=== PATIENT | female | born 1985 | race Caucasian/White ===

== ENCOUNTER 2016-04-08 02:43 | Emergency (ER) | payer OTHER ==
[2016-04-08] MEDS ORDERED: ONDANSETRON 4MG/2ML VIAL (J2405) As Ordered ONE (04:26)
[2016-04-08] MEDS ORDERED: MORPHINE 4 MG/ML 1ML SYRINGE As Ordered ONE ×2 (04:27→05:25)
[2016-04-08 04:34] LABS: BASO # 0.1 K/mm3 (0.0-0.2); BASO % 1.1 % (0.0-1.0); EOS # 0.2 K/mm3 (0.0-0.50); LARGE UNSTAINED CELL # 0.2 K/mm3 (0.0-0.4); LARGE UNSTAINED CELL % 1.7 % (0.0-4.0); LYMPH # 2.6 K/mm3 (1.5-4.5); LYMPH % 25.1 % (24.0-44.0); MEAN CORPUSCULAR HEMOGLOBIN 26.3 pg (27.0-33.0); MEAN CORPUSCULAR HGB CONC 32.2 g/dl (32.0-36.5); MEAN CORPUSCULAR VOLUME 81.9 fl (80.0-96.0); MONO # 0.4 K/mm3 (0.0-0.8); NEUTROPHILS # 6.5 K/mm3 (1.8-7.7); PLATELET COUNT, AUTOMATED 273 k/mm3 (150-450); RED CELL DISTRIBUTION WIDTH 14.7 % (11.5-14.5); WHITE BLOOD COUNT 9.8 K/mm3 (4.0-10.0)
[2016-04-08 04:41] LABS: CONTROL LINE HCG INT CTR LINE PRESENT
[2016-04-08 04:47] LABS: ALBUMIN 3.5 GM/DL (3.2-5.2); ALBUMIN/GLOBULIN RATIO 0.85 (1.00-1.93); ALKALINE PHOSPHATASE 140 U/L (45-117); ALT/SGPT 39 U/L (12-78); AMYLASE 26 U/L (25-115); ANION GAP 7 MEQ/L (8-16); AST/SGOT 32 U/L (15-37); BILIRUBIN,DIRECT 0.1 MG/DL (0.0-0.2); BILIRUBIN,TOTAL 0.3 MG/DL (0.2-1.0); BLOOD UREA NITROGEN 14 MG/DL (7-18); CARBON DIOXIDE LEVEL 28 MEQ/L (21-32); CHLORIDE LEVEL 109 MEQ/L (98-107); CREATININE FOR GFR 0.76 MG/DL (0.55-1.02); GLOMERULAR FILTRATION RATE > 60.0 (>60); GLUCOSE, FASTING 110 MG/DL (70-105); POTASSIUM SERUM 4.4 MEQ/L (3.5-5.1); SODIUM LEVEL 144 MEQ/L (136-145); TOTAL PROTEIN 7.6 GM/DL (6.4-8.2)
--- NOTE | 2016-04-08 06:20 | REPUSA ---
CLINICAL HISTORY: Pelvic pain. TECHNIQUE: Realtime sonographic images were obtained in multiple projections via TV approach. COMMENTS: The uterus is anteverted measuring 9.2x4.7x5.9 cm . Nabothian cysts of the uterine cervix. The endome trial echo pattern is within normal limits measuring 7.8 mm. There is no evidence of free fluid within the pelvic cul-de-sac. The right ovary measures 3.1x2.5x3.3 cm and the left ovary measures 3.7x2.3 times a 3 cm . Both ovari es are free of solid or cystic mass. There is no evidence for abnormal vascularity. IMPRESSION: Nabothian cysts of the uterine cervix. Thank you for your kind referral of this patient.
[2016-04-08] MEDS ORDERED: NORCO 5/325MG TABLET (BULK) As Ordered ONE (06:46)
--- NOTE | 2016-04-08 06:53 | EDDOCDS ---
Nurse's Notes [facility] Name: Som Escobar Age: 30 yrs Sex: Female : 1985 Arrival Date: 04/08/2016 Time: 02:43 Bed 14 Private MD: Diagnosis: Abdominal and pelvic pain Presentation: 04/08 02:56 Presenting complaint: Patient states: she is having pelvic pain that started around cz 2200 last night no vaginal discharge no UTI symptoms. pt states when she cough's it feels like her left groin area is burning/tearing. Adult Sepsis Screening: The patient does not have new or worsening altered mentation. Patient's respiratory rate is less than 22. Systolic blood pressure is greater than 100. Patient has a qSOFA score of 0- Negative Sepsis Screen. Suicide/Homicide risk assessment- the patient denies having any suicidal and/or homicidal ideations and does not present with any other emotional, behavioral or mental health complaints. Status: Patient is not a emergency medical service coordinator or dependent. Transition of care: patient was not received from another setting of care. 02:56 Acuity: JOSE Level 3 cz 02:56 Method Of Arrival: Walkin/Carried/Asstd cz Triage Assessment: 02:58 General: Appears uncomfortable. Pain: Location: left femoral area, left inguinal area cz and left iliac crest Pain currently is 10 out of 10 on a pain scale. HIV screening NA for this visit Offered previously. 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 lisinopril 20 mg Oral tab 1 tab once daily 2. metoprolol tartrate 100 mg Oral tab 1 tab once daily 3. amoxicillin 500 mg Oral cap 1 cap every 12 hours - PMHx: Hypertension; Polycystic Ovary Disease; - PSHx: Appendectomy; ; - Social history: Smoking status: Patient states former smoker of tobacco. No barriers to communication noted, The patient speaks fluent Lao, Speaks appropriately for age. - Family history: Not pertinent. - : The pt / caregiver states he / she is not on anticoagulants. Home medication list is obtained from the patient. - Exposure Risk Screening:: None identified. Screenin:39 Screening information is obtained from the patient. Fall risk: No risks identified. tm5 Assistance ADL's: requires no assistance with activities of daily living. Abuse/DV Screen: The patient / caregiver reports he/she is: not in a situation that causes fear, pain or injury. Nutritional screening: No deficits noted. Advance Directives: There is no active DNR order. home support is adequate. Assessment: 04:39 General: Appears uncomfortable, Behavior is appropriate for age, cooperative. Pain: tm5 Location: left femoral area and left inguinal area Pain currently is 8 out of 10 on a pain scale. Quality of pain is described as sharp. Neurological: Level of Consciousness is awake, alert, Oriented to person, place, time. Respiratory: Airway is patent Respiratory effort is even, unlabored, Respiratory pattern is regular, symmetrical. GI: Abdomen is obese, Bowel sounds present X 4 quads. Abd is soft and non tender X 4 quads. : No deficits noted. Derm: Skin is pink, warm & dry. normal. Musculoskeletal: No deficits noted. 06:14 Reassessment: Patient appears in no apparent distress at this time. Patient states tm5 feeling better. Patient states symptoms have improved. Vital Signs: 02:58 BP 141 / 101; Pulse 77; Resp 16; Temp 97.4(T); Pulse Ox 99% on R/A; Weight 104.33 kg; cz Height 5 ft. 3 in. (160.02 cm); 05:25 BP 148 / 85 (auto/); tm5 05:26 Pulse 68 MON; Resp 16 S; Pulse Ox 98% on R/A; Pain 8/10; tm5 06:31 BP 143 / 93; Pulse 69; Resp 18; Temp 96.3(O); Pulse Ox 97% on R/A; Pain 7/10; kb5 06:34 BP 139 / 92; Pulse 72; Resp 18; Temp 97.7(TE); Pulse Ox 96% on R/A; Pain 8/10; desmond 02:58 Body Mass Index 40.74 (104.33 kg, 160.02 cm) Vitals: 02:58 Log In Time: April 08, 2016 at 02:43. ED Course: 02:45 Patient visited by Guillaume Briggs, Reg. pm4 02:45 Patient moved to Waiting pm4 02:54 Patient moved to Triage 1 02:57 Triage Initiated cz 03:02 Patient moved to Pre RCE cz 03:06 Patient moved to 14 cz 03:22 Patient visited by Ang Godinez PCA. kb5 03:43 Mark Vargas DO is Attending Physician. mm11 03:43 Patient visited by Mark Vargas DO. mm11 03:47 Patient visited by Twila Stevenson RN. tm5 03:59 Patient visited by Mark Vargas DO. mm11 04:24 Patient visited by Twila Stevenson RN. tm5 04:24 Inserted saline lock: 20 gauge in right hand and blood collected. The patient tolerated tm5 the procedure well. Labs drawn. (by ED staff). Sent per order to lab. Urine collected. Clean catch specimen. 04:25 Amylase Sent. tm5 04:25 Basic Metabolic Profile Sent. tm5 04:25 CBC with Diff Sent. tm5 04:25 HCG,Serum Qualitative Sent. tm5 04:25 Lipase Sent. tm5 04:25 Liver Profile Sent. tm5 04:25 Urinalysis Sent. tm5 04:25 Urine Culture Sent. tm5 04:39 Patient visited by Twila Stevenson RN. tm5 04:39 The patient / caregiver is instructed regarding the plan of care and ED course. Pulse tm5 ox on. NIBP on. 04:59 Patient visited by Alona Singh PCA. desmond 04:59 Assist provider with pelvic exam: Set up pelvic tray. Specimens sent to lab. desmond 05:05 GC & Chlamydia Amplification Sent. desmond 05:05 Wet Prep Sent. desmond 05:06 [facility] Payment Agreement was scanned into [employer] and attached to record. hs2 05:16 Patient visited by Twila Stevenson RN. tm5 05:30 Patient moved to Ultrasound dmg 05:55 Patient moved to 14 dmg 06:02 Patient visited by Ang Godinez PCA. kb5 06:13 Patient visited by Twila Stevenson RN. tm5 06:26 Mily Flores MD is Referral Physician. mm11 06:31 Patient visited by Ang Godinez PCA. kb5 06:35 Patient visited by Alona Singh PCA. desmond 06:51 Discontinued lock intact, bleeding controlled, pressure dressing applied, No tm5 redness/swelling at site. Administered Medications: 04:41 Drug: NS 0.9% 1000 ml [sodium chloride 0.9 % intravenous solution] Route: IV; Rate: tm5 bolus; Site: right hand; 05:55 Follow up: IV Status: Completed infusion; IV Intake: 1000ml tm5 04:42 Drug: Ondansetron 4 mg [ondansetron HCl 2 mg/mL intravenous solution (2 mL)] Route: tm5 IVP; Site: right hand; 05:24 Follow up: Response: Nausea is resolved; No Adverse Reaction tm5 04:42 Drug: morphine 4 mg [morphine 4 mg/mL intravenous cartridge (1 mL)] Route: IVP; Site: tm5 right hand; 05:23 Follow up: Response: No Adverse Reaction; Pain is decreased tm5 05:28 Drug: morphine 4 mg [morphine 4 mg/mL intravenous cartridge (1 mL)] Route: IVP; Site: tm5 right hand; 06:00 Follow up: Response: No Adverse Reaction; Pain is decreased tm5 06:48 Drug: oxyCODONE-acetaminophen 4 pack 1 packets [oxycodone-acetaminophen 5 mg-325 mg tm5 tablet (1 tabs)] {Co-Signature: mlc (Kim Matthews RN).} Route: PO; 06:50 Follow up: Response: Confirmed pt not driving.; Med's dispensed home tm5 Intake: 05:55 IV: 1000.00ml; Total: 1000.00ml. tm5 Order Results: Lab Order: Amylase; SPEC'M 04/08/16 04:23 Test: AMYLASE; Value: 26; Range: 25-115; Units: U/L; Status: F Lab Order: Basic Metabolic Profile; SPEC'M 04/08/16 04:23 Test: GLUCOSE, FASTING; Value: 110; Range: 70-105; Abnormal: Above high normal; Units: MG/DL; Status: F Test: BLOOD UREA NITROGEN; Value: 14; Range: 7-18; Units: MG/DL; Status: F Test: CREATININE FOR GFR; Value: 0.76; Range: 0.55-1.02; Units: MG/DL; Status: F Test: SODIUM LEVEL; Range: 136-145; Units: MEQ/L; Status: I Test: POTASSIUM SERUM; Range: 3.5-5.1; Units: MEQ/L; Status: I Test: CHLORIDE LEVEL; Range: 98-107; Units: MEQ/L; Status: I Test: CARBON DIOXIDE LEVEL; Range: 21-32; Units: MEQ/L; Status: I Test: ANION GAP; Range: 8-16; Units: MEQ/L; Status: I Test: CALCIUM LEVEL; Range: 8.5-10.1; Units: MG/DL; Status: I Test: GLOMERULAR FILTRATION RATE; Value: > 60.0; Range: >60; Status: F Test: SODIUM LEVEL; Value: 144; Range: 136-145; Units: MEQ/L; Status: F Test: POTASSIUM SERUM; Value: 4.4; Range: 3.5-5.1; Units: MEQ/L; Status: F Test: CHLORIDE LEVEL; Value: 109; Range: 98-107; Abnormal: Above high normal; Units: MEQ/L; Status: F Test: CARBON DIOXIDE LEVEL; Value: 28; Range: 21-32; Units: MEQ/L; Status: F Test: ANION GAP; Value: 7; Range: 8-16; Abnormal: Below low normal; Units: MEQ/L; Status: F Test: CALCIUM LEVEL; Value: 9.0; Range: 8.5-10.1; Units: MG/DL; Status: F Test Note: ; Units are mL/min/1.73 m2 Chronic Kidney Disease Staging per NKF: Stage I & II GFR >=60 Normal to Mildly Decreased Stage III GFR 30-59 Moderately Decreased Stage IV GFR 15-29 Severely Decreased Stage V GFR <15 Very Little GFR Left ESRD GFR <15 on SECOND FACING BASTER Lab Order: CBC with Diff; SPEC'M 04/08/16 04:23 Test: WHITE BLOOD COUNT; Value: 9.8; Range: 4.0-10.0; Units: K/mm3; Status: F Test: RED BLOOD COUNT; Value: 5.11; Range: 4.00-5.40; Units: M/mm3; Status: F Test: HEMOGLOBIN; Value: 13.5; Range: 12.0-16.0; Units: g/dl; Status: F Test: HEMATOCRIT; Value: 41.8; Range: 36.0-47.0; Units: %; Status: F Test: MEAN CORPUSCULAR VOLUME; Value: 81.9; Range: 80.0-96.0; Units: fl; Status: F Test: MEAN CORPUSCULAR HEMOGLOBIN; Value: 26.3; Range: 27.0-33.0; Abnormal: Below low normal; Units: pg; Status: F Test: MEAN CORPUSCULAR HGB CONC; Value: 32.2; Range: 32.0-36.5; Units: g/dl; Status: F Test: RED CELL DISTRIBUTION WIDTH; Value: 14.7; Range: 11.5-14.5; Abnormal: Above high normal; Units: %; Status: F Test: PLATELET COUNT, AUTOMATED; Value: 273; Range: 150-450; Units: k/mm3; Status: F Test: NEUTROPHILS %; Value: 66.0; Range: 36.0-66.0; Units: %; Status: F Test: LYMPH %; Value: 25.1; Range: 24.0-44.0; Units: %; Status: F Test: MONO %; Value: 4.0; Range: 0.0-5.0; Units: %; Status: F Test: EOS %; Value: 2.0; Range: 0.0-3.0; Units: %; Status: F Test: BASO %; Value: 1.1; Range: 0.0-1.0; Abnormal: Above high normal; Units: %; Status: F Test: LARGE UNSTAINED CELL %; Value: 1.7; Range: 0.0-4.0; Units: %; Status: F Test: NEUTROPHILS #; Value: 6.5; Range: 1.8-7.7; Units: K/mm3; Status: F Test: LYMPH #; Value: 2.6; Range: 1.5-4.5; Units: K/mm3; Status: F Test: MONO #; Value: 0.4; Range: 0.0-0.8; Units: K/mm3; Status: F Test: EOS #; Value: 0.2; Range: 0.0-0.50; Units: K/mm3; Status: F Test: BASO #; Value: 0.1; Range: 0.0-0.2; Units: K/mm3; Status: F Test: LARGE UNSTAINED CELL #; Value: 0.2; Range: 0.0-0.4; Units: K/mm3; Status: F Lab Order: HCG,Serum Qualitative; SPEC 04/08/16 04:23 Test: HCG, SERUM QUALITATIVE; Value: NEGATIVE; Range: NEGATIVE; Status: F Lab Order: Lipase; [facility] 04/08/16 04:23 Test: LIPASE; Value: 76; Range: 73-393; Units: U/L; Status: F Lab Order: Liver Profile; [facility] 04/08/16 04:23 Test: AST/SGOT; Value: 32; Range: 15-37; Units: U/L; Status: F Test: ALT/SGPT; Value: 39; Range: 12-78; Units: U/L; Status: F Test: ALKALINE PHOSPHATASE; Value: 140; Range: 45-117; Abnormal: Above high normal; Units: U/L; Status: F Test: BILIRUBIN,TOTAL; Value: 0.3; Range: 0.2-1.0; Units: MG/DL; Status: F Test: BILIRUBIN,DIRECT; Value: 0.1; Range: 0.0-0.2; Units: MG/DL; Status: F Test: TOTAL PROTEIN; Value: 7.6; Range: 6.4-8.2; Units: GM/DL; Status: F Test: ALBUMIN; Value: 3.5; Range: 3.2-5.2; Units: GM/DL; Status: F Test: ALBUMIN/GLOBULIN RATIO; Value: 0.85; Range: 1.00-1.93; Abnormal: Below low normal; Status: F Lab Order: Urinalysis; [facility] 04/08/16 04:23 Test: APPEARANCE, URINE; Value: HAZY; Range: CLEAR; Status: F Test: COLOR, URINE; Value: YELLOW; Range: YELLOW; Status: F Test: PH,URINE; Value: 5.0; Range: 5.0-9.0; Units: UNITS; Status: F Test: SPECIFIC GRAVITY URINE AUTO; Value: 1.027; Range: 1.002-1.035; Status: F Test: PROTEIN, URINE AUTO; Value: NEGATIVE; Range: NEGATIVE; Units: mg/dL; Status: F Test: GLUCOSE, URINE (UA) AUTO; Value: NEGATIVE; Range: NEGATIVE; Units: mg/dL; Status: F Test: KETONE, URINE AUTO; Value: NEGATIVE; Range: NEGATIVE; Units: mg/dL; Status: F Test: UROBILINOGEN, URINE AUTO; Value: 0.2; Range: 0.0-2.0; Units: mg/dL; Status: F Test: BILIRUBIN, URINE AUTO; Value: NEGATIVE; Range: NEGATIVE; Status: F Test: NITRITE, URINE AUTO; Value: NEGATIVE; Range: NEGATIVE; Status: F Test: LEUKOCYTE ESTERASE, URINE AUTO; Value: 1+; Range: NEGATIVE; Abnormal: Above high normal; Status: F Test: BLOOD, URINE BLOOD; Value: 1+; Range: NEGATIVE; Abnormal: Above high normal; Status: F Test: WBC, URINE AUTO; Value: 4; Range: 0-3; Abnormal: Above high normal; Units: /HPF; Status: F Test: RBC, URINE AUTO; Value: 6; Range: 0-3; Abnormal: Above high normal; Units: /HPF; Status: F Test: BACTERIA, URINE AUTO; Value: NEGATIVE; Range: NEGATIVE; Status: F Test: SQUAMOUS EPITHELIAL CELL UR AU; Value: 4; Range: 0-6; Units: /HPF; Status: F Test: MUCUS, URINE; Value: SMALL; Range: NEGATIVE; Status: F Test: HYALINE CAST, URINE AUTO; Value: 0; Range: 0-1; Units: /LPF; Status: F Lab Order: Wet Prep; SPEC'M 04/08/16 05:06 Test: WET PREP; Value: WET PREP RESULT; Status: F Test: WET PREP; Value: MANY EPITHELIAL CELLS PRESENT; Status: F Test: WET PREP; Value: MODERATE WBC; Status: F Test: WET PREP; Value: FEW LONG RODS PRESENT; Status: F Test: WET PREP; Value: MODERATE SHORT RODS PRESENT; Status: F Outcome: 06:27 Discharge ordered by Provider. mm11 06:51 Discharge Assessment: Patient awake, alert and oriented x 3. No cognitive and/or tm5 functional deficits noted. Patient verbalized understanding of disposition instructions. patient administered narcotics - yes. Pt provided with safe discharge. The following High Risk Discharge criteria are identified: None. Discharged to home ambulatory, with parent. Condition: good Condition: stable Condition: improved. Discharge instructions given to patient, Instructed on discharge instructions, follow up and referral plans. medication usage, no driving heavy equipment, Demonstrated understanding of instructions, medications, Pt was receptive of discharge instructions/ teaching. Prescriptions given X 1. Ultrasound Study completed. Property :Personal belongings accompany Pt. 06:52 Patient left the ED. tm5 Signatures: Kenn Mcclelland, RN RN Juany Crocker Kristopher, PERSON INVESTIGATOR PERSON INVESTIGATOR kb5 Mark Vargas, DO mm11 Alona Singh, PERSON INVESTIGATOR PERSON INVESTIGATOR desmond Claudia Carter, Reg Reg hs2 Twila StevensonRN RN tm5 Guillaume Briggs, Reg Reg pm4 Kim Matthews RN mlc MTDD
--- NOTE | 2016-04-08 06:53 | EDDOCDS ---
Physician Documentation [facility] Name: Som Escobar Age: 30 yrs Sex: Female : 1985 Arrival Date: 04/08/2016 Time: 02:43 Bed 14 Private MD: Disposition: 04/08/16 06:27 Discharged to Home/Self Care. Impression: Abdominal and pelvic pain. - Condition is Stable. - Discharge Instructions: Abdominal Pain, Adult, Pelvic Pain, Female, Pelvic Pain, Female, [id number]. - Prescriptions for Percocet 5- 325 mg Oral Tablet - take 1 tablet by ORAL route every 6 hours As needed MDD: 4 tabs; 20 tablet. - Medication Reconciliation, Local Pharmacy Hours form. - Follow up: Mily Flores MD; When: As previously arranged; Reason: Continuance of care. - Problem is an acute exacerbation. - Symptoms have improved. Historical: - Allergies: No known drug Allergies; - Home Meds: 1. lisinopril 20 mg Oral tab 1 tab once daily 2. metoprolol tartrate 100 mg Oral tab 1 tab once daily 3. amoxicillin 500 mg Oral cap 1 cap every 12 hours - PMHx: Hypertension; Polycystic Ovary Disease; - PSHx: Appendectomy; ; - Social history: Smoking status: Patient states former smoker of tobacco. No barriers to communication noted, The patient speaks fluent Swiss, Speaks appropriately for age. - Family history: Not pertinent. - : The pt / caregiver states he / she is not on anticoagulants. Home medication list is obtained from the patient. - Exposure Risk Screening:: None identified. 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 3 in. (160.02 cm); 05:25 BP 148 / 85 (auto/); tm5 05:26 Pulse 68 MON; Resp 16 S; Pulse Ox 98% on R/A; Pain 8/10; tm5 06:31 BP 143 / 93; Pulse 69; Resp 18; Temp 96.3(O); Pulse Ox 97% on R/A; Pain 7/10; kb5 06:34 BP 139 / 92; Pulse 72; Resp 18; Temp 97.7(TE); Pulse Ox 96% on R/A; Pain 8/10; desmond 02:58 Body Mass Index 40.74 (104.33 kg, 160.02 cm) cz MDM: 04:00 NS 0.9% 1000 ml IV at bolus once ordered. mm11 04:00 Ondansetron 4 mg IVP once ordered. mm11 04:01 morphine 4 mg IVP every 30 minutes; Document pain score/vitals after each dose (Hold if mm11 SBP < 90mmHg) x2 ordered. 04:01 IV Saline Lock ordered. mm11 04:01 Undress patient appropriately for examination ordered. mm11 04:01 Set up pelvic ordered. mm11 04:01 Amylase Ordered. EDMS 04:01 Basic Metabolic Profile Ordered. EDMS 04:01 CBC with Diff Ordered. EDMS 04:01 HCG,Serum Qualitative Ordered. EDMS 04:01 Lipase Ordered. EDMS 04:01 Liver Profile Ordered. EDMS 04:01 Urinalysis Ordered. EDMS 04:01 Urine Culture Ordered. EDMS 04:02 NOTHING BY MOUTH+DIET ordered. EDMS 04:40 CBC with Diff Reviewed. mm11 04:47 Urinalysis Reviewed. mm11 04:47 HCG,Serum Qualitative Reviewed. mm11 04:53 Basic Metabolic Profile Reviewed. mm11 04:53 Liver Profile Reviewed. mm11 04:53 Amylase Reviewed. mm11 04:53 HCG,Serum Qualitative Reviewed. mm11 04:53 Lipase Reviewed. mm11 04:59 GC & Chlamydia Amplification Ordered. EDMS 04:59 Wet Prep Ordered. EDMS 05:05 Financial registration complete. hs2 05:06 [facility] Payment Agreement was scanned into [employer] and attached to record. hs2 05:20 Wet Prep Reviewed. mm11 05:20 -US Pelvic Non-Ob Complete Ordered. EDMS 05:20 DUPLEX SCAN LIMITED (DOPPLER)+US Ordered. EDMS 05:56 Transvaginal NON- US Ordered. EDMS 06:26 oxyCODONE-acetaminophen 4 pack 5 mg-325 mg 1 packets PO once; Dispense with pt, take as mm11 per instruction on package ordered. Administered Medications: 04:41 Drug: NS 0.9% 1000 ml [sodium chloride 0.9 % intravenous solution] Route: IV; Rate: tm5 bolus; Site: right hand; 05:55 Follow up: IV Status: Completed infusion; IV Intake: 1000ml tm5 04:42 Drug: Ondansetron 4 mg [ondansetron HCl 2 mg/mL intravenous solution (2 mL)] Route: tm5 IVP; Site: right hand; 05:24 Follow up: Response: Nausea is resolved; No Adverse Reaction tm5 04:42 Drug: morphine 4 mg [morphine 4 mg/mL intravenous cartridge (1 mL)] Route: IVP; Site: tm5 right hand; 05:23 Follow up: Response: No Adverse Reaction; Pain is decreased tm5 05:28 Drug: morphine 4 mg [morphine 4 mg/mL intravenous cartridge (1 mL)] Route: IVP; Site: tm5 right hand; 06:00 Follow up: Response: No Adverse Reaction; Pain is decreased tm5 06:48 Drug: oxyCODONE-acetaminophen 4 pack 1 packets [oxycodone-acetaminophen 5 mg-325 mg tm5 tablet (1 tabs)] {Co-Signature: mlc (Kim Matthews RN).} Route: PO; 06:50 Follow up: Response: Confirmed pt not driving.; Med's dispensed home tm5 Signatures: Dispatcher [employer] Kenn Hager, Mark Phillips RN, DO DO mm11 Claudia Carter, Reg Reg hs2 Twila Stevenson RN RN tm5 Kim phillips The chart was reviewed and I authenticate all verbal orders and agree with the evaluation and treatment provided.Attachments: 05:06 [facility] Payment Agreement hs2 MTDD
--- NOTE | 2016-04-10 07:53 | EDDOCDS ---
Physician Documentation [facility] Name: Som Escobar Age: 30 yrs Sex: Female : 1985 Arrival Date: 04/08/2016 Time: 02:43 Bed 14 Private MD: Disposition: 04/08/16 06:27 Discharged to Home/Self Care. Impression: Abdominal and pelvic pain. - Condition is Stable. - Discharge Instructions: Abdominal Pain, Adult, Pelvic Pain, Female, Pelvic Pain, Female, [id number]. - Prescriptions for Percocet 5- 325 mg Oral Tablet - take 1 tablet by ORAL route every 6 hours As needed MDD: 4 tabs; 20 tablet. - Medication Reconciliation, Local Pharmacy Hours form. - Follow up: Mily Flores MD; When: As previously arranged; Reason: Continuance of care. - Problem is an acute exacerbation. - Symptoms have improved. Historical: - Allergies: No known drug Allergies; - Home Meds: 1. lisinopril 20 mg Oral tab 1 tab once daily 2. metoprolol tartrate 100 mg Oral tab 1 tab once daily 3. amoxicillin 500 mg Oral cap 1 cap every 12 hours - PMHx: Hypertension; Polycystic Ovary Disease; - PSHx: Appendectomy; ; - Social history: Smoking status: Patient states former smoker of tobacco. No barriers to communication noted, The patient speaks fluent Cymraes, Speaks appropriately for age. - Family history: Not pertinent. - : The pt / caregiver states he / she is not on anticoagulants. Home medication list is obtained from the patient. - Exposure Risk Screening:: None identified. 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 3 in. (160.02 cm); 05:25 BP 148 / 85 (auto/); tm5 05:26 Pulse 68 MON; Resp 16 S; Pulse Ox 98% on R/A; Pain 8/10; tm5 06:31 BP 143 / 93; Pulse 69; Resp 18; Temp 96.3(O); Pulse Ox 97% on R/A; Pain 7/10; kb5 06:34 BP 139 / 92; Pulse 72; Resp 18; Temp 97.7(TE); Pulse Ox 96% on R/A; Pain 8/10; desmond 02:58 Body Mass Index 40.74 (104.33 kg, 160.02 cm) cz MDM: 04:00 NS 0.9% 1000 ml IV at bolus once ordered. mm11 04:00 Ondansetron 4 mg IVP once ordered. mm11 04:01 morphine 4 mg IVP every 30 minutes; Document pain score/vitals after each dose (Hold if mm11 SBP < 90mmHg) x2 ordered. 04:01 IV Saline Lock ordered. mm11 04:01 Undress patient appropriately for examination ordered. mm11 04:01 Set up pelvic ordered. mm11 04:01 Amylase Ordered. EDMS 04:01 Basic Metabolic Profile Ordered. EDMS 04:01 CBC with Diff Ordered. EDMS 04:01 HCG,Serum Qualitative Ordered. EDMS 04:01 Lipase Ordered. EDMS 04:01 Liver Profile Ordered. EDMS 04:01 Urinalysis Ordered. EDMS 04:01 Urine Culture Ordered. EDMS 04:02 NOTHING BY MOUTH+DIET ordered. EDMS 04:40 CBC with Diff Reviewed. mm11 04:47 Urinalysis Reviewed. mm11 04:47 HCG,Serum Qualitative Reviewed. mm11 04:53 Basic Metabolic Profile Reviewed. mm11 04:53 Liver Profile Reviewed. mm11 04:53 Amylase Reviewed. mm11 04:53 HCG,Serum Qualitative Reviewed. mm11 04:53 Lipase Reviewed. mm11 04:59 GC & Chlamydia Amplification Ordered. EDMS 04:59 Wet Prep Ordered. EDMS 05:05 Financial registration complete. hs2 05:06 [facility] [place] Payment Agreement was scanned into [employer] and attached to record. hs2 05:20 Wet Prep Reviewed. mm11 05:20 -US Pelvic Non-Ob Complete Ordered. EDMS 05:20 DUPLEX SCAN LIMITED (DOPPLER)+US Ordered. EDMS 05:56 Transvaginal NON- US Ordered. EDMS 06:26 oxyCODONE-acetaminophen 4 pack 5 mg-325 mg 1 packets PO once; Dispense with pt, take as mm11 per instruction on package ordered. 12:11 T-Sheet-- Draft Copy was scanned into [employer] and attached to record. gb 12:11 Radiology Report was scanned into [employer] and attached to record. gb Administered Medications: 04:41 Drug: NS 0.9% 1000 ml [sodium chloride 0.9 % intravenous solution] Route: IV; Rate: tm5 bolus; Site: right hand; 05:55 Follow up: IV Status: Completed infusion; IV Intake: 1000ml tm5 04:42 Drug: Ondansetron 4 mg [ondansetron HCl 2 mg/mL intravenous solution (2 mL)] Route: tm5 IVP; Site: right hand; 05:24 Follow up: Response: Nausea is resolved; No Adverse Reaction tm5 04:42 Drug: morphine 4 mg [morphine 4 mg/mL intravenous cartridge (1 mL)] Route: IVP; Site: tm5 right hand; 05:23 Follow up: Response: No Adverse Reaction; Pain is decreased tm5 05:28 Drug: morphine 4 mg [morphine 4 mg/mL intravenous cartridge (1 mL)] Route: IVP; Site: tm5 right hand; 06:00 Follow up: Response: No Adverse Reaction; Pain is decreased tm5 06:48 Drug: oxyCODONE-acetaminophen 4 pack 1 packets [oxycodone-acetaminophen 5 mg-325 mg tm5 tablet (1 tabs)] {Co-Signature: mlc (Kim Matthews RN).} Route: PO; 06:50 Follow up: Response: Confirmed pt not driving.; Med's dispensed home tm5 Signatures: Dispatcher [employer] EDKenn Bonilla RN RN cz Barnhardt, Gloria, Reg Reg gb Mark Vargas, DO mm11 Claudia Carter, Reg Reg hs2 Twila Stevenson RN RN tm5 Kim phillips The chart was reviewed and I authenticate all verbal orders and agree with the evaluation and treatment provided.Attachments: 05:06 [facility] [place] Payment Agreement hs2 12:11 T-Sheet-- Draft Copy Chart Complete MTDD
--- NOTE | 2016-04-10 07:53 | EDDOCDS ---
Nurse's Notes [facility] Name: Som Escobar Age: 30 yrs Sex: Female : 1985 Arrival Date: 04/08/2016 Time: 02:43 Bed 14 Private MD: Diagnosis: Abdominal and pelvic pain Presentation: 04/08 02:56 Presenting complaint: Patient states: she is having pelvic pain that started around cz 2200 last night no vaginal discharge no UTI symptoms. pt states when she cough's it feels like her left groin area is burning/tearing. Adult Sepsis Screening: The patient does not have new or worsening altered mentation. Patient's respiratory rate is less than 22. Systolic blood pressure is greater than 100. Patient has a qSOFA score of 0- Negative Sepsis Screen. Suicide/Homicide risk assessment- the patient denies having any suicidal and/or homicidal ideations and does not present with any other emotional, behavioral or mental health complaints. Status: Patient is not a access services librarian or dependent. Transition of care: patient was not received from another setting of care. 02:56 Acuity: JOSE Level 3 cz 02:56 Method Of Arrival: Walkin/Carried/Asstd cz Triage Assessment: 02:58 General: Appears uncomfortable. Pain: Location: left femoral area, left inguinal area cz and left iliac crest Pain currently is 10 out of 10 on a pain scale. HIV screening NA for this visit Offered previously. 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 lisinopril 20 mg Oral tab 1 tab once daily 2. metoprolol tartrate 100 mg Oral tab 1 tab once daily 3. amoxicillin 500 mg Oral cap 1 cap every 12 hours - PMHx: Hypertension; Polycystic Ovary Disease; - PSHx: Appendectomy; ; - Social history: Smoking status: Patient states former smoker of tobacco. No barriers to communication noted, The patient speaks fluent Lithuanian, Speaks appropriately for age. - Family history: Not pertinent. - : The pt / caregiver states he / she is not on anticoagulants. Home medication list is obtained from the patient. - Exposure Risk Screening:: None identified. Screenin:39 Screening information is obtained from the patient. Fall risk: No risks identified. tm5 Assistance ADL's: requires no assistance with activities of daily living. Abuse/DV Screen: The patient / caregiver reports he/she is: not in a situation that causes fear, pain or injury. Nutritional screening: No deficits noted. Advance Directives: There is no active DNR order. home support is adequate. Assessment: 04:39 General: Appears uncomfortable, Behavior is appropriate for age, cooperative. Pain: tm5 Location: left femoral area and left inguinal area Pain currently is 8 out of 10 on a pain scale. Quality of pain is described as sharp. Neurological: Level of Consciousness is awake, alert, Oriented to person, place, time. Respiratory: Airway is patent Respiratory effort is even, unlabored, Respiratory pattern is regular, symmetrical. GI: Abdomen is obese, Bowel sounds present X 4 quads. Abd is soft and non tender X 4 quads. : No deficits noted. Derm: Skin is pink, warm & dry. normal. Musculoskeletal: No deficits noted. 06:14 Reassessment: Patient appears in no apparent distress at this time. Patient states tm5 feeling better. Patient states symptoms have improved. Vital Signs: 02:58 BP 141 / 101; Pulse 77; Resp 16; Temp 97.4(T); Pulse Ox 99% on R/A; Weight 104.33 kg; cz Height 5 ft. 3 in. (160.02 cm); 05:25 BP 148 / 85 (auto/); tm5 05:26 Pulse 68 MON; Resp 16 S; Pulse Ox 98% on R/A; Pain 8/10; tm5 06:31 BP 143 / 93; Pulse 69; Resp 18; Temp 96.3(O); Pulse Ox 97% on R/A; Pain 7/10; kb5 06:34 BP 139 / 92; Pulse 72; Resp 18; Temp 97.7(TE); Pulse Ox 96% on R/A; Pain 8/10; desmond 02:58 Body Mass Index 40.74 (104.33 kg, 160.02 cm) Vitals: 02:58 Log In Time: April 08, 2016 at 02:43. ED Course: 02:45 Patient visited by Guillaume Briggs, Reg. pm4 02:45 Patient moved to Waiting pm4 02:54 Patient moved to Triage 1 02:57 Triage Initiated cz 03:02 Patient moved to Pre RCE cz 03:06 Patient moved to 14 cz 03:22 Patient visited by Ang Godinez PCA. kb5 03:43 Mark Vargas DO is Attending Physician. mm11 03:43 Patient visited by Mark Vargas DO. mm11 03:47 Patient visited by Twila Stevenson RN. tm5 03:59 Patient visited by Mark Vargas DO. mm11 04:24 Patient visited by Twila Stevenson RN. tm5 04:24 Inserted saline lock: 20 gauge in right hand and blood collected. The patient tolerated tm5 the procedure well. Labs drawn. (by ED staff). Sent per order to lab. Urine collected. Clean catch specimen. 04:25 Amylase Sent. tm5 04:25 Basic Metabolic Profile Sent. tm5 04:25 CBC with Diff Sent. tm5 04:25 HCG,Serum Qualitative Sent. tm5 04:25 Lipase Sent. tm5 04:25 Liver Profile Sent. tm5 04:25 Urinalysis Sent. tm5 04:25 Urine Culture Sent. tm5 04:39 Patient visited by Twila Stevenson RN. tm5 04:39 The patient / caregiver is instructed regarding the plan of care and ED course. Pulse tm5 ox on. NIBP on. 04:59 Patient visited by Alona Singh PCA. desmond 04:59 Assist provider with pelvic exam: Set up pelvic tray. Specimens sent to lab. desmond 05:05 GC & Chlamydia Amplification Sent. desmond 05:05 Wet Prep Sent. desmond 05:06 [facility] Agreement was scanned into [employer] and attached to record. hs2 05:16 Patient visited by Twila Stevenson RN. tm5 05:30 Patient moved to Ultrasound dmg 05:55 Patient moved to 14 dmg 06:02 Patient visited by Ang Godinez PCA. kb5 06:13 Patient visited by Twila Stevenson RN. tm5 06:26 Mily Flores MD is Referral Physician. mm11 06:31 Patient visited by Ang Godinez PCA. kb5 06:35 Patient visited by Alona Singh PCA. desmond 06:51 Discontinued lock intact, bleeding controlled, pressure dressing applied, No tm5 redness/swelling at site. 06:53 -US Pelvic Non-Ob Complete Returned. EDMS 12:11 T-Sheet-- Draft Copy was scanned into [employer] and attached to record. gb 12:11 Radiology Report was scanned into [employer] and attached to record. gb Administered Medications: 04:41 Drug: NS 0.9% 1000 ml [sodium chloride 0.9 % intravenous solution] Route: IV; Rate: tm5 bolus; Site: right hand; 05:55 Follow up: IV Status: Completed infusion; IV Intake: 1000ml tm5 04:42 Drug: Ondansetron 4 mg [ondansetron HCl 2 mg/mL intravenous solution (2 mL)] Route: tm5 IVP; Site: right hand; 05:24 Follow up: Response: Nausea is resolved; No Adverse Reaction tm5 04:42 Drug: morphine 4 mg [morphine 4 mg/mL intravenous cartridge (1 mL)] Route: IVP; Site: tm5 right hand; 05:23 Follow up: Response: No Adverse Reaction; Pain is decreased tm5 05:28 Drug: morphine 4 mg [morphine 4 mg/mL intravenous cartridge (1 mL)] Route: IVP; Site: tm5 right hand; 06:00 Follow up: Response: No Adverse Reaction; Pain is decreased tm5 06:48 Drug: oxyCODONE-acetaminophen 4 pack 1 packets [oxycodone-acetaminophen 5 mg-325 mg tm5 tablet (1 tabs)] {Co-Signature: mlc (Kim Matthews RN).} Route: PO; 06:50 Follow up: Response: Confirmed pt not driving.; Med's dispensed home tm5 Intake: 05:55 IV: 1000.00ml; Total: 1000.00ml. tm5 Order Results: Lab Order: Amylase; SPEC'M 04/08/16 04:23 Test: AMYLASE; Value: 26; Range: 25-115; Units: U/L; Status: F Lab Order: Basic Metabolic Profile; SPEC'M 04/08/16 04:23 Test: GLUCOSE, FASTING; Value: 110; Range: 70-105; Abnormal: Above high normal; Units: MG/DL; Status: F Test: BLOOD UREA NITROGEN; Value: 14; Range: 7-18; Units: MG/DL; Status: F Test: CREATININE FOR GFR; Value: 0.76; Range: 0.55-1.02; Units: MG/DL; Status: F Test: SODIUM LEVEL; Range: 136-145; Units: MEQ/L; Status: I Test: POTASSIUM SERUM; Range: 3.5-5.1; Units: MEQ/L; Status: I Test: CHLORIDE LEVEL; Range: 98-107; Units: MEQ/L; Status: I Test: CARBON DIOXIDE LEVEL; Range: 21-32; Units: MEQ/L; Status: I Test: ANION GAP; Range: 8-16; Units: MEQ/L; Status: I Test: CALCIUM LEVEL; Range: 8.5-10.1; Units: MG/DL; Status: I Test: GLOMERULAR FILTRATION RATE; Value: > 60.0; Range: >60; Status: F Test: SODIUM LEVEL; Value: 144; Range: 136-145; Units: MEQ/L; Status: F Test: POTASSIUM SERUM; Value: 4.4; Range: 3.5-5.1; Units: MEQ/L; Status: F Test: CHLORIDE LEVEL; Value: 109; Range: 98-107; Abnormal: Above high normal; Units: MEQ/L; Status: F Test: CARBON DIOXIDE LEVEL; Value: 28; Range: 21-32; Units: MEQ/L; Status: F Test: ANION GAP; Value: 7; Range: 8-16; Abnormal: Below low normal; Units: MEQ/L; Status: F Test: CALCIUM LEVEL; Value: 9.0; Range: 8.5-10.1; Units: MG/DL; Status: F Test Note: ; Units are mL/min/1.73 m2 Chronic Kidney Disease Staging per NKF: Stage I & II GFR >=60 Normal to Mildly Decreased Stage III GFR 30-59 Moderately Decreased Stage IV GFR 15-29 Severely Decreased Stage V GFR <15 Very Little GFR Left ESRD GFR <15 on SKATE MAKER Lab Order: CBC with Diff; SPEC'M 04/08/16 04:23 Test: WHITE BLOOD COUNT; Value: 9.8; Range: 4.0-10.0; Units: K/mm3; Status: F Test: RED BLOOD COUNT; Value: 5.11; Range: 4.00-5.40; Units: M/mm3; Status: F Test: HEMOGLOBIN; Value: 13.5; Range: 12.0-16.0; Units: g/dl; Status: F Test: HEMATOCRIT; Value: 41.8; Range: 36.0-47.0; Units: %; Status: F Test: MEAN CORPUSCULAR VOLUME; Value: 81.9; Range: 80.0-96.0; Units: fl; Status: F Test: MEAN CORPUSCULAR HEMOGLOBIN; Value: 26.3; Range: 27.0-33.0; Abnormal: Below low normal; Units: pg; Status: F Test: MEAN CORPUSCULAR HGB CONC; Value: 32.2; Range: 32.0-36.5; Units: g/dl; Status: F Test: RED CELL DISTRIBUTION WIDTH; Value: 14.7; Range: 11.5-14.5; Abnormal: Above high normal; Units: %; Status: F Test: PLATELET COUNT, AUTOMATED; Value: 273; Range: 150-450; Units: k/mm3; Status: F Test: NEUTROPHILS %; Value: 66.0; Range: 36.0-66.0; Units: %; Status: F Test: LYMPH %; Value: 25.1; Range: 24.0-44.0; Units: %; Status: F Test: MONO %; Value: 4.0; Range: 0.0-5.0; Units: %; Status: F Test: EOS %; Value: 2.0; Range: 0.0-3.0; Units: %; Status: F Test: BASO %; Value: 1.1; Range: 0.0-1.0; Abnormal: Above high normal; Units: %; Status: F Test: LARGE UNSTAINED CELL %; Value: 1.7; Range: 0.0-4.0; Units: %; Status: F Test: NEUTROPHILS #; Value: 6.5; Range: 1.8-7.7; Units: K/mm3; Status: F Test: LYMPH #; Value: 2.6; Range: 1.5-4.5; Units: K/mm3; Status: F Test: MONO #; Value: 0.4; Range: 0.0-0.8; Units: K/mm3; Status: F Test: EOS #; Value: 0.2; Range: 0.0-0.50; Units: K/mm3; Status: F Test: BASO #; Value: 0.1; Range: 0.0-0.2; Units: K/mm3; Status: F Test: LARGE UNSTAINED CELL #; Value: 0.2; Range: 0.0-0.4; Units: K/mm3; Status: F Lab Order: HCG,Serum Qualitative; 04/08/16: Test: HCG, SERUM QUALITATIVE; Value: NEGATIVE; Range: NEGATIVE; Status: F Lab Order: Lipase; 04/08/16 Test: LIPASE; Value: 76; Range: 73-393; Units: U/L; Status: F Lab Order: Liver Profile; 04/08/16 Test: AST/SGOT; Value: 32; Range: 15-37; Units: U/L; Status: F Test: ALT/SGPT; Value: 39; Range: 12-78; Units: U/L; Status: F Test: ALKALINE PHOSPHATASE; Value: 140; Range: 45-117; Abnormal: Above high normal; Units: U/L; Status: F Test: BILIRUBIN,TOTAL; Value: 0.3; Range: 0.2-1.0; Units: MG/DL; Status: F Test: BILIRUBIN,DIRECT; Value: 0.1; Range: 0.0-0.2; Units: MG/DL; Status: F Test: TOTAL PROTEIN; Value: 7.6; Range: 6.4-8.2; Units: GM/DL; Status: F Test: ALBUMIN; Value: 3.5; Range: 3.2-5.2; Units: GM/DL; Status: F Test: ALBUMIN/GLOBULIN RATIO; Value: 0.85; Range: 1.00-1.93; Abnormal: Below low normal; Status: F Lab Order: Urinalysis; 04/08/16 Test: APPEARANCE, URINE; Value: HAZY; Range: CLEAR; Status: F Test: COLOR, URINE; Value: YELLOW; Range: YELLOW; Status: F Test: PH,URINE; Value: 5.0; Range: 5.0-9.0; Units: UNITS; Status: F Test: SPECIFIC GRAVITY URINE AUTO; Value: 1.027; Range: 1.002-1.035; Status: F Test: PROTEIN, URINE AUTO; Value: NEGATIVE; Range: NEGATIVE; Units: mg/dL; Status: F Test: GLUCOSE, URINE (UA) AUTO; Value: NEGATIVE; Range: NEGATIVE; Units: mg/dL; Status: F Test: KETONE, URINE AUTO; Value: NEGATIVE; Range: NEGATIVE; Units: mg/dL; Status: F Test: UROBILINOGEN, URINE AUTO; Value: 0.2; Range: 0.0-2.0; Units: mg/dL; Status: F Test: BILIRUBIN, URINE AUTO; Value: NEGATIVE; Range: NEGATIVE; Status: F Test: NITRITE, URINE AUTO; Value: NEGATIVE; Range: NEGATIVE; Status: F Test: LEUKOCYTE ESTERASE, URINE AUTO; Value: 1+; Range: NEGATIVE; Abnormal: Above high normal; Status: F Test: BLOOD, URINE BLOOD; Value: 1+; Range: NEGATIVE; Abnormal: Above high normal; Status: F Test: WBC, URINE AUTO; Value: 4; Range: 0-3; Abnormal: Above high normal; Units: /HPF; Status: F Test: RBC, URINE AUTO; Value: 6; Range: 0-3; Abnormal: Above high normal; Units: /HPF; Status: F Test: BACTERIA, URINE AUTO; Value: NEGATIVE; Range: NEGATIVE; Status: F Test: SQUAMOUS EPITHELIAL CELL UR AU; Value: 4; Range: 0-6; Units: /HPF; Status: F Test: MUCUS, URINE; Value: SMALL; Range: NEGATIVE; Status: F Test: HYALINE CAST, URINE AUTO; Value: 0; Range: 0-1; Units: /LPF; Status: F Lab Order: Urine Culture; SPEC'M 04/08/16 04:23 Test: URINE CULTURE; Value: URINE CULTURE RESULT NO GROWTH; Status: F Lab Order: Wet Prep; SPEC'M 04/08/16 05:06 Test: WET PREP; Value: WET PREP RESULT; Status: F Test: WET PREP; Value: MANY EPITHELIAL CELLS PRESENT; Status: F Test: WET PREP; Value: MODERATE WBC; Status: F Test: WET PREP; Value: FEW LONG RODS PRESENT; Status: F Test: WET PREP; Value: MODERATE SHORT RODS PRESENT; Status: F Lab Order: GC & Chlamydia Amplification; SPEC'M 04/08/16 05:06 Test: CHLAMYDIA DNA AMPLIFICATION; Value: NEGATIVE; Range: NEGATIVE; Status: F Test: GC DNA AMPLIFICATION; Value: NEGATIVE; Range: NEGATIVE; Status: F Radiology Order: -US Pelvic Non-Ob Complete Test: -US Pelvic Non-Ob Complete REASON FOR EXAMINATION: Adnexal Pain r/o Torsion; ; CLINICAL HISTORY: Pelvic pain.; TECHNIQUE: Realtime sonographic images were obtained in multiple projections via TV approach.; COMMENTS:; The uterus is anteverted measuring 9.2x4.7x5.9 cm . Nabothian cysts of the uterine cervix. The endome; trial echo pattern is within normal limits measuring 7.8 mm.; There is no evidence of free fluid within the pelvic cul-de-sac.; The right ovary measures 3.1x2.5x3.3 cm and the left ovary measures 3.7x2.3 times a 3 cm . Both ovari; es are free of solid or cystic mass.; There is no evidence for abnormal vascularity.; IMPRESSION:; Nabothian cysts of the uterine cervix.; Thank you for your kind referral of this patient.; ; ; Outcome: 06:27 Discharge ordered by Provider. mm11 06:51 Discharge Assessment: Patient awake, alert and oriented x 3. No cognitive and/or tm5 functional deficits noted. Patient verbalized understanding of disposition instructions. patient administered narcotics - yes. Pt provided with safe discharge. The following High Risk Discharge criteria are identified: None. Discharged to home ambulatory, with parent. Condition: good Condition: stable Condition: improved. Discharge instructions given to patient, Instructed on discharge instructions, follow up and referral plans. medication usage, no driving heavy equipment, Demonstrated understanding of instructions, medications, Pt was receptive of discharge instructions/ teaching. Prescriptions given X 1. Ultrasound Study completed. Property :Personal belongings accompany Pt. 06:52 Patient left the ED. tm5 Signatures: Dispatcher [employer] EDMS Kenn Mcclelland RN RN cz Gunn, Deanne dmg Barnhardt, Gloria, Reg Reg gb Ang Godinez, DOUGH CUTTER DOUGH CUTTER kb5 Mark Vargas, DO DO mm11 Alona Singh, DOUGH CUTTER DOUGH CUTTER desmond Claudia Carter, Reg Reg hs2 Twila Stevenson RN RN tm5 Guillaume Briggs, Reg Reg pm4 Kim Matthews RN mlc Chart Complete MTDD
--- NOTE | 2016-04-10 07:53 | EDDOCDS ---
Physician Documentation [facility] Name: Som Escobar Age: 30 yrs Sex: Female : 1985 Arrival Date: 04/08/2016 Time: 02:43 Bed 14 Private MD: Disposition: 04/08/16 06:27 Discharged to Home/Self Care. Impression: Abdominal and pelvic pain. - Condition is Stable. - Discharge Instructions: Abdominal Pain, Adult, Pelvic Pain, Female, Pelvic Pain, Female, [id number]. - Prescriptions for Percocet 5- 325 mg Oral Tablet - take 1 tablet by ORAL route every 6 hours As needed MDD: 4 tabs; 20 tablet. - Medication Reconciliation, Local Pharmacy Hours form. - Follow up: Mily Flores MD; When: As previously arranged; Reason: Continuance of care. - Problem is an acute exacerbation. - Symptoms have improved. Historical: - Allergies: No known drug Allergies; - Home Meds: 1. lisinopril 20 mg Oral tab 1 tab once daily 2. metoprolol tartrate 100 mg Oral tab 1 tab once daily 3. amoxicillin 500 mg Oral cap 1 cap every 12 hours - PMHx: Hypertension; Polycystic Ovary Disease; - PSHx: Appendectomy; ; - Social history: Smoking status: Patient states former smoker of tobacco. No barriers to communication noted, The patient speaks fluent Micronesian, Speaks appropriately for age. - Family history: Not pertinent. - : The pt / caregiver states he / she is not on anticoagulants. Home medication list is obtained from the patient. - Exposure Risk Screening:: None identified. 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 3 in. (160.02 cm); 05:25 BP 148 / 85 (auto/); tm5 05:26 Pulse 68 MON; Resp 16 S; Pulse Ox 98% on R/A; Pain 8/10; tm5 06:31 BP 143 / 93; Pulse 69; Resp 18; Temp 96.3(O); Pulse Ox 97% on R/A; Pain 7/10; kb5 06:34 BP 139 / 92; Pulse 72; Resp 18; Temp 97.7(TE); Pulse Ox 96% on R/A; Pain 8/10; desmond 02:58 Body Mass Index 40.74 (104.33 kg, 160.02 cm) cz MDM: 04:00 NS 0.9% 1000 ml IV at bolus once ordered. mm11 04:00 Ondansetron 4 mg IVP once ordered. mm11 04:01 morphine 4 mg IVP every 30 minutes; Document pain score/vitals after each dose (Hold if mm11 SBP < 90mmHg) x2 ordered. 04:01 IV Saline Lock ordered. mm11 04:01 Undress patient appropriately for examination ordered. mm11 04:01 Set up pelvic ordered. mm11 04:01 Amylase Ordered. EDMS 04:01 Basic Metabolic Profile Ordered. EDMS 04:01 CBC with Diff Ordered. EDMS 04:01 HCG,Serum Qualitative Ordered. EDMS 04:01 Lipase Ordered. EDMS 04:01 Liver Profile Ordered. EDMS 04:01 Urinalysis Ordered. EDMS 04:01 Urine Culture Ordered. EDMS 04:02 NOTHING BY MOUTH+DIET ordered. EDMS 04:40 CBC with Diff Reviewed. mm11 04:47 Urinalysis Reviewed. mm11 04:47 HCG,Serum Qualitative Reviewed. mm11 04:53 Basic Metabolic Profile Reviewed. mm11 04:53 Liver Profile Reviewed. mm11 04:53 Amylase Reviewed. mm11 04:53 HCG,Serum Qualitative Reviewed. mm11 04:53 Lipase Reviewed. mm11 04:59 GC & Chlamydia Amplification Ordered. EDMS 04:59 Wet Prep Ordered. EDMS 05:05 Financial registration complete. hs2 05:06 [facility] [place] Agreement was scanned into [employer] and attached to record. hs2 05:20 Wet Prep Reviewed. mm11 05:20 -US Pelvic Non-Ob Complete Ordered. EDMS 05:20 DUPLEX SCAN LIMITED (DOPPLER)+US Ordered. EDMS 05:56 Transvaginal NON- US Ordered. EDMS 06:26 oxyCODONE-acetaminophen 4 pack 5 mg-325 mg 1 packets PO once; Dispense with pt, take as mm11 per instruction on package ordered. 12:11 T-Sheet-- Draft Copy was scanned into [employer] and attached to record. gb 12:11 Radiology Report was scanned into [employer] and attached to record. gb Administered Medications: 04:41 Drug: NS 0.9% 1000 ml [sodium chloride 0.9 % intravenous solution] Route: IV; Rate: tm5 bolus; Site: right hand; 05:55 Follow up: IV Status: Completed infusion; IV Intake: 1000ml tm5 04:42 Drug: Ondansetron 4 mg [ondansetron HCl 2 mg/mL intravenous solution (2 mL)] Route: tm5 IVP; Site: right hand; 05:24 Follow up: Response: Nausea is resolved; No Adverse Reaction tm5 04:42 Drug: morphine 4 mg [morphine 4 mg/mL intravenous cartridge (1 mL)] Route: IVP; Site: tm5 right hand; 05:23 Follow up: Response: No Adverse Reaction; Pain is decreased tm5 05:28 Drug: morphine 4 mg [morphine 4 mg/mL intravenous cartridge (1 mL)] Route: IVP; Site: tm5 right hand; 06:00 Follow up: Response: No Adverse Reaction; Pain is decreased tm5 06:48 Drug: oxyCODONE-acetaminophen 4 pack 1 packets [oxycodone-acetaminophen 5 mg-325 mg tm5 tablet (1 tabs)] {Co-Signature: mlc (Kim Matthews RN).} Route: PO; 06:50 Follow up: Response: Confirmed pt not driving.; Med's dispensed home tm5 Signatures: Dispatcher [employer] EDKenn Bonilla RN RN cz Barnhardt, Gloria, Reg Reg gb Mark Vargas, DO mm11 Claudia Carter, Reg Reg hs2 Twila Stevenson RN RN tm5 Kim phillips The chart was reviewed and I authenticate all verbal orders and agree with the evaluation and treatment provided.Attachments: 05:06 [facility] Payment Agreement hs2 12:11 T-Sheet-- Draft Copy Chart Complete MTDD
== END 2016-04-08 06:52 | disposition home or self-care (01) ==
LOC: M ED 02:43
DX: R10.2 Pelvic and perineal pain (principal); N88.8 Other specified noninflammatory disorders of cervix uteri; I10 Essential (primary) hypertension; E28.2 Polycystic ovarian syndrome; Z79.899 Other long term (current) drug therapy; Z87.891 Personal history of nicotine dependence
CPT/HCPCS: 36415; 76830; 76856; 80048; 80076; 81001; 82150; 83690; 84703; 85025; 87086; 87210; 87491; 87591; 93976; 96361; 96374; 96375; 96376; 99285; J2405

== ENCOUNTER 2016-04-10 04:56 | Emergency (ER) | payer OTHER ==
[2016-04-10] MEDS ORDERED: METOCLOPRAMIDE INJ 10MG/2ML VIAL (J2765) As Ordered ONE (08:09)
[2016-04-10] MEDS ORDERED: diphenhydrAMINE INJ 50MG/ML VIAL (J1200) As Ordered ONE (08:10)
[2016-04-10 08:12] LABS: BASO # 0.1 K/mm3 (0.0-0.2); BASO % 1.2 % (0.0-1.0); EOS # 0.2 K/mm3 (0.0-0.50); EOS % 1.8 % (0.0-3.0); LARGE UNSTAINED CELL # 0.2 K/mm3 (0.0-0.4); LARGE UNSTAINED CELL % 1.9 % (0.0-4.0); LYMPH # 2.4 K/mm3 (1.5-4.5); LYMPH % 24.8 % (24.0-44.0); MEAN CORPUSCULAR HEMOGLOBIN 26.9 pg (27.0-33.0); MEAN CORPUSCULAR VOLUME 81.6 fl (80.0-96.0); MONO # 0.3 K/mm3 (0.0-0.8); MONO % 3.3 % (0.0-5.0); NEUTROPHILS # 5.9 K/mm3 (1.8-7.7); PLATELET COUNT, AUTOMATED 228 k/mm3 (150-450); RED CELL DISTRIBUTION WIDTH 14.9 % (11.5-14.5); WHITE BLOOD COUNT 8.8 K/mm3 (4.0-10.0)
[2016-04-10] MEDS ORDERED: ISOVUE-370 76% 100ML VIAL (Q9967) As Ordered ONE (08:42)
[2016-04-10 09:17] LABS: ALBUMIN 3.4 GM/DL (3.2-5.2); ALBUMIN/GLOBULIN RATIO 0.83 (1.00-1.93); ALKALINE PHOSPHATASE 133 U/L (45-117); ALT/SGPT 39 U/L (12-78); AMYLASE 25 U/L (25-115); ANION GAP 9 MEQ/L (8-16); AST/SGOT 39 U/L (15-37); BILIRUBIN,DIRECT 0.1 MG/DL (0.0-0.2); BILIRUBIN,TOTAL 0.6 MG/DL (0.2-1.0); BLOOD UREA NITROGEN 15 MG/DL (7-18); CALCIUM LEVEL 8.6 MG/DL (8.5-10.1); CARBON DIOXIDE LEVEL 28 MEQ/L (21-32); CHLORIDE LEVEL 106 MEQ/L (98-107); CREATININE FOR GFR 0.65 MG/DL (0.55-1.02); GLOMERULAR FILTRATION RATE > 60.0 (>60); GLUCOSE, FASTING 109 MG/DL (70-105); POTASSIUM SERUM 3.8 MEQ/L (3.5-5.1); SODIUM LEVEL 143 MEQ/L (136-145); TOTAL PROTEIN 7.5 GM/DL (6.4-8.2)
--- NOTE | 2016-04-10 10:19 | REP ---
CT study of the abdomen and pelvis without oral but with IV contrast: History: Left lower quadrant pain. Question hernia versus diverticulitis. Comparison CT study is from January 03, 2012. CT contrast dose: 100 mL of Isovue [address] findings: Digital hypertrichologist radiograph shows a normal bowel gas pattern. The lung bases are clear. There is no evidence of pleural effusion or upper abdominal ascites. There is fatty infiltration of the liver diffusely with areas of fat sparing inferiorly in the right lobe and near the gallbladder. No focal liver mass lesion is seen. No adrenal lesion is seen. Spleen is unremarkable. Gallbladder appears slightly dilated measuring up to 8.8 cm in diameter but no stone or wall thickening is seen. The biliary tree does not appear to be dilated. The pancreas is unremarkable. No adrenal lesion is seen on either side. The kidneys enhance symmetrically are morphologically intact. There is a intrarenal calculus in the lower pole of the right kidney measuring 2 mm in diameter. This appears to be a new finding. No focal splenic lesion is seen. No retroperitoneal mass or adenopathy is seen. Normal caliber aorta is seen. The appendix is surgically absent by history. Small and large intestinal bowel loops are unremarkable. There is mild diastasis of the rectus abdominis muscles which is unchanged. No abdominal wall defect is seen. There is however a new finding of localized thickening of the rectus abdominis muscle on the left side in a fusiform tapered shape with some adjacent edema. This is compatible with a rectus sheath hematoma. It measures approximately 6.1 cm medial to lateral by 6.0 cm cranial to caudal by 2.8 cm anterior to posterior. There is a small low density area in the region of the uterine cervix consistent with Nabothian cyst. No significant uterine or ovarian abnormality is seen. Urinary bladder is intact. Bone window settings show no bony destructive lesion. Impression: 1. 6 cm left rectus sheath enlargement or mass consistent with rectus sheath hematoma. Recommend follow-up. 2. Fatty infiltration of the liver. 3. 2 mm intrarenal calculus lower pole right kidney without hydronephrosis. Signed by Jose Mcgowan MD 04/10/2016 10:26 A
--- NOTE | 2016-04-10 11:07 | EDDOCDS ---
Physician Documentation [facility] Name: Som Escobar Age: 30 yrs Sex: Female : 1985 Arrival Date: 04/10/2016 Time: 04:56 Bed TR7 Private MD: Disposition: 04/10/16 10:43 Discharged to Home/Self Care. Impression: Nontraumatic hematoma of soft tissue - LEFT rectus sheath. - Condition is Stable. - Discharge Instructions: Hematoma, [id number]. - Prescriptions for Diclofenac Sodium 75 mg Oral Tablet, Delayed Release (E.C.) - take 1 tablet by ORAL route 2 times per day; 30 tablet. Robaxin- 750 750 mg Oral Tablet - take 1 tablet by ORAL route every 6 hours As needed; 40 tablet. - Medication Reconciliation, Local Pharmacy Hours form. - Follow up: Tobias Busby MD; When: Call to arrange an appointment; Reason: Further diagnostic work-up, Recheck today's complaints, Continuance of care. - Problem is an ongoing problem. - Symptoms are unchanged. Historical: - Allergies: No known drug Allergies; - Home Meds: 1. amoxicillin 500 mg Oral cap 1 cap every 12 hours for Upper Respiratory Infection (Last dose: 04/09/2016 21:00) 2. lisinopril 20 mg Oral tab 1 tab Twice a day (Last dose: 04/09/2016 20:00) 3. metoprolol tartrate 100 mg Oral tab 1 tab once daily (Last dose: 04/09/2016 07:00) 4. Percocet 5-325 mg Oral tab (Last dose: 04/10/2016 00:01) - PMHx: Hypertension; Polycystic Ovary Disease; - PSHx: Appendectomy; ; - Social history: Smoking status: Patient states was never smoker of tobacco. No barriers to communication noted, The patient speaks fluent Macedonian, Speaks appropriately for age, Preferred Language: Macedonian. - Family history: Not pertinent. - : The pt / caregiver states he / she is not on anticoagulants. Home medication list is obtained from the patient. - Exposure Risk Screening:: None identified. 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 3 in. (160.02 cm); Pain 10/10; 07:01 BP 141 / 84; Pulse 87; Resp 16; Pulse Ox 98% on R/A; Pain 10/10; lf1 11:05 BP 150 / 100; Pulse 95; Resp 18; Temp 98; Pulse Ox 99% ; mk4 05:05 Body Mass Index 42.16 (107.95 kg, 160.02 cm) lf1 MDM: 07:08 IV Saline Lock ordered. btw 07:08 NS 0.9% 1000 ml IV at bolus once ordered. btw 07:08 Metoclopramide 20 mg IV at 80 mg/hr once over 15 mins ordered. btw 07:08 diphenhydrAMINE 50 mg IVP once ordered. btw 07:08 Amylase Ordered. EDMS 07:09 Basic Metabolic Profile Ordered. EDMS 07:09 CBC with Diff Ordered. EDMS 07:09 Lipase Ordered. EDMS 07:09 Liver Profile Ordered. EDMS 07:09 Lactic Acid (Bravo tube on ice) Ordered. EDMS 07:09 CT ABD & PELVIS: IV Contrast Only Ordered. EDMS 07:09 NOTHING BY MOUTH+DIET ordered. EDMS 08:50 CBC with Diff Reviewed. btw 09:18 Financial registration complete. lg 09:20 Basic Metabolic Profile Reviewed. btw 09:20 Lipase Reviewed. btw 09:20 Liver Profile Reviewed. btw 09:20 Amylase Reviewed. btw 09:20 Lactic Acid (Bravo tube on ice) Reviewed. btw 09:28 [facility] [place] [facility] Payment Agreement was scanned into [employer] and attached to record. lg Administered Medications: 08:19 Drug: NS 0.9% 1000 ml [sodium chloride 0.9 % intravenous solution] Route: IV; Rate: mk4 bolus; Site: left hand; 08:19 Drug: Metoclopramide 20 mg [metoclopramide 5 mg/mL injection solution] Route: IV; Rate: mk4 80 mg/hr; Infused Over: 15 mins; Site: left hand; 08:19 Drug: diphenhydrAMINE 50 mg [diphenhydramine 50 mg/mL injection solution (1 mL)] Route: mk4 IVP; Site: left hand; Signatures: Dispatcher [employer]Visiblest Rafi Medina, Reg Reg lg Cari WickRN RN lf1 Reagan Billy PA PA btw Evie Kaiser RN RN mk4 The chart was reviewed and I authenticate all verbal orders and agree with the evaluation and treatment provided.Attachments: [facility] Payment Agreement lg MTDD
--- NOTE | 2016-04-10 11:07 | EDDOCDS ---
Nurse's Notes [facility] Name: Som Escobar Age: 30 yrs Sex: Female : 1985 Arrival Date: 04/10/2016 Time: 04:56 Bed TR7 Private MD: Diagnosis: Nontraumatic hematoma of soft tissue-LEFT rectus sheath Presentation: 04/10 04:59 Presenting complaint: Patient states: Pain in lower left abdomen that began 3 days ago. lf1 Pt. reports she was seen several days ago and given pain meds and told to follow up with her PCP. Pt. reports that she saw her OBGYN (Dr. Ramirez) yesterday with no further workup. Pain is currently 10/10 without nausea or vomiting. Pt is crying in Triage area. Risk factors: the patient reports no vaginal bleeding. Adult Sepsis Screening: The patient does not have new or worsening altered mentation. Patient's respiratory rate is less than 22. Systolic blood pressure is greater than 100. Patient has a qSOFA score of 0- Negative Sepsis Screen. Suicide/Homicide risk assessment- the patient denies having any suicidal and/or homicidal ideations and does not present with any other emotional, behavioral or mental health complaints. 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 Transition of care: patient was not received from another setting of care. 04:59 Acuity: JOSE Level 3 lf1 04:59 Method Of Arrival: Walkin/Carried/Asstd lf1 Triage Assessment: 05:05 General: Appears obese, uncomfortable, Behavior is crying. Pain: Location: left lower lf1 quadrant Pain currently is 10 out of 10 on a pain scale. Quality of pain is described as sharp. HIV screening NA for this visit Offered previously. Neurological: Level of Consciousness is awake, alert, Oriented to person, place, time. EENT: No deficits noted. Cardiovascular: Chest pain is denied. Respiratory: Respiratory effort is even, unlabored, Respiratory pattern is regular, Reports cough that is. GI: Denies nausea, vomiting. : Denies burning with urination, vaginal bleeding. Derm: Skin is normal. Injury Description: No known injury. 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 amoxicillin 500 mg Oral cap 1 cap every 12 hours for Upper Respiratory Infection (Last dose: 04/09/2016 21:00) 2. lisinopril 20 mg Oral tab 1 tab Twice a day (Last dose: 04/09/2016 20:00) 3. metoprolol tartrate 100 mg Oral tab 1 tab once daily (Last dose: 04/09/2016 07:00) 4. Percocet 5-325 mg Oral tab (Last dose: 04/10/2016 00:01) - PMHx: Hypertension; Polycystic Ovary Disease; - PSHx: Appendectomy; ; - Social history: Smoking status: Patient states was never smoker of tobacco. No barriers to communication noted, The patient speaks fluent Upper Sorbian, Speaks appropriately for age, Preferred Language: Upper Sorbian. - Family history: Not pertinent. - : The pt / caregiver states he / she is not on anticoagulants. Home medication list is obtained from the patient. - Exposure Risk Screening:: None identified. Screenin:11 Screening information is obtained from the patient. Fall risk: No risks identified. lf1 Assistance ADL's: requires no assistance with activities of daily living. Abuse/DV Screen: The patient / caregiver reports he/she is: not in a situation that causes fear, pain or injury. Nutritional screening: No deficits noted. Advance Directives: Currently, there is no health care proxy. There is no active DNR order. There is no living will. There is no Power of Lab Head. home support is adequate. Assessment: 07:01 Adult Sepsis Screening: The patient does not have new or worsening altered mentation. lf1 Patient's respiratory rate is less than 22. Systolic blood pressure is greater than 100. Patient has a qSOFA score of 0- Negative Sepsis Screen. General: Appears obese, Behavior is cooperative. Pain: Location: left lower quadrant Pain currently is 10 out of 10 on a pain scale. Neurological: Level of Consciousness is awake, alert. EENT: No deficits noted. Respiratory: Respiratory effort is even, unlabored. GI: Abdomen is obese, Bowel sounds present X 4 quads. Abd is soft Abd is tender to palpation in left lower quadrant. Derm: Skin is normal. 07:29 General: Appears obese, uncomfortable, Behavior is appropriate for age, cooperative. nn1 Pain: Location: left lower quadrant Pain currently is 10 out of 10 on a pain scale. Quality of pain is described as burning, sharp, Pain began 2-3 days ago. Neurological: Level of Consciousness is awake, alert. GI: Abdomen is obese, Bowel sounds present X 4 quads. Abd is soft X 4 quads Abd is tender to palpation in left lower quadrant Reports nausea, reports diarrhea on Thursday, has not had BM since. Derm: Skin is normal. 08:33 General: Appears uncomfortable. mk4 09:21 General: Appears in no apparent distress, obese, Behavior is appropriate for age. Pain: jjr Location: left lower quadrant Pain currently is 5 out of 10 on a pain scale. Quality of pain is described as sharp, Is continuous Aggravated by "coughing". Respiratory: Airway is patent Respiratory effort is even, unlabored, Respiratory pattern is regular. Derm: Skin is pink, warm & dry. 09:41 General: Appears uncomfortable, states no relief from pain. mk4 10:18 General: Appears to be sleeping. jjr 10:56 Reassessment: Patient states feeling better. mk4 11:06 Reassessment: Patient states symptoms have not improved. 4 Vital Signs: 05:05 BP 135 / 89 RA; Pulse 79; Resp 18; Temp 98.0(TE); Pulse Ox 97% ; Weight 107.95 kg; lf1 Height 5 ft. 3 in. (160.02 cm); Pain 10/10; 07:01 BP 141 / 84; Pulse 87; Resp 16; Pulse Ox 98% on R/A; Pain 10/10; lf1 11:05 BP 150 / 100; Pulse 95; Resp 18; Temp 98; Pulse Ox 99% ; mk4 05:05 Body Mass Index 42.16 (107.95 kg, 160.02 cm) 1 Vitals: 05:05 Log In Time: April 10, 2016 at 04:57. 1 ED Course: 04:57 Patient visited by Claudia Carter Reg. hs2 04:57 Patient moved to Waiting hs2 05:03 Triage Initiated lf1 05:11 Patient visited by Cari Wick RN. lf1 06:54 Patient moved to I3 / M3 lf1 07:01 Reagan Billy PA is PHCP. btw 07:01 Gianna Schmidt MD is Attending Physician. btw 07:01 Patient visited by Reagan Billy PA. btw 07:01 The patient / caregiver is instructed regarding the plan of care and ED course. Door lf1 closed. 07:05 Patient visited by Cari Wick RN. lf1 07:52 Missed attempts: 20 gauge X 2 in right antecubital area, in left antecubital area. nn1 08:01 Inserted saline lock: 22 gauge in left hand and blood collected. The patient tolerated mlb1 the procedure well. Labs drawn. (by ED staff). Sent per order to lab. 08:02 Amylase Sent. mlb1 08:02 Basic Metabolic Profile Sent. mlb1 08:02 CBC with Diff Sent. mlb1 08:02 Lipase Sent. mlb1 08:03 Liver Profile Sent. mlb1 08:03 Lactic Acid (Bravo tube on ice) Sent. mlb1 08:08 Patient visited by Evie Kaiser RN. mk4 08:33 No procedures done that require assistance. mk4 08:38 Patient visited by Evie Kaiser RN. mk4 09:11 Patient visited by Jam Flores PCA. jlf 09:22 Patient visited by Monique Wood RN. jjr 09:26 Patient name changed from Som\\S\\Mily\\S\\Escobar\\S\\ to Som\\S\\ \\S\\Escobar. EDMS 09:28 [facility] Payment Agreement was scanned into [employer] and attached to record. lg 09:[address] mk4 09:39 Patient moved to I3 / M3 mk4 09:51 Patient visited by Jam Flores PCA. jlf 10:18 Patient visited by Monique Wood RN. jjr 10:33 CT ABD & PELVIS: IV Contrast Only Returned. EDMS 10:42 Tobias Busby MD is Referral Physician. btw 11:05 Patient moved to TR7 mk4 11:05 Discontinued IV lock bleeding controlled, pressure dressing applied. mk4 Administered Medications: 08:19 Drug: NS 0.9% 1000 ml [sodium chloride 0.9 % intravenous solution] Route: IV; Rate: mk4 bolus; Site: left hand; 08:19 Drug: Metoclopramide 20 mg [metoclopramide 5 mg/mL injection solution] Route: IV; Rate: mk4 80 mg/hr; Infused Over: 15 mins; Site: left hand; 08:19 Drug: diphenhydrAMINE 50 mg [diphenhydramine 50 mg/mL injection solution (1 mL)] Route: mk4 IVP; Site: left hand; Order Results: Lab Order: Amylase; SPEC'M 04/10/16 07:59 Test: AMYLASE; Value: 25; Range: 25-115; Units: U/L; Status: F Lab Order: Basic Metabolic Profile; SPEC'M 04/10/16 07:59 Test: GLUCOSE, FASTING; Value: 109; Range: 70-105; Abnormal: Above high normal; Units: MG/DL; Status: F Test: BLOOD UREA NITROGEN; Value: 15; Range: 7-18; Units: MG/DL; Status: F Test: CREATININE FOR GFR; Value: 0.65; Range: 0.55-1.02; Units: MG/DL; Status: F Test: GLOMERULAR FILTRATION RATE; Value: > 60.0; Range: >60; Status: F Test: SODIUM LEVEL; Value: 143; Range: 136-145; Units: MEQ/L; Status: F Test: POTASSIUM SERUM; Value: 3.8; Range: 3.5-5.1; Units: MEQ/L; Status: F Test: CHLORIDE LEVEL; Value: 106; Range: 98-107; Units: MEQ/L; Status: F Test: CARBON DIOXIDE LEVEL; Value: 28; Range: 21-32; Units: MEQ/L; Status: F Test: ANION GAP; Value: 9; Range: 8-16; Units: MEQ/L; Status: F Test: CALCIUM LEVEL; Value: 8.6; Range: 8.5-10.1; Units: MG/DL; Status: F Test Note: ; Units are mL/min/1.73 m2 Chronic Kidney Disease Staging per NKF: Stage I & II GFR >=60 Normal to Mildly Decreased Stage III GFR 30-59 Moderately Decreased Stage IV GFR 15-29 Severely Decreased Stage V GFR <15 Very Little GFR Left ESRD GFR <15 on THERAPY TEACHER Lab Order: CBC with Diff; SPEC'M 04/10/16 07:59 Test: WHITE BLOOD COUNT; Value: 8.8; Range: 4.0-10.0; Units: K/mm3; Status: F Test: RED BLOOD COUNT; Value: 4.65; Range: 4.00-5.40; Units: M/mm3; Status: F Test: HEMOGLOBIN; Value: 12.5; Range: 12.0-16.0; Units: g/dl; Status: F Test: HEMATOCRIT; Value: 37.9; Range: 36.0-47.0; Units: %; Status: F Test: MEAN CORPUSCULAR VOLUME; Value: 81.6; Range: 80.0-96.0; Units: fl; Status: F Test: MEAN CORPUSCULAR HEMOGLOBIN; Value: 26.9; Range: 27.0-33.0; Abnormal: Below low normal; Units: pg; Status: F Test: MEAN CORPUSCULAR HGB CONC; Value: 33.0; Range: 32.0-36.5; Units: g/dl; Status: F Test: RED CELL DISTRIBUTION WIDTH; Value: 14.9; Range: 11.5-14.5; Abnormal: Above high normal; Units: %; Status: F Test: PLATELET COUNT, AUTOMATED; Value: 228; Range: 150-450; Units: k/mm3; Status: F Test: NEUTROPHILS %; Value: 67.0; Range: 36.0-66.0; Abnormal: Above high normal; Units: %; Status: F Test: LYMPH %; Value: 24.8; Range: 24.0-44.0; Units: %; Status: F Test: MONO %; Value: 3.3; Range: 0.0-5.0; Units: %; Status: F Test: EOS %; Value: 1.8; Range: 0.0-3.0; Units: %; Status: F Test: BASO %; Value: 1.2; Range: 0.0-1.0; Abnormal: Above high normal; Units: %; Status: F Test: LARGE UNSTAINED CELL %; Value: 1.9; Range: 0.0-4.0; Units: %; Status: F Test: NEUTROPHILS #; Value: 5.9; Range: 1.8-7.7; Units: K/mm3; Status: F Test: LYMPH #; Value: 2.4; Range: 1.5-4.5; Units: K/mm3; Status: F Test: MONO #; Value: 0.3; Range: 0.0-0.8; Units: K/mm3; Status: F Test: EOS #; Value: 0.2; Range: 0.0-0.50; Units: K/mm3; Status: F Test: BASO #; Value: 0.1; Range: 0.0-0.2; Units: K/mm3; Status: F Test: LARGE UNSTAINED CELL #; Value: 0.2; Range: 0.0-0.4; Units: K/mm3; Status: F Lab Order: Lipase; SPEC'M 04/10/16 07:59 Test: LIPASE; Value: 70; Range: 73-393; Abnormal: Below low normal; Units: U/L; Status: F Lab Order: Liver Profile; SPEC'M 04/10/16 07:59 Test: AST/SGOT; Value: 39; Range: 15-37; Abnormal: Above high normal; Units: U/L; Status: F Test: ALT/SGPT; Value: 39; Range: 12-78; Units: U/L; Status: F Test: ALKALINE PHOSPHATASE; Value: 133; Range: 45-117; Abnormal: Above high normal; Units: U/L; Status: F Test: BILIRUBIN,TOTAL; Value: 0.6; Range: 0.2-1.0; Abnormal: Delta; Units: MG/DL; Status: F Test: BILIRUBIN,DIRECT; Value: 0.1; Range: 0.0-0.2; Units: MG/DL; Status: F Test: TOTAL PROTEIN; Value: 7.5; Range: 6.4-8.2; Units: GM/DL; Status: F Test: ALBUMIN; Value: 3.4; Range: 3.2-5.2; Units: GM/DL; Status: F Test: ALBUMIN/GLOBULIN RATIO; Value: 0.83; Range: 1.00-1.93; Abnormal: Below low normal; Status: F Lab Order: Lactic Acid (Bravo tube on ice); SPEC'M 04/10/16 07:59 Test: LACTIC ACID LEVEL, LACTATE; Value: 1.1; Range: 0.4-2.0; Units: MMOL/L; Status: F Radiology Order: CT ABD & PELVIS: IV Contrast Only Test: CT ABD & PELVIS: IV Contrast Only REASON FOR EXAMINATION: ? hernia;Diverticulitis/LLQ Pain; CT study of the abdomen and pelvis without oral but with IV contrast:; ; History: Left lower quadrant pain. Question hernia versus diverticulitis.; Comparison CT study is from January 03, 2012.; ; CT contrast dose: 100 mL of Isovue 370 is administered intravenously.; ; CT findings: Digital party plan sales unit advisor radiograph shows a normal bowel gas pattern. The; lung bases are clear. There is no evidence of pleural effusion or upper; abdominal ascites. There is fatty infiltration of the liver diffusely with areas; of fat sparing inferiorly in the right lobe and near the gallbladder. No focal; liver mass lesion is seen. No adrenal lesion is seen. Spleen is unremarkable.; Gallbladder appears slightly dilated measuring up to 8.8 cm in diameter but no; stone or wall thickening is seen. The biliary tree does not appear to be; dilated. The pancreas is unremarkable. No adrenal lesion is seen on either; side. The kidneys enhance symmetrically are morphologically intact. There is a; intrarenal calculus in the lower pole of the right kidney measuring 2 mm in; diameter. This appears to be a new finding. No focal splenic lesion is seen.; No retroperitoneal mass or adenopathy is seen. Normal caliber aorta is seen.; The appendix is surgically absent by history. Small and large intestinal bowel; loops are unremarkable. There is mild diastasis of the rectus abdominis muscles; which is unchanged. No abdominal wall defect is seen. There is however a new; finding of localized thickening of the rectus abdominis muscle on the left side; in a fusiform tapered shape with some adjacent edema. This is compatible with a; rectus sheath hematoma. It measures approximately 6.1 cm medial to lateral by; 6.0 cm cranial to caudal by 2.8 cm anterior to posterior.; ; There is a small low density area in the region of the uterine cervix consistent; with Nabothian cyst. No significant uterine or ovarian abnormality is seen.; Urinary bladder is intact. Bone window settings show no bony destructive; lesion.; ; Impression:; ; 1. 6 cm left rectus sheath enlargement or mass consistent with rectus sheath; hematoma. Recommend follow-up.; ; 2. Fatty infiltration of the liver.; ; 3. 2 mm intrarenal calculus lower pole right kidney without hydronephrosis.; ; ; ; Unreviewed; Outcome: 10:43 Discharge ordered by Provider. btw 11:06 Patient left the ED. mk4 Signatures: Dispatcher [employer] EDMS Rafi Huerta, Reg Reg lg Taco Simmosn RN RN mlb1 Cari Wick,RN RN lf1 Monique Wood, RN RN Reagan Waters PA PA btw Evie Kaiser RN RN mk4 Jam Flores, CAMP MANAGER CAMP MANAGER Elba Boykin,RN RN nn1 Claudia Carter, Reg Reg hs2 MTDD
--- NOTE | 2016-04-12 12:07 | EDDOCDS ---
Physician Documentation [facility] Name: Som Escobar Age: 30 yrs Sex: Female : 1985 Arrival Date: 04/10/2016 Time: 04:56 Bed TR7 Private MD: Disposition: 04/10/16 10:43 Discharged to Home/Self Care. Impression: Nontraumatic hematoma of soft tissue - LEFT rectus sheath. - Condition is Stable. - Discharge Instructions: Hematoma, [id number]. - Prescriptions for Diclofenac Sodium 75 mg Oral Tablet, Delayed Release (E.C.) - take 1 tablet by ORAL route 2 times per day; 30 tablet. Robaxin- 750 750 mg Oral Tablet - take 1 tablet by ORAL route every 6 hours As needed; 40 tablet. - Medication Reconciliation, Local Pharmacy Hours form. - Follow up: Tobias Busby MD; When: Call to arrange an appointment; Reason: Further diagnostic work-up, Recheck today's complaints, Continuance of care. - Problem is an ongoing problem. - Symptoms are unchanged. Historical: - Allergies: No known drug Allergies; - Home Meds: 1. amoxicillin 500 mg Oral cap 1 cap every 12 hours for Upper Respiratory Infection (Last dose: 04/09/2016 21:00) 2. lisinopril 20 mg Oral tab 1 tab Twice a day (Last dose: 04/09/2016 20:00) 3. metoprolol tartrate 100 mg Oral tab 1 tab once daily (Last dose: 04/09/2016 07:00) 4. Percocet 5-325 mg Oral tab (Last dose: 04/10/2016 00:01) - PMHx: Hypertension; Polycystic Ovary Disease; - PSHx: Appendectomy; ; - Social history: Smoking status: Patient states was never smoker of tobacco. No barriers to communication noted, The patient speaks fluent Belgian, Speaks appropriately for age, Preferred Language: Belgian. - Family history: Not pertinent. - : The pt / caregiver states he / she is not on anticoagulants. Home medication list is obtained from the patient. - Exposure Risk Screening:: None identified. WELLNESS NURSE: 04/10 05:05 3, 2, Living 1, LMP 01/04/2016 lf1 Vital Signs: 05:05 BP 135 / 89 RA; Pulse 79; Resp 18; Temp 98.0(TE); Pulse Ox 97% ; Weight 107.95 kg / lf1 237.99 lbs; Height 5 ft. 3 in. (160.02 cm); Pain 10/10; 07:01 BP 141 / 84; Pulse 87; Resp 16; Pulse Ox 98% on R/A; Pain 10/10; lf1 11:05 BP 150 / 100; Pulse 95; Resp 18; Temp 98; Pulse Ox 99% ; mk4 05:05 Body Mass Index 42.16 (107.95 kg, 160.02 cm) lf1 MDM: 07:08 IV Saline Lock ordered. btw 07:08 NS 0.9% 1000 ml IV at bolus once ordered. btw 07:08 Metoclopramide 20 mg IV at 80 mg/hr once over 15 mins ordered. btw 07:08 diphenhydrAMINE 50 mg IVP once ordered. btw 07:08 Amylase Ordered. EDMS 07:09 Basic Metabolic Profile Ordered. EDMS 07:09 CBC with Diff Ordered. EDMS 07:09 Lipase Ordered. EDMS 07:09 Liver Profile Ordered. EDMS 07:09 Lactic Acid (Bravo tube on ice) Ordered. EDMS 07:09 CT ABD & PELVIS: IV Contrast Only Ordered. EDMS 07:09 NOTHING BY MOUTH+DIET ordered. EDMS 08:50 CBC with Diff Reviewed. btw 09:18 Financial registration complete. lg 09:20 Basic Metabolic Profile Reviewed. btw 09:20 Lipase Reviewed. btw 09:20 Liver Profile Reviewed. btw 09:20 Amylase Reviewed. btw 09:20 Lactic Acid (Bravo tube on ice) Reviewed. btw 09:28 [facility] Payment Agreement was scanned into [employer] and attached to record. lg 13:23 T-Sheet-- Draft Copy was scanned into [employer] and attached to record. gb 04/11 14:17 ED course: dr busby faxed forml reaport of ct abd/p for fu mlg. ml Administered Medications: 04/10 08:19 Drug: NS 0.9% 1000 ml [sodium chloride 0.9 % intravenous solution] Route: IV; Rate: mk4 bolus; Site: left hand; 08:19 Drug: Metoclopramide 20 mg [metoclopramide 5 mg/mL injection solution] Route: IV; Rate: mk4 80 mg/hr; Infused Over: 15 mins; Site: left hand; 08:19 Drug: diphenhydrAMINE 50 mg [diphenhydramine 50 mg/mL injection solution (1 mL)] Route: mk4 IVP; Site: left hand; Signatures: Dispatcher [employer] Jhoan Garcia MD MD ml Madeline Brandon, Reg Reg gb Rafi Huerta, Reg Reg lg Cari Wick RN RN lf1 Reagan Billy PA PA btw King, Margaret RN RN mk4 The chart was reviewed and I authenticate all verbal orders and agree with the evaluation and treatment provided.Attachments: 09:28 [facility] Payment Agreement lg 13:23 T-Sheet-- Draft Copy gb Chart Complete MTDD
--- NOTE | 2016-04-12 12:07 | EDDOCDS ---
Nurse's Notes [facility] Name: Som Escobar Age: 30 yrs Sex: Female : 1985 Arrival Date: 04/10/2016 Time: 04:56 Bed TR7 Private MD: Diagnosis: Nontraumatic hematoma of soft tissue-LEFT rectus sheath Presentation: 04/10 04:59 Presenting complaint: Patient states: Pain in lower left abdomen that began 3 days ago. lf1 Pt. reports she was seen several days ago and given pain meds and told to follow up with her PCP. Pt. reports that she saw her OBGYN (Dr. Ramirez) yesterday with no further workup. Pain is currently 10/10 without nausea or vomiting. Pt is crying in Triage area. Risk factors: the patient reports no vaginal bleeding. Adult Sepsis Screening: The patient does not have new or worsening altered mentation. Patient's respiratory rate is less than 22. Systolic blood pressure is greater than 100. Patient has a qSOFA score of 0- Negative Sepsis Screen. Suicide/Homicide risk assessment- the patient denies having any suicidal and/or homicidal ideations and does not present with any other emotional, behavioral or mental health complaints. Status: Patient is not a surgical services asst or dependent. Transition of care: patient was not received from another setting of care. 04:59 Acuity: JOSE Level 3 lf1 04:59 Method Of Arrival: Walkin/Carried/Asstd lf1 Triage Assessment: 05:05 General: Appears obese, uncomfortable, Behavior is crying. Pain: Location: left lower lf1 quadrant Pain currently is 10 out of 10 on a pain scale. Quality of pain is described as sharp. HIV screening NA for this visit Offered previously. Neurological: Level of Consciousness is awake, alert, Oriented to person, place, time. EENT: No deficits noted. Cardiovascular: Chest pain is denied. Respiratory: Respiratory effort is even, unlabored, Respiratory pattern is regular, Reports cough that is. GI: Denies nausea, vomiting. : Denies burning with urination, vaginal bleeding. Derm: Skin is normal. Injury Description: No known injury. 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 amoxicillin 500 mg Oral cap 1 cap every 12 hours for Upper Respiratory Infection (Last dose: 04/09/2016 21:00) 2. lisinopril 20 mg Oral tab 1 tab Twice a day (Last dose: 04/09/2016 20:00) 3. metoprolol tartrate 100 mg Oral tab 1 tab once daily (Last dose: 04/09/2016 07:00) 4. Percocet 5-325 mg Oral tab (Last dose: 04/10/2016 00:01) - PMHx: Hypertension; Polycystic Ovary Disease; - PSHx: Appendectomy; ; - Social history: Smoking status: Patient states was never smoker of tobacco. No barriers to communication noted, The patient speaks fluent Uzbek, Speaks appropriately for age, Preferred Language: Uzbek. - Family history: Not pertinent. - : The pt / caregiver states he / she is not on anticoagulants. Home medication list is obtained from the patient. - Exposure Risk Screening:: None identified. Screenin:11 Screening information is obtained from the patient. Fall risk: No risks identified. lf1 Assistance ADL's: requires no assistance with activities of daily living. Abuse/DV Screen: The patient / caregiver reports he/she is: not in a situation that causes fear, pain or injury. Nutritional screening: No deficits noted. Advance Directives: Currently, there is no health care proxy. There is no active DNR order. There is no living will. There is no Power of Plant Changer. home support is adequate. Assessment: 07:01 Adult Sepsis Screening: The patient does not have new or worsening altered mentation. lf1 Patient's respiratory rate is less than 22. Systolic blood pressure is greater than 100. Patient has a qSOFA score of 0- Negative Sepsis Screen. General: Appears obese, Behavior is cooperative. Pain: Location: left lower quadrant Pain currently is 10 out of 10 on a pain scale. Neurological: Level of Consciousness is awake, alert. EENT: No deficits noted. Respiratory: Respiratory effort is even, unlabored. GI: Abdomen is obese, Bowel sounds present X 4 quads. Abd is soft Abd is tender to palpation in left lower quadrant. Derm: Skin is normal. 07:29 General: Appears obese, uncomfortable, Behavior is appropriate for age, cooperative. nn1 Pain: Location: left lower quadrant Pain currently is 10 out of 10 on a pain scale. Quality of pain is described as burning, sharp, Pain began 2-3 days ago. Neurological: Level of Consciousness is awake, alert. GI: Abdomen is obese, Bowel sounds present X 4 quads. Abd is soft X 4 quads Abd is tender to palpation in left lower quadrant Reports nausea, reports diarrhea on Thursday, has not had BM since. Derm: Skin is normal. 08:33 General: Appears uncomfortable. mk4 09:21 General: Appears in no apparent distress, obese, Behavior is appropriate for age. Pain: jjr Location: left lower quadrant Pain currently is 5 out of 10 on a pain scale. Quality of pain is described as sharp, Is continuous Aggravated by "coughing". Respiratory: Airway is patent Respiratory effort is even, unlabored, Respiratory pattern is regular. Derm: Skin is pink, warm & dry. 09:41 General: Appears uncomfortable, states no relief from pain. mk4 10:18 General: Appears to be sleeping. jjr 10:56 Reassessment: Patient states feeling better. mk4 11:06 Reassessment: Patient states symptoms have not improved. 4 Vital Signs: 05:05 BP 135 / 89 RA; Pulse 79; Resp 18; Temp 98.0(TE); Pulse Ox 97% ; Weight 107.95 kg; lf1 Height 5 ft. 3 in. (160.02 cm); Pain 10/10; 07:01 BP 141 / 84; Pulse 87; Resp 16; Pulse Ox 98% on R/A; Pain 10/10; lf1 11:05 BP 150 / 100; Pulse 95; Resp 18; Temp 98; Pulse Ox 99% ; mk4 05:05 Body Mass Index 42.16 (107.95 kg, 160.02 cm) 1 Vitals: 05:05 Log In Time: April 10, 2016 at 04:57. 1 ED Course: 04:57 Patient visited by Claudia Carter Reg. hs2 04:57 Patient moved to Waiting hs2 05:03 Triage Initiated lf1 05:11 Patient visited by Cari Wick RN. lf1 06:54 Patient moved to I3 / M3 lf1 07:01 Reagan Billy PA is PHCP. btw 07:01 Gianna Schmidt MD is Attending Physician. btw 07:01 Patient visited by Reagan Billy PA. btw 07:01 The patient / caregiver is instructed regarding the plan of care and ED course. Door lf1 closed. 07:05 Patient visited by Cari Wick RN. lf1 07:52 Missed attempts: 20 gauge X 2 in right antecubital area, in left antecubital area. nn1 08:01 Inserted saline lock: 22 gauge in left hand and blood collected. The patient tolerated mlb1 the procedure well. Labs drawn. (by ED staff). Sent per order to lab. 08:02 Amylase Sent. mlb1 08:02 Basic Metabolic Profile Sent. mlb1 08:02 CBC with Diff Sent. mlb1 08:02 Lipase Sent. mlb1 08:03 Liver Profile Sent. mlb1 08:03 Lactic Acid (Bravo tube on ice) Sent. mlb1 08:08 Patient visited by Evie Kaiser RN. mk4 08:33 No procedures done that require assistance. mk4 08:38 Patient visited by Evie Kaiser RN. mk4 09:11 Patient visited by Jam Flores PCA. jlf 09:22 Patient visited by Monique Wood RN. jjr 09:26 Patient name changed from Som\\S\\Mily\\S\\Escobar\\S\\ to Som\\S\\ \\S\\Escobar. EDMS 09:28 [facility] Payment Agreement was scanned into [employer] and attached to record. lg 09:[address] mk4 09:39 Patient moved to I3 / M3 mk4 09:51 Patient visited by Jam Flores PCA. jlf 10:18 Patient visited by Monique Wood RN. jjr 10:33 CT ABD & PELVIS: IV Contrast Only Returned. EDMS 10:42 Tobias Busby MD is Referral Physician. btw 11:05 Patient moved to TR7 mk4 11:05 Discontinued IV lock bleeding controlled, pressure dressing applied. mk4 13:23 T-Sheet-- Draft Copy was scanned into [employer] and attached to record. gb Administered Medications: 08:19 Drug: NS 0.9% 1000 ml [sodium chloride 0.9 % intravenous solution] Route: IV; Rate: mk4 bolus; Site: left hand; 08:19 Drug: Metoclopramide 20 mg [metoclopramide 5 mg/mL injection solution] Route: IV; Rate: mk4 80 mg/hr; Infused Over: 15 mins; Site: left hand; : Drug: diphenhydrAMINE 50 mg [diphenhydramine 50 mg/mL injection solution (1 mL)] Route: mk4 IVP; Site: left hand; Order Results: Lab Order: Amylase; SPEC'M 04/10/16 07:59 Test: AMYLASE; Value: 25; Range: 25-115; Units: U/L; Status: F Lab Order: Basic Metabolic Profile; SPEC'M 04/10/16 07:59 Test: GLUCOSE, FASTING; Value: 109; Range: 70-105; Abnormal: Above high normal; Units: MG/DL; Status: F Test: BLOOD UREA NITROGEN; Value: 15; Range: 7-18; Units: MG/DL; Status: F Test: CREATININE FOR GFR; Value: 0.65; Range: 0.55-1.02; Units: MG/DL; Status: F Test: GLOMERULAR FILTRATION RATE; Value: > 60.0; Range: >60; Status: F Test: SODIUM LEVEL; Value: 143; Range: 136-145; Units: MEQ/L; Status: F Test: POTASSIUM SERUM; Value: 3.8; Range: 3.5-5.1; Units: MEQ/L; Status: F Test: CHLORIDE LEVEL; Value: 106; Range: 98-107; Units: MEQ/L; Status: F Test: CARBON DIOXIDE LEVEL; Value: 28; Range: 21-32; Units: MEQ/L; Status: F Test: ANION GAP; Value: 9; Range: 8-16; Units: MEQ/L; Status: F Test: CALCIUM LEVEL; Value: 8.6; Range: 8.5-10.1; Units: MG/DL; Status: F Test Note: ; Units are mL/min/1.73 m2 Chronic Kidney Disease Staging per NKF: Stage I & II GFR >=60 Normal to Mildly Decreased Stage III GFR 30-59 Moderately Decreased Stage IV GFR 15-29 Severely Decreased Stage V GFR <15 Very Little GFR Left ESRD GFR <15 on AMMUNITION ASSEMBLY II LABORER Lab Order: CBC with Diff; SPEC'M 04/10/16 07:59 Test: WHITE BLOOD COUNT; Value: 8.8; Range: 4.0-10.0; Units: K/mm3; Status: F Test: RED BLOOD COUNT; Value: 4.65; Range: 4.00-5.40; Units: M/mm3; Status: F Test: HEMOGLOBIN; Value: 12.5; Range: 12.0-16.0; Units: g/dl; Status: F Test: HEMATOCRIT; Value: 37.9; Range: 36.0-47.0; Units: %; Status: F Test: MEAN CORPUSCULAR VOLUME; Value: 81.6; Range: 80.0-96.0; Units: fl; Status: F Test: MEAN CORPUSCULAR HEMOGLOBIN; Value: 26.9; Range: 27.0-33.0; Abnormal: Below low normal; Units: pg; Status: F Test: MEAN CORPUSCULAR HGB CONC; Value: 33.0; Range: 32.0-36.5; Units: g/dl; Status: F Test: RED CELL DISTRIBUTION WIDTH; Value: 14.9; Range: 11.5-14.5; Abnormal: Above high normal; Units: %; Status: F Test: PLATELET COUNT, AUTOMATED; Value: 228; Range: 150-450; Units: k/mm3; Status: F Test: NEUTROPHILS %; Value: 67.0; Range: 36.0-66.0; Abnormal: Above high normal; Units: %; Status: F Test: LYMPH %; Value: 24.8; Range: 24.0-44.0; Units: %; Status: F Test: MONO %; Value: 3.3; Range: 0.0-5.0; Units: %; Status: F Test: EOS %; Value: 1.8; Range: 0.0-3.0; Units: %; Status: F Test: BASO %; Value: 1.2; Range: 0.0-1.0; Abnormal: Above high normal; Units: %; Status: F Test: LARGE UNSTAINED CELL %; Value: 1.9; Range: 0.0-4.0; Units: %; Status: F Test: NEUTROPHILS #; Value: 5.9; Range: 1.8-7.7; Units: K/mm3; Status: F Test: LYMPH #; Value: 2.4; Range: 1.5-4.5; Units: K/mm3; Status: F Test: MONO #; Value: 0.3; Range: 0.0-0.8; Units: K/mm3; Status: F Test: EOS #; Value: 0.2; Range: 0.0-0.50; Units: K/mm3; Status: F Test: BASO #; Value: 0.1; Range: 0.0-0.2; Units: K/mm3; Status: F Test: LARGE UNSTAINED CELL #; Value: 0.2; Range: 0.0-0.4; Units: K/mm3; Status: F Lab Order: Lipase; SPEC'M 04/10/16 07:59 Test: LIPASE; Value: 70; Range: 73-393; Abnormal: Below low normal; Units: U/L; Status: F Lab Order: Liver Profile; SPEC'M 04/10/16 07:59 Test: AST/SGOT; Value: 39; Range: 15-37; Abnormal: Above high normal; Units: U/L; Status: F Test: ALT/SGPT; Value: 39; Range: 12-78; Units: U/L; Status: F Test: ALKALINE PHOSPHATASE; Value: 133; Range: 45-117; Abnormal: Above high normal; Units: U/L; Status: F Test: BILIRUBIN,TOTAL; Value: 0.6; Range: 0.2-1.0; Abnormal: Delta; Units: MG/DL; Status: F Test: BILIRUBIN,DIRECT; Value: 0.1; Range: 0.0-0.2; Units: MG/DL; Status: F Test: TOTAL PROTEIN; Value: 7.5; Range: 6.4-8.2; Units: GM/DL; Status: F Test: ALBUMIN; Value: 3.4; Range: 3.2-5.2; Units: GM/DL; Status: F Test: ALBUMIN/GLOBULIN RATIO; Value: 0.83; Range: 1.00-1.93; Abnormal: Below low normal; Status: F Lab Order: Lactic Acid (Bravo tube on ice); SPEC'M 04/10/16 07:59 Test: LACTIC ACID LEVEL, LACTATE; Value: 1.1; Range: 0.4-2.0; Units: MMOL/L; Status: F Radiology Order: CT ABD & PELVIS: IV Contrast Only Test: CT ABD & PELVIS: IV Contrast Only REASON FOR EXAMINATION: ? hernia;Diverticulitis/LLQ Pain; CT study of the abdomen and pelvis without oral but with IV contrast:; ; History: Left lower quadrant pain. Question hernia versus diverticulitis.; Comparison CT study is from January 03, 2012.; ; CT contrast dose: 100 mL of Isovue 370 is administered intravenously.; ; CT findings: Digital supervisor plating and point assembly radiograph shows a normal bowel gas pattern. The; lung bases are clear. There is no evidence of pleural effusion or upper; abdominal ascites. There is fatty infiltration of the liver diffusely with areas; of fat sparing inferiorly in the right lobe and near the gallbladder. No focal; liver mass lesion is seen. No adrenal lesion is seen. Spleen is unremarkable.; Gallbladder appears slightly dilated measuring up to 8.8 cm in diameter but no; stone or wall thickening is seen. The biliary tree does not appear to be; dilated. The pancreas is unremarkable. No adrenal lesion is seen on either; side. The kidneys enhance symmetrically are morphologically intact. There is a; intrarenal calculus in the lower pole of the right kidney measuring 2 mm in; diameter. This appears to be a new finding. No focal splenic lesion is seen.; No retroperitoneal mass or adenopathy is seen. Normal caliber aorta is seen.; The appendix is surgically absent by history. Small and large intestinal bowel; loops are unremarkable. There is mild diastasis of the rectus abdominis muscles; which is unchanged. No abdominal wall defect is seen. There is however a new; finding of localized thickening of the rectus abdominis muscle on the left side; in a fusiform tapered shape with some adjacent edema. This is compatible with a; rectus sheath hematoma. It measures approximately 6.1 cm medial to lateral by; 6.0 cm cranial to caudal by 2.8 cm anterior to posterior.; ; There is a small low density area in the region of the uterine cervix consistent; with Nabothian cyst. No significant uterine or ovarian abnormality is seen.; Urinary bladder is intact. Bone window settings show no bony destructive; lesion.; ; Impression:; ; 1. 6 cm left rectus sheath enlargement or mass consistent with rectus sheath; hematoma. Recommend follow-up.; ; 2. Fatty infiltration of the liver.; ; 3. 2 mm intrarenal calculus lower pole right kidney without hydronephrosis.; ; ; Signed by; Jose Mcgowan MD 04/10/2016 10:26 A; Outcome: 10:43 Discharge ordered by Provider. btw 11:06 Patient left the ED. mk4 Signatures: Dispatcher [employer] EDMS Madeline Brandon, Reg Reg gb Rfai Huerta, Reg Reg lg Taco Simmons RN RN mlb1 Cari WickRN RN lf1 Monique Wood, RN RN Reagan Waters PA PA btw Evie Kaiser, RN RN mk4 Jam Flores, PAINTINGS CONSERVATOR PAINTINGS CONSERVATOR Elba Boykin,RN RN nn1 Claudia Carter, Reg Reg hs2 Chart Complete MTDD
--- NOTE | 2016-04-12 12:07 | EDDOCDS ---
Physician Documentation [facility] Name: Som Escobar Age: 30 yrs Sex: Female : 1985 Arrival Date: 04/10/2016 Time: 04:56 Bed TR7 Private MD: Disposition: 04/10/16 10:43 Discharged to Home/Self Care. Impression: Nontraumatic hematoma of soft tissue - LEFT rectus sheath. - Condition is Stable. - Discharge Instructions: Hematoma, [id number]. - Prescriptions for Diclofenac Sodium 75 mg Oral Tablet, Delayed Release (E.C.) - take 1 tablet by ORAL route 2 times per day; 30 tablet. Robaxin- 750 750 mg Oral Tablet - take 1 tablet by ORAL route every 6 hours As needed; 40 tablet. - Medication Reconciliation, Local Pharmacy Hours form. - Follow up: Tobias Busby MD; When: Call to arrange an appointment; Reason: Further diagnostic work-up, Recheck today's complaints, Continuance of care. - Problem is an ongoing problem. - Symptoms are unchanged. Historical: - Allergies: No known drug Allergies; - Home Meds: 1. amoxicillin 500 mg Oral cap 1 cap every 12 hours for Upper Respiratory Infection (Last dose: 04/09/2016 21:00) 2. lisinopril 20 mg Oral tab 1 tab Twice a day (Last dose: 04/09/2016 20:00) 3. metoprolol tartrate 100 mg Oral tab 1 tab once daily (Last dose: 04/09/2016 07:00) 4. Percocet 5-325 mg Oral tab (Last dose: 04/10/2016 00:01) - PMHx: Hypertension; Polycystic Ovary Disease; - PSHx: Appendectomy; ; - Social history: Smoking status: Patient states was never smoker of tobacco. No barriers to communication noted, The patient speaks fluent Mexican, Speaks appropriately for age, Preferred Language: Mexican. - Family history: Not pertinent. - : The pt / caregiver states he / she is not on anticoagulants. Home medication list is obtained from the patient. - Exposure Risk Screening:: None identified. 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 3 in. (160.02 cm); Pain 10/10; 07:01 BP 141 / 84; Pulse 87; Resp 16; Pulse Ox 98% on R/A; Pain 10/10; lf1 11:05 BP 150 / 100; Pulse 95; Resp 18; Temp 98; Pulse Ox 99% ; mk4 05:05 Body Mass Index 42.16 (107.95 kg, 160.02 cm) lf1 MDM: 07:08 IV Saline Lock ordered. btw 07:08 NS 0.9% 1000 ml IV at bolus once ordered. btw 07:08 Metoclopramide 20 mg IV at 80 mg/hr once over 15 mins ordered. btw 07:08 diphenhydrAMINE 50 mg IVP once ordered. btw 07:08 Amylase Ordered. EDMS 07:09 Basic Metabolic Profile Ordered. EDMS 07:09 CBC with Diff Ordered. EDMS 07:09 Lipase Ordered. EDMS 07:09 Liver Profile Ordered. EDMS 07:09 Lactic Acid (Bravo tube on ice) Ordered. EDMS 07:09 CT ABD & PELVIS: IV Contrast Only Ordered. EDMS 07:09 NOTHING BY MOUTH+DIET ordered. EDMS 08:50 CBC with Diff Reviewed. btw 09:18 Financial registration complete. lg 09:20 Basic Metabolic Profile Reviewed. btw 09:20 Lipase Reviewed. btw 09:20 Liver Profile Reviewed. btw 09:20 Amylase Reviewed. btw 09:20 Lactic Acid (Bravo tube on ice) Reviewed. btw 09:28 [facility] [place] Agreement was scanned into [employer] and attached to record. lg 13:23 T-Sheet-- Draft Copy was scanned into [employer] and attached to record. gb 04/11 14:17 ED course: dr busby faxed forml reaport of ct abd/p for fu mlg. ml Administered Medications: 04/10 08:19 Drug: NS 0.9% 1000 ml [sodium chloride 0.9 % intravenous solution] Route: IV; Rate: mk4 bolus; Site: left hand; 08:19 Drug: Metoclopramide 20 mg [metoclopramide 5 mg/mL injection solution] Route: IV; Rate: mk4 80 mg/hr; Infused Over: 15 mins; Site: left hand; 08:19 Drug: diphenhydrAMINE 50 mg [diphenhydramine 50 mg/mL injection solution (1 mL)] Route: mk4 IVP; Site: left hand; Signatures: Dispatcher [employer] Jhoan Garcia MD MD ml Madeline Brandon, Reg Reg gb Rafi Huerta, Reg Reg lg Cari Wick RN RN lf1 Reagan Billy PA PA btw King, Margaret RN RN mk4 The chart was reviewed and I authenticate all verbal orders and agree with the evaluation and treatment provided.Attachments: 09:28 [facility] Payment Agreement lg 13:23 T-Sheet-- Draft Copy gb Chart Complete MTDD
== END 2016-04-10 11:06 | disposition home or self-care (01) ==
LOC: M ED 04:56
DX: M79.81 Nontraumatic hematoma of soft tissue (principal); I10 Essential (primary) hypertension; E28.2 Polycystic ovarian syndrome; Z79.899 Other long term (current) drug therapy
CPT/HCPCS: 36415; 74177; 80048; 80076; 82150; 83605; 83690; 85025; 96374; 96375; 99284; J1200; J2765; Q9967

== ENCOUNTER → 2016-04-14 | Outpatient (CLI) | payer OTHER ==
[2016-04-14 10:05] LABS: MEAN CORPUSCULAR HEMOGLOBIN 26.7 pg (27.0-33.0); MEAN CORPUSCULAR HGB CONC 31.7 g/dl (32.0-36.5); MEAN CORPUSCULAR VOLUME 84.1 fl (80.0-96.0); RED CELL DISTRIBUTION WIDTH 15.5 % (11.5-14.5); WHITE BLOOD COUNT 8.2 K/mm3 (4.0-10.0)
== END ==
LOC: M WUC 08:18
PROVIDERS: ATTEND Family Medicine
DX: J01.90 Acute sinusitis, unspecified (principal)

== ENCOUNTER → 2016-04-18 | Outpatient (CLI) | payer OTHER ==
[2016-04-18 12:36] LABS: MEAN CORPUSCULAR HEMOGLOBIN 27.2 pg (27.0-33.0); MEAN CORPUSCULAR HGB CONC 32.2 g/dl (32.0-36.5); MEAN CORPUSCULAR VOLUME 84.3 fl (80.0-96.0); RED CELL DISTRIBUTION WIDTH 14.2 % (11.5-14.5); WHITE BLOOD COUNT 8.3 K/mm3 (4.0-10.0)
== END ==
LOC: M WUC 09:20
PROVIDERS: ATTEND Family Medicine
DX: S30.1XXD Contusion of abdominal wall, subsequent encounter (principal); X58.XXXA Exposure to other specified factors, initial encounter; Y92.89 Other specified places as the place of occurrence of the external cause; Y93.89 Activity, other specified; Y99.8 Other external cause status

== ENCOUNTER → 2016-04-23 | Outpatient (CLI) | payer OTHER | LOC: M WUC 17:14 | PROVIDERS: ATTEND Physician Assistant | DX: R10.30 Lower abdominal pain, unspecified (principal); J02.9 Acute pharyngitis, unspecified ==

== ENCOUNTER 2016-04-25 23:46 | Emergency (ER) | payer OTHER ==
[2016-04-26] MEDS ORDERED: ACETAMINOPHEN 325 MG TAB As Ordered ONE (00:34)
[2016-04-26] MEDS ORDERED: AMOXICILLIN 500 MG CAP As Ordered ONE (00:34)
--- NOTE | 2016-04-26 00:41 | EDDOCDS ---
Nurse's Notes [facility] Name: Som Escobar Age: 30 yrs Sex: Female : 1985 Arrival Date: 04/25/2016 Time: 23:46 Bed Triage 3 Private MD: Daniella Azul Diagnosis: Acute pharyngitis Presentation: 04/25 23:50 Presenting complaint: Patient states: Sore throat for last couple of days. Had strept mcp screen done at urgent care which was negative. Risk factors: Stridor is not present. Drooling is not present. Shortness of breath is not present. Cellulitis is not present. Adult Sepsis Screening: The patient does not have new or worsening altered mentation. Patient's respiratory rate is less than 22. Systolic blood pressure is greater than 100. Patient has a qSOFA score of 0- Negative Sepsis Screen. Suicide/Homicide risk assessment- the patient denies having any suicidal and/or homicidal ideations and does not present with any other emotional, behavioral or mental health complaints. Status: Patient is not a sales & service associate or dependent. Transition of care: patient was not received from another setting of care. 23:50 Acuity: JOSE Level 5 [facility] 23:50 Method Of Arrival: Walkin/Carried/Asstd [facility] Triage Assessment: 23:52 General: Appears uncomfortable, Behavior is cooperative. Pain: Location: throat Pain mcp currently is 10 out of 10 on a pain scale. HIV screening NA for this visit Offered previously. Neurological: No deficits noted. EENT: Reports pain in throat Pain is 10 out of 10 on a pain scale. Respiratory: Airway is patent Respiratory effort is even, unlabored. Derm: Skin is pink, warm & dry. Historical: - Allergies: no known allergies; - Home Meds: 1. lisinopril 20 mg Oral tab 1 tab twice a day - PMHx: Hypertension; Polycystic Ovary Disease; - PSHx: Appendectomy; ; - Social history: Smoking status: Patient states was never smoker of tobacco. No barriers to communication noted, The patient speaks fluent Algerian. - Family history: Not pertinent. - : The pt / caregiver states he / she is not on anticoagulants. Home medication list is obtained from the patient. - Exposure Risk Screening:: None identified. Screenin/04 00:37 Screening information is obtained from the patient. Fall risk: No risks identified. cz Assistance ADL's: requires no assistance with activities of daily living. Abuse/DV Screen: The patient / caregiver reports he/she is: not in a situation that causes fear, pain or injury. Nutritional screening: No deficits noted. Advance Directives: Currently, there is no health care proxy. There is no active DNR order. There is no living will. There is no Power of Lead Producer. Advance directive information has not previously been placed in an [facility] medical record. Further advance directive information is declined. home support is adequate. Assessment: 00:37 General: Appears uncomfortable. Pain: Location: face. cz Vital Signs: 02 23:47 BP 157 / 98 RA Sitting (auto/lg); Pulse 86; Resp 18; Temp 99.4(O); Pulse Ox 97% on R/A; rs6 Weight 104.78 kg (R); Height 5 ft. 3 in. (160.02 cm) (R); Pain 10/10; 23:47 Body Mass Index 40.92 (104.78 kg, 160.02 cm) rs6 Vitals: 23:47 Log In Time: April 25, 2016 at 23:47. rs6 ED Course: 23:47 Patient visited by Stephanie Mohan PCA. rs6 23:47 Daniella Azul MD is Private Physician. rs6 23:47 Patient moved to Waiting rs6 23:48 Patient visited by Stephanie Mohan PCA. rs6 23:48 Patient moved to Pre RCE rs6 23:51 Triage Initiated [facility] 23:52 Patient visited by Shelli Pearce RN. [facility] 04/26 00:07 Ludwig Horton PA-C is PHCP. dk1 00:07 Terrance Johnson DO is Attending Physician. dk1 00:09 Patient moved to Triage 3 cz 00:14 Patient visited by Ludwig Horton PA-C. dk1 00:31 Daniella Azul MD is Referral Physician. dk1 00:37 The patient / caregiver is instructed regarding the plan of care and ED course. cz 00:37 No IV's were initiated during this patient's visit. No procedures done that require cz assistance. Administered Medications: 00:37 Drug: Amoxicillin 500 mg [amoxicillin 500 mg capsule (1 caps)] Route: PO; cz 00:37 Drug: Acetaminophen 650 mg [acetaminophen 325 mg tablet (2 tabs)] Route: PO; cz Order Results: There are currently no results for this order. Outcome: 00:31 Discharge ordered by Provider. dk1 00:37 Discharge Assessment: Patient awake, alert and oriented x 3. No cognitive and/or cz functional deficits noted. Patient verbalized understanding of disposition instructions. patient administered narcotics - yes. Pt provided with safe discharge. The following High Risk Discharge criteria are identified: None. Discharged to home ambulatory. Condition: stable. Discharge instructions given to patient, Instructed on discharge instructions, follow up and referral plans. medication usage, Demonstrated understanding of instructions, medications, Pt was receptive of discharge instructions/ teaching. Prescriptions given X 2. No special radiology studies were completed. Property :Personal belongings accompany Pt. 00:40 Patient left the ED. cz Signatures: Shelli Pearce, RN RN Kenn Sun, Ludwig Dent RN, CINDY WHITE dk1 Stephanie Mohan, YULI DELI ASSOCIATE rs6 JOSIAH
--- NOTE | 2016-04-26 00:41 | EDDOCDS ---
Physician Documentation [facility] Name: Som Escobar Age: 30 yrs Sex: Female : 1985 Arrival Date: 04/25/2016 Time: 23:46 Bed Triage 3 Private MD: Daniella Azul Disposition: 04/26/16 00:31 Discharged to Home/Self Care. Impression: Acute pharyngitis. - Condition is Stable. - Discharge Instructions: Pharyngitis. - Prescriptions for Amoxicillin 500 mg Oral Capsule - take 1 capsule by ORAL route every 8 hours for 10 days; 30 tablet. Tylenol 325 mg Oral Tablet - take 2 tablet by ORAL route every 6 hours as needed; 1 bottle. - Medication Reconciliation, Local Pharmacy Hours form. - Follow up: Daniella Azul MD; When: 2 - 3 days; Reason: Continuance of care. Follow up: Emergency Department; When: As needed; Reason: Worsening of conditions. - Problem is new. - Symptoms are unchanged. Historical: - Allergies: no known allergies; - Home Meds: 1. lisinopril 20 mg Oral tab 1 tab twice a day - PMHx: Hypertension; Polycystic Ovary Disease; - PSHx: Appendectomy; ; - Social history: Smoking status: Patient states was never smoker of tobacco. No barriers to communication noted, The patient speaks fluent Haitian. - Family history: Not pertinent. - : The pt / caregiver states he / she is not on anticoagulants. Home medication list is obtained from the patient. - Exposure Risk Screening:: None identified. Vital Signs: 04/25 23:47 BP 157 / 98 RA Sitting (auto/lg); Pulse 86; Resp 18; Temp 99.4(O); Pulse Ox 97% on R/A; rs6 Weight 104.78 kg / 231 lbs (R); Height 5 ft. 3 in. (160.02 cm) (R); Pain 10/10; 23:47 Body Mass Index 40.92 (104.78 kg, 160.02 cm) rs6 MDM: 04/26 00:31 Amoxicillin 500 mg PO once ordered. dk1 00:31 Acetaminophen Tablet 650 mg PO once ordered. dk1 Administered Medications: 00:37 Drug: Amoxicillin 500 mg [amoxicillin 500 mg capsule (1 caps)] Route: PO; cz 00:37 Drug: Acetaminophen 650 mg [acetaminophen 325 mg tablet (2 tabs)] Route: PO; cz Signatures: Shelli Pearce RN RN Kenn Sun RN RN cz Keyes, David, PA-C PA-C dk1 MTDD
--- NOTE | 2016-04-28 01:41 | EDDOCDS ---
Physician Documentation [facility] Name: Som Escobar Age: 30 yrs Sex: Female : 1985 Arrival Date: 04/25/2016 Time: 23:46 Bed Triage 3 Private MD: Daniella Azul Disposition: 04/26/16 00:31 Discharged to Home/Self Care. Impression: Acute pharyngitis. - Condition is Stable. - Discharge Instructions: Pharyngitis. - Prescriptions for Amoxicillin 500 mg Oral Capsule - take 1 capsule by ORAL route every 8 hours for 10 days; 30 tablet. Tylenol 325 mg Oral Tablet - take 2 tablet by ORAL route every 6 hours as needed; 1 bottle. - Medication Reconciliation, Local Pharmacy Hours form. - Follow up: Daniella Azul MD; When: 2 - 3 days; Reason: Continuance of care. Follow up: Emergency Department; When: As needed; Reason: Worsening of conditions. - Problem is new. - Symptoms are unchanged. Historical: - Allergies: no known allergies; - Home Meds: 1. lisinopril 20 mg Oral tab 1 tab twice a day - PMHx: Hypertension; Polycystic Ovary Disease; - PSHx: Appendectomy; ; - Social history: Smoking status: Patient states was never smoker of tobacco. No barriers to communication noted, The patient speaks fluent [place] Island[place]. - Family history: Not pertinent. - : The pt / caregiver states he / she is not on anticoagulants. Home medication list is obtained from the patient. - Exposure Risk Screening:: None identified. Vital Signs: 04/25 23:47 BP 157 / 98 RA Sitting (auto/lg); Pulse 86; Resp 18; Temp 99.4(O); Pulse Ox 97% on R/A; rs6 Weight 104.78 kg / 231 lbs (R); Height 5 ft. 3 in. (160.02 cm) (R); Pain 10/10; 23:47 Body Mass Index 40.92 (104.78 kg, 160.02 cm) rs6 MDM: 04/26 00:31 Amoxicillin 500 mg PO once ordered. dk1 00:31 Acetaminophen Tablet 650 mg PO once ordered. 1 00:42 [facility] Payment Agreement was scanned into OpenLabel and attached to record. [facility] 00:42 Financial registration complete. [facility] 17:07 T-Sheet-- Draft Copy was scanned into OpenLabel and attached to record. klr Administered Medications: 00:37 Drug: Amoxicillin 500 mg [amoxicillin 500 mg capsule (1 caps)] Route: PO; cz 00:37 Drug: Acetaminophen 650 mg [acetaminophen 325 mg tablet (2 tabs)] Route: PO; cz Signatures: Shelli Pearce RN RN mcp Zecher, Calvin, RN RN cz Keyes, David, PA-C PAKathe Miranda [facility] Mirela Beckwith The chart was reviewed and I authenticate all verbal orders and agree with the evaluation and treatment provided.Attachments: 00:42 [facility] Payment Agreement [facility] 17: T-Sheet-- Draft Copy klr Chart Complete MTDD
--- NOTE | 2016-04-28 01:41 | EDDOCDS ---
Nurse's Notes [facility] Name: Som Escobar Age: 30 yrs Sex: Female : 1985 Arrival Date: 04/25/2016 Time: 23:46 Bed Triage 3 Private MD: Daniella Azul Diagnosis: Acute pharyngitis Presentation: 04/25 23:50 Presenting complaint: Patient states: Sore throat for last couple of days. Had strept mcp screen done at urgent care which was negative. Risk factors: Stridor is not present. Drooling is not present. Shortness of breath is not present. Cellulitis is not present. Adult Sepsis Screening: The patient does not have new or worsening altered mentation. Patient's respiratory rate is less than 22. Systolic blood pressure is greater than 100. Patient has a qSOFA score of 0- Negative Sepsis Screen. Suicide/Homicide risk assessment- the patient denies having any suicidal and/or homicidal ideations and does not present with any other emotional, behavioral or mental health complaints. 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 Transition of care: patient was not received from another setting of care. 23:50 Acuity: JOSE Level 5 [facility] 23:50 Method Of Arrival: Walkin/Carried/Asstd [facility] Triage Assessment: 23:52 General: Appears uncomfortable, Behavior is cooperative. Pain: Location: throat Pain mcp currently is 10 out of 10 on a pain scale. HIV screening NA for this visit Offered previously. Neurological: No deficits noted. EENT: Reports pain in throat Pain is 10 out of 10 on a pain scale. Respiratory: Airway is patent Respiratory effort is even, unlabored. Derm: Skin is pink, warm & dry. Historical: - Allergies: no known allergies; - Home Meds: 1. lisinopril 20 mg Oral tab 1 tab twice a day - PMHx: Hypertension; Polycystic Ovary Disease; - PSHx: Appendectomy; ; - Social history: Smoking status: Patient states was never smoker of tobacco. No barriers to communication noted, The patient speaks fluent [place] African. - Family history: Not pertinent. - : The pt / caregiver states he / she is not on anticoagulants. Home medication list is obtained from the patient. - Exposure Risk Screening:: None identified. Screenin/04 00:37 Screening information is obtained from the patient. Fall risk: No risks identified. cz Assistance ADL's: requires no assistance with activities of daily living. Abuse/DV Screen: The patient / caregiver reports he/she is: not in a situation that causes fear, pain or injury. Nutritional screening: No deficits noted. Advance Directives: Currently, there is no health care proxy. There is no active DNR order. There is no living will. There is no Power of Electrical Designer Drafter. Advance directive information has not previously been placed in an [facility] medical record. Further advance directive information is declined. home support is adequate. Assessment: 00:37 General: Appears uncomfortable. Pain: Location: face. cz Vital Signs: 02 23:47 BP 157 / 98 RA Sitting (auto/lg); Pulse 86; Resp 18; Temp 99.4(O); Pulse Ox 97% on R/A; rs6 Weight 104.78 kg (R); Height 5 ft. 3 in. (160.02 cm) (R); Pain 10/10; 23:47 Body Mass Index 40.92 (104.78 kg, 160.02 cm) rs6 Vitals: 23:47 Log In Time: April 25, 2016 at 23:47. rs6 ED Course: 23:47 Patient visited by Stephanie Mohan PCA. rs6 23:47 Daniella Azul MD is Private Physician. rs6 23:47 Patient moved to Waiting rs6 23:48 Patient visited by Stephanie Mohan PCA. rs6 23:48 Patient moved to Pre RCE rs6 23:51 Triage Initiated [facility] 23:52 Patient visited by Shelli Pearce RN. [facility] 04/26 00:07 Ludwig Horton PA-C is PHCP. dk1 00:07 Terrance Johnson DO is Attending Physician. dk1 00:09 Patient moved to Triage 3 cz 00:14 Patient visited by Ludwig Horton PA-C. dk1 00:31 Daniella Azul MD is Referral Physician. dk1 00:37 The patient / caregiver is instructed regarding the plan of care and ED course. cz 00:37 No IV's were initiated during this patient's visit. No procedures done that require cz assistance. 00:42 [facility] Payment Agreement was scanned into [employer] and attached to record. [facility] 00:54 Patient name changed from Som\S\\S\Shawn\S\ to Som\S\Mily\S\Shawn. [facility] 17:07 T-Sheet-- Draft Copy was scanned into [employer] and attached to record. klr Administered Medications: 00:37 Drug: Amoxicillin 500 mg [amoxicillin 500 mg capsule (1 caps)] Route: PO; cz 00:37 Drug: Acetaminophen 650 mg [acetaminophen 325 mg tablet (2 tabs)] Route: PO; cz Order Results: There are currently no results for this order. Outcome: 00:31 Discharge ordered by Provider. dk1 00:37 Discharge Assessment: Patient awake, alert and oriented x 3. No cognitive and/or cz functional deficits noted. Patient verbalized understanding of disposition instructions. patient administered narcotics - yes. Pt provided with safe discharge. The following High Risk Discharge criteria are identified: None. Discharged to home ambulatory. Condition: stable. Discharge instructions given to patient, Instructed on discharge instructions, follow up and referral plans. medication usage, Demonstrated understanding of instructions, medications, Pt was receptive of discharge instructions/ teaching. Prescriptions given X 2. No special radiology studies were completed. Property :Personal belongings accompany Pt. 00:40 Patient left the ED. jeferson Signatures: [facility] Shelli Pearce RN RN mcp Zecher, Calvin, RN RN cz Keyes, David, Kathe Cortez PA-C, Rebecca, YULI WIRING MECHANIC rs6 Mirela Beckwith Chart Complete MTDD
--- NOTE | 2016-04-28 01:41 | EDDOCDS ---
Physician Documentation [facility] Name: Som Escobar Age: 30 yrs Sex: Female : 1985 Arrival Date: 04/25/2016 Time: 23:46 Bed Triage 3 Private MD: Daniella Azul Disposition: 04/26/16 00:31 Discharged to Home/Self Care. Impression: Acute pharyngitis. - Condition is Stable. - Discharge Instructions: Pharyngitis. - Prescriptions for Amoxicillin 500 mg Oral Capsule - take 1 capsule by ORAL route every 8 hours for 10 days; 30 tablet. Tylenol 325 mg Oral Tablet - take 2 tablet by ORAL route every 6 hours as needed; 1 bottle. - Medication Reconciliation, Local Pharmacy Hours form. - Follow up: Daniella Azul MD; When: 2 - 3 days; Reason: Continuance of care. Follow up: Emergency Department; When: As needed; Reason: Worsening of conditions. - Problem is new. - Symptoms are unchanged. Historical: - Allergies: no known allergies; - Home Meds: 1. lisinopril 20 mg Oral tab 1 tab twice a day - PMHx: Hypertension; Polycystic Ovary Disease; - PSHx: Appendectomy; ; - Social history: Smoking status: Patient states was never smoker of tobacco. No barriers to communication noted, The patient speaks fluent [place] Citizen. - Family history: Not pertinent. - : The pt / caregiver states he / she is not on anticoagulants. Home medication list is obtained from the patient. - Exposure Risk Screening:: None identified. Vital Signs: 04/25 23:47 BP 157 / 98 RA Sitting (auto/lg); Pulse 86; Resp 18; Temp 99.4(O); Pulse Ox 97% on R/A; rs6 Weight 104.78 kg / 231 lbs (R); Height 5 ft. 3 in. (160.02 cm) (R); Pain 10/10; 23:47 Body Mass Index 40.92 (104.78 kg, 160.02 cm) rs6 MDM: 04/26 00:31 Amoxicillin 500 mg PO once ordered. dk1 00:31 Acetaminophen Tablet 650 mg PO once ordered. 1 00:42 ON LICENSE OF [facility] Payment Agreement was scanned into bulletn. and attached to record. [facility] 00:42 Financial registration complete. [facility] 17:07 T-Sheet-- Draft Copy was scanned into bulletn. and attached to record. klr Administered Medications: 00:37 Drug: Amoxicillin 500 mg [amoxicillin 500 mg capsule (1 caps)] Route: PO; cz 00:37 Drug: Acetaminophen 650 mg [acetaminophen 325 mg tablet (2 tabs)] Route: PO; cz Signatures: Shelli Pearce RN RN mcp Zecher, Calvin, RN RN cz Keyes, David, PA-C PAKathe Miranda [facility] Mirela Beckwith The chart was reviewed and I authenticate all verbal orders and agree with the evaluation and treatment provided.Attachments: 00:42 ON LICENSE OF [facility] Payment Agreement [facility] 17: T-Sheet-- Draft Copy klr Chart Complete MTDD
== END 2016-04-26 00:40 | disposition home or self-care (01) ==
LOC: M ED 23:46
DX: J02.9 Acute pharyngitis, unspecified (principal); I10 Essential (primary) hypertension; E28.2 Polycystic ovarian syndrome; Z79.899 Other long term (current) drug therapy

== ENCOUNTER 2016-07-26 11:28 | Emergency (ER) | payer MEDICAID, OTHER ==
[~2016-07-26] VITALS: Ht 160 cm; Wt 106.6 kg
[2016-07-26] MEDS ORDERED: METF500T4 PO (11:41)
[2016-07-26] MEDS ORDERED: METO100T PO (11:41)
[2016-07-26] MEDS ORDERED: MORPHINE 2 MG/ML 1ML SYRINGE IV ONE (12:00)
[2016-07-26] MEDS ORDERED: ONDANSETRON 4MG/2ML VIAL (J2405) IV ONE (12:00)
[2016-07-26 12:38] LABS: BASO % 0.6 % (0.0-1.0); EOS # 0.2 K/mm3 (0.0-0.50); EOS % 1.8 % (0.0-3.0); LARGE UNSTAINED CELL # 0.1 K/mm3 (0.0-0.4); LARGE UNSTAINED CELL % 1.1 % (0.0-4.0); LYMPH # 2.3 K/mm3 (1.5-4.5); LYMPH % 25.8 % (24.0-44.0); MEAN CORPUSCULAR HEMOGLOBIN 27.7 pg (27.0-33.0); MEAN CORPUSCULAR HGB CONC 33.1 g/dl (32.0-36.5); MEAN CORPUSCULAR VOLUME 83.9 fl (80.0-96.0); MONO # 0.3 K/mm3 (0.0-0.8); MONO % 3.6 % (0.0-5.0); NEUTROPHILS # 5.9 K/mm3 (1.8-7.7); PLATELET COUNT, AUTOMATED 267 k/mm3 (150-450); RED CELL DISTRIBUTION WIDTH 14.5 % (11.5-14.5); WHITE BLOOD COUNT 8.7 K/mm3 (4.0-10.0)
[2016-07-26 13:04] LABS: ALBUMIN 3.3 GM/DL (3.2-5.2); ALBUMIN/GLOBULIN RATIO 0.69 (1.00-1.93); ALKALINE PHOSPHATASE 124 U/L (45-117); ALT/SGPT 55 U/L (12-78); AMYLASE 34 U/L (25-115); ANION GAP 7 MEQ/L (8-16); AST/SGOT 51 U/L (15-37); BILIRUBIN,DIRECT 0.1 MG/DL (0.0-0.2); BILIRUBIN,TOTAL 0.4 MG/DL (0.2-1.0); BLOOD UREA NITROGEN 16 MG/DL (7-18); CALCIUM LEVEL 8.8 MG/DL (8.5-10.1); CARBON DIOXIDE LEVEL 26 MEQ/L (21-32); CHLORIDE LEVEL 109 MEQ/L (98-107); CREATININE FOR GFR 0.84 MG/DL (0.55-1.02); GLOMERULAR FILTRATION RATE > 60.0 (>60); GLUCOSE, FASTING 129 MG/DL (70-105); POTASSIUM SERUM 3.7 MEQ/L (3.5-5.1); SODIUM LEVEL 142 MEQ/L (136-145); TOTAL PROTEIN 8.1 GM/DL (6.4-8.2)
[2016-07-26] MEDS ORDERED: KETOROLAC 30 MG/ML VIAL (J1885) IV ONE (14:30)
[2016-07-26] MEDS ORDERED: IBUP600T26 PO (17:22)
[2016-07-26 17:31] VITALS: BP 145/94
--- NOTE | 2016-07-27 08:03 | REP ---
PELVIC ULTRASOUND, NON-OB: HISTORY: Pain. COMPARISON: Multiple. Transvesical and transvaginal imaging was obtained. The uterus measures 9.8 x 5.3 x 6.4 cm. The parenchymal echo pattern is within normal limits. The endometrial echo complex measures 13 cm in thickness and is unremarkable. The right ovary measures 3.6 x 2.1 x 1.8 cm and is within normal limits with an RI of 0.50. The left ovary measures 3.9 x 2.2 x 3.1 cm and is within normal limits with an RI of 0.51. IMPRESSION: Normal pelvic ultrasound. Signed by Vinay Kamara DO 07/27/2016 09:55 A
--- NOTE | 2016-07-27 08:55 | REP ---
CT ABDOMEN: HISTORY: Left flank pain. COMPARISON: 04/10/2016, a contrast enhanced exam. Diffuse low density is seen throughout the hepatic parenchyma. There are no choleliths. There is a 1 mm sized calcification in the inferior pole of the right kidney, not causing obstructive phenomenon. Otherwise, there are no nephroliths. There is no hydronephrosis or hydroureter. There are no urinary bladder calcifications. Limited evaluation of the bowel loops and their mesenteries show no gross abnormalities. No free fluid or free air is seen in the abdomen or pelvis. Limited evaluation of the pancreas and adrenal glands show no abnormalities. The osseous structures are stable and intact. IMPRESSION: 1. Diffuse fatty infiltration of the liver. 2. 1 mm sized nonobstructing right nephrolith, inferior pole, unchanged. 3. No evidence of acute intra-abdominal or intrapelvic disease. Signed by Vinay Kamara DO 07/27/2016 09:58 A
== END 2016-07-26 17:33 | disposition home or self-care (01) ==
LOC: M ED 12:18
DX: N94.6 Dysmenorrhea, unspecified (principal); K76.0 Fatty (change of) liver, not elsewhere classified; E28.2 Polycystic ovarian syndrome; I10 Essential (primary) hypertension; Z79.899 Other long term (current) drug therapy; Z79.84 Long term (current) use of oral hypoglycemic drugs
CPT/HCPCS: 74176; 76830; 76856; 80048; 80076; 81001; 82150; 83690; 84702; 85025; 86850; 86900; 86901; 93976; 96374; 96375; 99282; J1885; J2405

== ENCOUNTER → 2016-09-12 | Outpatient (REF) | payer OTHER ==
[~2016-09-12] MED LIST: IBUP600T26 PO; METF500T4 PO; METO100T PO
[2016-09-12 12:12] LABS: MEAN CORPUSCULAR HEMOGLOBIN 28.2 pg (27.0-33.0); MEAN CORPUSCULAR HGB CONC 33.2 g/dl (32.0-36.5); MEAN CORPUSCULAR VOLUME 84.7 fl (80.0-96.0); RED CELL DISTRIBUTION WIDTH 13.8 % (11.5-14.5); WHITE BLOOD COUNT 6.4 K/mm3 (4.0-10.0)
== END ==
LOC: M SFHCPLAZ 08:05
PROVIDERS: ATTEND Family Medicine
DX: J01.90 Acute sinusitis, unspecified (principal)

== ENCOUNTER → 2016-10-02 | Outpatient (CLI) | payer OTHER ==
[~2016-10-02] MED LIST changes: +CLEO300C2 PO; +IBUP-1022 PO; -IBUP600T26 PO; +MAGICMW SS; -METO100T PO; +METO100T5 PO; +PRED20TA PO
== END ==
LOC: M WUC 08:45
PROVIDERS: ATTEND Family Medicine
DX: I10 Essential (primary) hypertension (principal)

== ENCOUNTER 2016-12-28 22:23 | Emergency (ER) | payer OTHER ==
[~2016-12-28] VITALS: Ht 160 cm; Wt 97.3 kg
[~2016-12-28 22:23] MED LIST changes: -CLEO300C2 PO; -MAGICMW SS; -PRED20TA PO
[2016-12-29] MEDS ORDERED: diphenhydrAMINE INJ 50MG/ML VIAL (J1200) IV STA (00:12)
[2016-12-29] MEDS ORDERED: KETOROLAC 30 MG/ML VIAL (J1885) IV ONE (00:15)
[2016-12-29] MEDS ORDERED: NS 1,000 ML IV ONE (00:15)
[2016-12-29 01:04] LABS: BASO % 0.2 % (0.0-1.0); EOS # 0.1 10^3/uL (0.0-0.50); EOS % 0.9 % (0.0-3.0); IMMATURE GRANULOCYTE % 0.2 % (0-0); LYMPH # 2.6 10^3/uL (1.5-4.5); LYMPH % 28.2 % (24.0-44.0); MEAN CORPUSCULAR HEMOGLOBIN 28.1 pg (27.0-33.0); MEAN CORPUSCULAR HGB CONC 33.1 g/dl (32.0-36.5); MONO # 0.5 10^3/uL (0.0-0.8); NEUTROPHILS # 5.8 10^3/uL (1.8-7.7); NEUTROPHILS % 64.5 % (36.0-66.0); PLATELET COUNT, AUTOMATED 255 10^3/uL (150-450); RED CELL DISTRIBUTION WIDTH 13.6 % (11.5-14.5)
[2016-12-29 01:23] LABS: ANION GAP 7 MEQ/L (8-16); BLOOD UREA NITROGEN 15 MG/DL (7-18); CALCIUM LEVEL 8.8 MG/DL (8.5-10.1); CARBON DIOXIDE LEVEL 29 MEQ/L (21-32); CHLORIDE LEVEL 106 MEQ/L (98-107); CREATININE FOR GFR 0.77 MG/DL (0.55-1.02); GLOMERULAR FILTRATION RATE > 60.0 (>60); GLUCOSE, FASTING 99 MG/DL (70-105); POTASSIUM SERUM 3.5 MEQ/L (3.5-5.1); SODIUM LEVEL 142 MEQ/L (136-145)
[2016-12-29] MEDS ORDERED: ISOVUE-370 76% 100ML VIAL (Q9967) As Ordered ONE (01:29)
[2016-12-29] MEDS ORDERED: diphenhydrAMINE INJ 50MG/ML VIAL (J1200) IV ONE (01:30)
--- NOTE | 2016-12-29 02:10 | REPUSA ---
CLINICAL HISTORY: Hoarse voice. TECHNIQUE: Multiple axial CT images were obtained through the neck with IV contrast material. MPR cor onal and sagittal sequences were obtained. COMMENTS: Mildly enlarged palatine tonsils. Moderate hypertrophy of the adenoids. Mildly enlarged bilateral cervical lymph nodes with the largest measuring 1.3 cm. The piriform sinuses are normal. There is no supra or infraglottic laryngeal mass. The proximal trachea is normal. There is no paravertebral soft tissue mass. The salivary glands are normal. The paravertebral soft tissue space is normal. Limited images through the posterior fossa demonstrate no evidence for tonsilar herniation. Evaluation of the visualized lung apices reveals no evidence for abnormality. There is no evidence for abnormal enhancement. IMPRESSION: Mildly enlarged palatine tonsils. Moderate hypertrophy of the adenoids. Probably infectious/inflammatory pathology. Associated mildly prominent cervical lymph nodes, probably reactive. Clinical evaluation and followup if needed are suggested. No critical airway narrowing. No drainable abscess formation. Thank you for your kind referral of this patient.
[2016-12-29] MEDS ORDERED: MAGICMW SS (02:13)
[2016-12-29] MEDS ORDERED: CLEO300C2 PO (02:13)
[2016-12-29] MEDS ORDERED: PRED20TA PO (02:13)
[2016-12-29 02:15] VITALS: BP 154/100
[2016-12-29] MEDS ORDERED: CLINDAMYCIN 150 MG CAP PO ONE (02:15)
[2016-12-29] MEDS ORDERED: MAGIC MOUTHWASH SUSPENSION BTL SS ONE ×2 (02:15→02:30)
== END 2016-12-29 02:38 | disposition home or self-care (01) ==
LOC: M ED 22:23
DX: R59.0 Localized enlarged lymph nodes (principal); Z79.01 Long term (current) use of anticoagulants; Z79.899 Other long term (current) drug therapy
CPT/HCPCS: 70491; 80048; 85025; 87880; 96361; 96374; 96375; 99284; J1200; J1885; Q9967

== ENCOUNTER 2017-07-21 14:43 | Emergency (ER) | payer OTHER ==
[2017-07-21 16:04] LABS: HEMATOCRIT 41.7 % (36.0-47.0); HEMOGLOBIN 13.8 g/dl (12.0-15.5); MEAN CORPUSCULAR HEMOGLOBIN 28.2 pg (27.0-33.0); MEAN CORPUSCULAR HGB CONC 33.1 g/dl (32.0-36.5); MEAN CORPUSCULAR VOLUME 85.1 fl (80.0-96.0); PLATELET COUNT, AUTOMATED 259 10^3/uL (150-450); RED CELL DISTRIBUTION WIDTH 13.2 % (11.5-14.5); WHITE BLOOD COUNT 8.1 10^3/uL (4.0-10.0)
[2017-07-21] MEDS: NS 1,000 ML IV (16:15)
[2017-07-21 16:20] LABS: CONTROL LINE HCG INT CTR LINE PRESENT; HCG, SERUM QUALITATIVE NEGATIVE (NEGATIVE)
[2017-07-21 16:36] LABS: KETONE, URINE AUTO RFX TRACE mg/dL (NEGATIVE); MUCUS, URINE RFX SMALL (NEGATIVE); NITRITE, URINE AUTO RFX NEGATIVE (NEGATIVE); RBC, URINE AUTO RFX TNTC /HPF (0-3); SPECIFIC GRAVITY UR AUTO RFX 1.029 (1.002-1.035); SQUAM EPITHELIAL CELL UR AURFX 2 /HPF (0-6); WBC, URINE AUTO RFX 4 /HPF (0-3)
[2017-07-21 16:37] LABS: LEUKOCYTE ESTERASE UR AUTO RFX TRACE (NEGATIVE)
== END 2017-07-21 18:12 | disposition home or self-care (01) ==
LOC: M ED 14:43
DX: N93.9 Abnormal uterine and vaginal bleeding, unspecified (principal)
CPT/HCPCS: 76856

== ENCOUNTER → 2017-10-15 | Outpatient (CLI) | payer OTHER ==
[2017-10-15 11:12] LABS: FREE T4 1.15 NG/DL (0.76-1.46)
[2017-10-15 11:16] LABS: PROGESTERONE 13.3 NG/ML
== END ==
LOC: M WUC 08:05
DX: E28.2 Polycystic ovarian syndrome (principal)
CPT/HCPCS: 84443

== ENCOUNTER 2017-10-24 01:35 | Emergency (ER) | payer OTHER ==
[2017-10-24] MEDS: methylPREDNISolone INJ 125 MG/2 ML VIAL (J2930) IM (04:45)
[2017-10-24] MEDS: HYDROMORPHONE HCL 0.5 MG/ 0.5 ML SYRINGE (J1170 PER 1) IM (04:45)
[2017-10-24] MEDS: NORCO 5/325MG TABLET (BULK FOR ED) PO (05:00)
== END 2017-10-24 05:25 | disposition home or self-care (01) ==
LOC: M ED 01:35
DX: M54.32 Sciatica, left side (principal); I10 Essential (primary) hypertension; Z79.899 Other long term (current) drug therapy
CPT/HCPCS: J2930

== ENCOUNTER → 2017-12-29 | Outpatient (CLI) | payer OTHER ==
[~2017-12-29] MED LIST changes: -IBUP-1022 PO; +ISOVUE-370 76% 100ML VIAL (Q9967) As Ordered; -METF500T4 PO; -METO100T5 PO
== END ==
LOC: M RADPRO 11:38
DX: N97.9 Female infertility, unspecified (principal); Z79.891 Long term (current) use of opiate analgesic; Z79.899 Other long term (current) drug therapy
CPT/HCPCS: 58340

== ENCOUNTER 2018-03-15 01:19 | Emergency (ER) | payer OTHER ==
[~2018-03-15] VITALS: Ht 160 cm; Wt 93.2 kg
[~2018-03-15 01:19] MED LIST changes: +CLEO300C2 PO; +IBUP-1022 PO; -ISOVUE-370 76% 100ML VIAL (Q9967) As Ordered; +MAGICMW SS; +METF500T4 PO; +METO100T5 PO; +NAPR-49 PO; +NORC7.5T35 PO; +NORCOTAB PO; +PRED20TA PO
[2018-03-15] MEDS ORDERED: METOPROLOL TARTRATE 100 MG TAB PO ONE (01:45)
[2018-03-15] MEDS ORDERED: LIDOCAINE VISCOUS 2% SOLN 15ML UDC SS STA (02:11)
[2018-03-15] MEDS ORDERED: LIDO1SOL7 PO (02:14)
[2018-03-15] MEDS ORDERED: AMOX500C PO (02:14)
[2018-03-15] MEDS ORDERED: IBUPROFEN 600 MG TAB PO ONE (02:15)
[2018-03-15] MEDS ORDERED: AMOXICILLIN 500 MG CAP PO ONE (02:15)
[2018-03-15 02:32] VITALS: BP 142/90
== END 2018-03-15 02:34 | disposition home or self-care (01) ==
LOC: M ED 01:19
DX: J02.0 Streptococcal pharyngitis (principal); I10 Essential (primary) hypertension

== ENCOUNTER 2018-03-28 07:06 | Emergency (ER) | payer OTHER ==
[~2018-03-28] VITALS: Ht 160 cm; Wt 87.7 kg
[~2018-03-28 07:06] MED LIST changes: +AMOX500C PO; +LIDO1SOL7 PO; -NAPR-49 PO; +NAPR-50 PO
[2018-03-28 07:18] VITALS: BP 180/110
[2018-03-28] MEDS ORDERED: ZITHTAB PO (07:42)
[2018-03-28] MEDS ORDERED: MAGICMW MT (07:43)
[2018-03-28] MEDS ORDERED: DIFL150T PO (07:44)
== END 2018-03-28 07:52 | disposition home or self-care (01) ==
LOC: M ED 07:06
DX: J02.0 Streptococcal pharyngitis (principal); I10 Essential (primary) hypertension

== ENCOUNTER → 2018-06-03 | Outpatient (REF) | payer OTHER ==
[~2018-06-03] MED LIST changes: +DIFL150T PO; +MAGICMW MT; +ZITHTAB PO
== END ==
LOC: M LAB REF 15:08
PROVIDERS: ATTEND Physician Assistant
DX: J11.89 Influenza due to unidentified influenza virus with other manifestations (principal)

== ENCOUNTER 2018-08-13 08:01 | Emergency (ER) | payer OTHER ==
[~2018-08-13] VITALS: Ht 162.6 cm; Wt 96.4 kg
[~2018-08-13 08:01] MED LIST changes: +HYDR-3715 PO; -LIDO1SOL7 PO; +LIDO1SOL8 PO; -NAPR-50 PO; +NAPR-837 PO; +NORC1TAB8 PO; -NORC7.5T35 PO; -NORCOTAB PO
[2018-08-13] MEDS ORDERED: NS 1,000 ML IV ONE (08:30)
[2018-08-13] MEDS ORDERED: ONDANSETRON 4MG/2ML VIAL (J2405) IV ONE (08:30)
[2018-08-13] MEDS ORDERED: MORPHINE 4 MG/ML 1ML VIAL/SYRINGE (J2270) IV ONE (08:30)
[2018-08-13 08:47] LABS: BASO % 0.2 % (0.0-1.0); EOS % 0.3 % (0.0-3.0); HEMATOCRIT 39.4 % (36.0-47.0); HEMOGLOBIN 13.2 g/dl (12.0-15.5); LYMPH # 0.5 10^3/uL (1.5-4.5); LYMPH % 7.9 % (24.0-44.0); MEAN CORPUSCULAR HEMOGLOBIN 28.1 pg (27.0-33.0); MEAN CORPUSCULAR HGB CONC 33.5 g/dl (32.0-36.5); MEAN CORPUSCULAR VOLUME 83.8 fl (80.0-96.0); MONO # 0.4 10^3/uL (0.0-0.8); MONO % 6.4 % (0.0-5.0); NEUTROPHILS # 5.6 10^3/uL (1.8-7.7); NEUTROPHILS % 84.9 % (36.0-66.0); PLATELET COUNT, AUTOMATED 204 10^3/uL (150-450); WHITE BLOOD COUNT 6.6 10^3/uL (4.0-10.0)
[2018-08-13 09:11] LABS: ALBUMIN 3.8 GM/DL (3.2-5.2); ALT/SGPT 14 U/L (12-78); AMYLASE 29 U/L (25-115); BILIRUBIN,DIRECT 0.2 MG/DL (0.0-0.2); BILIRUBIN,TOTAL 0.7 MG/DL (0.2-1.0); BLOOD UREA NITROGEN 9 MG/DL (7-18); CARBON DIOXIDE LEVEL 27 MEQ/L (21-32); CHLORIDE LEVEL 105 MEQ/L (98-107); CREATININE FOR GFR 0.77 MG/DL (0.55-1.30); GLOMERULAR FILTRATION RATE > 60.0 (>60); GLUCOSE, FASTING 102 MG/DL (70-100); LIPASE 66 U/L (73-393); POTASSIUM SERUM 3.7 MEQ/L (3.5-5.1); SODIUM LEVEL 138 MEQ/L (136-145); TOTAL PROTEIN 7.3 GM/DL (6.4-8.2)
--- NOTE | 2018-08-13 10:04 | REP ---
Clinical: Pelvic pain and abnormal uterine bleeding . Technique: Transabdominal pelvic ultrasound followed by transvaginal examination for better evaluation of the endometrium and adnexa with color Doppler evaluation of the ovaries. Findings: Bladder is unremarkable and measures 6.7 x 4.8 x 6.7 cm . Normal anteverted uterus measures 10.2 x 5.6 x 6.6 cm . The endometrial complex measures 11.0 mm thickness. No discrete uterine or endometrial abnormalities are appreciated. Bilateral ovaries are normal in appearance and vascularity without evidence for torsion. Right ovary measures 3.9 x 2.1 x 3.7 cm ; R I = 0.58 . Left ovary measures 3.4 x 2.1 x 2.0 cm ; R I = 0.62 . No pelvic fluid or adnexal mass lesion . Impression: 1. Mildly thickened endometrial complex likely related to menstrual cycle. 2. Normal bilateral ovaries without torsion. Electronically Signed by Bandar Bernard MD 08/13/2018 09:55 A
[2018-08-13] MEDS ORDERED: ISOVUE-370 76% 100ML VIAL (Q9967) As Ordered ONE (11:08)
[2018-08-13] MEDS ORDERED: KETOROLAC 30 MG/ML VIAL (J1885) IV ONE (11:15)
[2018-08-13] MEDS ORDERED: ACETAMINOPHEN 500 MG TAB PO ONE (11:30)
--- NOTE | 2018-08-13 11:43 | REP ---
Clinical: Left lower abdominal pain. Technique: Axial contrast enhanced images from the lung bases to the pubic symphysis using 100 ml Isovue 370 intravenous contrast material with coronal and sagittal re-formations. Comparison: 07/26/2016. Findings: Lung bases are clear. Visualized heart and pericardium normal. Liver, spleen, pancreas, gallbladder, bilateral adrenal glands and kidneys are essentially normal. 1 mm nonobstructing right renal calculus suggested.. The enteric system is without obstruction or acute inflammatory process. Pelvis demonstrates normal bladder and age-appropriate uterus/adnexa. No ascites. No free air. No adenopathy. Abdominal aorta without aneurysm or dissection. Musculoskeletal structures intact. 1 cm fat containing periumbilical hernia noted. Impression: No obvious acute abdominopelvic pathology appreciated. 1 cm fat containing periumbilical hernia. Electronically Signed by Bandar Bernard MD 08/13/2018 11:34 A
[2018-08-13 11:52] LABS: CHLAMYDIA DNA AMPLIFICATION NEGATIVE (NEGATIVE); GC DNA AMPLIFICATION NEGATIVE (NEGATIVE)
[2018-08-13 12:28] VITALS: BP 128/78
== END 2018-08-13 13:03 | disposition home or self-care (01) ==
LOC: M ED 08:01
DX: N93.9 Abnormal uterine and vaginal bleeding, unspecified (principal); N94.6 Dysmenorrhea, unspecified; I10 Essential (primary) hypertension; E28.2 Polycystic ovarian syndrome
CPT/HCPCS: 74177; 76830; 76856; 80048; 80076; 81001; 82150; 83690; 84702; 85025; 87210; 87491; 87591; 87880; 93976; 96361; 96374; 96375; 99284; J1885; J2270; J2405; Q9967

== ENCOUNTER → 2018-08-17 | Outpatient (CLI) | payer OTHER ==
--- NOTE | 2018-08-17 16:09 | REP ---
Clinical: Hemoptysis . Comparison: None . Technique: PA and lateral. Findings: The mediastinum and cardiac silhouette are normal. The lung muir are clear and without acute consolidation, effusion, or pneumothorax. The skeletal structures are intact and normal. Impression: 1. No acute cardiopulmonary process. Electronically Signed by Bandar Bernard MD 08/17/2018 04:01 P
== END ==
LOC: M RAD 15:46
PROVIDERS: ATTEND Family Medicine
DX: R04.2 Hemoptysis (principal)

== ENCOUNTER 2018-11-17 07:17 | Emergency (ER) | payer OTHER ==
[~2018-11-17] VITALS: Ht 160 cm; Wt 84.1 kg
[~2018-11-17 07:17] MED LIST changes: +METF-791 PO; -METF500T4 PO
[2018-11-17 08:18] LABS: BASO % 0.2 % (0.0-1.0); EOS # 0.1 10^3/uL (0.0-0.50); EOS % 1.2 % (0.0-3.0); HEMATOCRIT 37.7 % (36.0-47.0); HEMOGLOBIN 12.7 g/dl (12.0-15.5); LYMPH # 1.9 10^3/uL (1.5-4.5); LYMPH % 24.2 % (24.0-44.0); MEAN CORPUSCULAR HEMOGLOBIN 28.5 pg (27.0-33.0); MEAN CORPUSCULAR HGB CONC 33.7 g/dl (32.0-36.5); MEAN CORPUSCULAR VOLUME 84.7 fl (80.0-96.0); MONO # 0.5 10^3/uL (0.0-0.8); MONO % 6.2 % (0.0-5.0); NEUTROPHILS # 5.4 10^3/uL (1.8-7.7); NEUTROPHILS % 67.8 % (36.0-66.0); PLATELET COUNT, AUTOMATED 220 10^3/uL (150-450); RED BLOOD COUNT 4.45 10^6/uL (4.00-5.40)
[2018-11-17 08:26] LABS: APPEARANCE, URINE HAZY (CLEAR); BACTERIA, URINE AUTO NEGATIVE (NEGATIVE); BILIRUBIN, URINE AUTO NEGATIVE (NEGATIVE); BLOOD, URINE BLOOD NEGATIVE (NEGATIVE); COLOR, URINE YELLOW (YELLOW); GLUCOSE, URINE (UA) AUTO NEGATIVE (NEGATIVE); KETONE, URINE AUTO NEGATIVE (NEGATIVE); LEUKOCYTE ESTERASE, URINE AUTO TRACE (NEGATIVE); MUCUS, URINE SMALL (NEGATIVE); NITRITE, URINE AUTO NEGATIVE (NEGATIVE); PROTEIN, URINE AUTO NEGATIVE (NEGATIVE); RBC, URINE AUTO 1 /HPF (0-3); SPECIFIC GRAVITY URINE AUTO 1.018 (1.002-1.035); SQUAMOUS EPITHELIAL CELL UR AU 2 /HPF (0-6); UROBILINOGEN, URINE AUTO 0.2 mg/dL (0.0-2.0); WBC, URINE AUTO 4 /HPF (0-3)
[2018-11-17 08:41] LABS: ALBUMIN 3.4 GM/DL (3.2-5.2); ALT/SGPT 15 U/L (12-78); AMYLASE 32 U/L (25-115); BILIRUBIN,DIRECT 0.2 MG/DL (0.0-0.2); BILIRUBIN,TOTAL 0.6 MG/DL (0.2-1.0); BLOOD UREA NITROGEN 14 MG/DL (7-18); CALCIUM LEVEL 8.4 MG/DL (8.5-10.1); CARBON DIOXIDE LEVEL 24 MEQ/L (21-32); CHLORIDE LEVEL 108 MEQ/L (98-107); CK-MB VALUE MASS 1.8 NG/ML (<3.6); CPK CREATINE PHOSPHOKINASE 83 U/L (26-192); GLOMERULAR FILTRATION RATE > 60.0 (>60); GLUCOSE, FASTING 108 MG/DL (70-100); LIPASE 92 U/L (73-393); MB/CK RELATIVE INDEX 2.17 (< OR =4); POTASSIUM SERUM 3.8 MEQ/L (3.5-5.1); SODIUM LEVEL 140 MEQ/L (136-145); TOTAL PROTEIN 6.7 GM/DL (6.4-8.2); TROPONIN I < 0.02 NG/ML (< 0.10)
[2018-11-17 08:42] LABS: HCG, SERUM QUALITATIVE NEGATIVE (NEGATIVE)
[2018-11-17] MEDS ORDERED: NS 500 ML IV ONE (09:30)
[2018-11-17] MEDS ORDERED: KETOROLAC 30 MG/ML VIAL (J1885) IV ONE (09:30)
[2018-11-17] MEDS ORDERED: ISOVUE-370 76% 100ML VIAL (Q9967) As Ordered ONE (09:43)
[2018-11-17] MEDS ORDERED: MORPHINE 2 MG/ML 1ML SYRINGE (J2270) IV ONE (11:30)
--- NOTE | 2018-11-17 12:11 | REP ---
CT of the abdomen and pelvis with IV contrast, without bowel contrast for right sided abdominal pain: Comparison is 08/13/2018. The visualized lung muir are unremarkable. The hepatic parenchyma, gallbladder, pancreas and spleen are unremarkable. The adrenals, kidneys and abdominal aorta are unremarkable. There is no periaortic adenopathy or mass. There is no bowel distension or obstruction. Mesentery is unremarkable. There is a 1.7 cm umbilical hernia containing omental fat but no bowel. This is unchanged. Pelvis: The appendix cannot be identified, however, there is no pericecal phlegmon. There is a right adnexal cyst measuring three point centimeters as an interval change. The left adnexa and uterus are unremarkable. The bladder is unremarkable. There is no pelvic adenopathy or ascites. Impression: There is a 3.8 cm right adnexal cyst as an interval change. There is a 1.7 cm fat containing umbilical hernia, unchanged. Otherwise, negative CT study of the abdomen and pelvis. Electronically Signed by Colby Pedersen MD 11/17/2018 10:21 A
[2018-11-17] MEDS ORDERED: KETO10TAB PO (12:58)
[2018-11-17 13:18] VITALS: BP 175/90
--- NOTE | 2018-11-18 20:35 | ECGEPIP ---
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
== END 2018-11-17 13:19 | disposition home or self-care (01) ==
LOC: M ED 07:17
DX: S39.011A Strain of muscle, fascia and tendon of abdomen, initial encounter (principal); X50.0XXA Overexertion from strenuous movement or load, initial encounter; Y92.89 Other specified places as the place of occurrence of the external cause; Y93.89 Activity, other specified; Y99.0 Civilian activity done for income or pay; K42.9 Umbilical hernia without obstruction or gangrene; N83.291 Other ovarian cyst, right side; I10 Essential (primary) hypertension; Z87.442 Personal history of urinary calculi; N83.299 Other ovarian cyst, unspecified side; Z87.891 Personal history of nicotine dependence; Z79.899 Other long term (current) drug therapy
CPT/HCPCS: 36415; 74177; 80048; 80076; 81001; 82150; 82550; 82553; 83690; 84703; 85025; 85379; 93005; 96361; 96374; 96375; 99284; J1885; J2270; Q9967

== ENCOUNTER → 2019-09-08 | Outpatient (REF) | payer OTHER ==
[~2019-09-08] MED LIST changes: +KETO10TAB PO; -LIDO1SOL8 PO; +LIDO2SOL17 PO; -METF-791 PO; +METF-838 PO
[2019-09-08 12:23] LABS: BLOOD UREA NITROGEN 19 MG/DL (7-18); CARBON DIOXIDE LEVEL 25 MEQ/L (21-32); CHLORIDE LEVEL 107 MEQ/L (98-107); CREATININE FOR GFR 0.76 MG/DL (0.55-1.30); GLOMERULAR FILTRATION RATE > 60.0 (>60); GLUCOSE, FASTING 93 MG/DL (70-100); HCG, SERUM QUANTITATIVE < 1.0 MIU/ML; POTASSIUM SERUM 4.3 MEQ/L (3.5-5.1); SODIUM LEVEL 139 MEQ/L (136-145)
== END ==
LOC: M SFHCPLAZ 08:01
PROVIDERS: ATTEND Family Medicine
DX: O20.9 Hemorrhage in early pregnancy, unspecified (principal); Z13.1 Encounter for screening for diabetes mellitus; I10 Essential (primary) hypertension

== ENCOUNTER → 2020-04-19 | Outpatient (REF) | payer OTHER ==
[2020-04-19 16:07] LABS: CHLAMYDIA DNA AMPLIFICATION NEGATIVE (NEGATIVE); GC DNA AMPLIFICATION NEGATIVE (NEGATIVE)
== END ==
LOC: M SFHCWAGY 13:27
PROVIDERS: ATTEND Nurse Practitioner Family
DX: Z11.3 Encounter for screening for infections with a predominantly sexual mode of transmission (principal)

== ENCOUNTER 2020-07-31 07:21 | Emergency (ER) | payer OTHER ==
[~2020-07-31] VITALS: Ht 157.5 cm; Wt 98.1 kg
[2020-07-31] MEDS ORDERED: PREN1CHW6 PO (07:28)
[2020-07-31 08:19] LABS: APPEARANCE, URINE CLOUDY (CLEAR); BACTERIA, URINE AUTO NEGATIVE (NEGATIVE); BILIRUBIN, URINE AUTO NEGATIVE (NEGATIVE); BLOOD, URINE BLOOD 3+ (NEGATIVE); COLOR, URINE YELLOW (YELLOW); GLUCOSE, URINE (UA) AUTO NEGATIVE (NEGATIVE); KETONE, URINE AUTO NEGATIVE (NEGATIVE); LEUKOCYTE ESTERASE, URINE AUTO TRACE (NEGATIVE); MUCUS, URINE SMALL (NEGATIVE); NITRITE, URINE AUTO NEGATIVE (NEGATIVE); PROTEIN, URINE AUTO 1+ mg/dL (NEGATIVE); RBC, URINE AUTO 2 /HPF (0-3); SPECIFIC GRAVITY URINE AUTO 1.024 (1.002-1.035); SQUAMOUS EPITHELIAL CELL UR AU 12 /HPF (0-6); UROBILINOGEN, URINE AUTO 0.2 mg/dL (0.0-2.0); WBC, URINE AUTO 8 /HPF (0-3)
[2020-07-31 08:23] LABS: BASO % 0.3 % (0.0-1.0); EOS # 0.1 10^3/uL (0.0-0.5); EOS % 1.3 % (0.0-3.0); HEMATOCRIT 35.2 % (36.0-47.0); HEMOGLOBIN 10.1 g/dl (12.0-15.5); LYMPH # 1.5 10^3/uL (1.5-5.0); LYMPH % 19.2 % (24.0-44.0); MEAN CORPUSCULAR HEMOGLOBIN 20.1 pg (27.0-33.0); MEAN CORPUSCULAR HGB CONC 28.7 g/dl (32.0-36.5); MONO # 0.5 10^3/uL (0.0-0.8); NEUTROPHILS # 5.8 10^3/uL (1.5-8.5); NEUTROPHILS % 72.8 % (36.0-66.0); PLATELET COUNT, AUTOMATED 301 10^3/uL (150-450); RED BLOOD COUNT 5.03 10^6/uL (4.00-5.40)
[2020-07-31 09:21] LABS: ALBUMIN 3.5 GM/DL (3.2-5.2); ALT/SGPT 12 U/L (12-78); BILIRUBIN,TOTAL 0.5 MG/DL (0.2-1.0); BLOOD UREA NITROGEN 14 MG/DL (7-18); CALCIUM LEVEL 8.7 MG/DL (8.5-10.1); CARBON DIOXIDE LEVEL 25 MEQ/L (21-32); CHLORIDE LEVEL 107 MEQ/L (98-107); GLOMERULAR FILTRATION RATE > 60.0 (>60); GLUCOSE, FASTING 105 MG/DL (70-100); HCG, SERUM QUANTITATIVE 1090 MIU/ML; POTASSIUM SERUM 4.1 MEQ/L (3.5-5.1); SODIUM LEVEL 139 MEQ/L (136-145); TOTAL PROTEIN 7.7 GM/DL (6.4-8.2)
--- NOTE | 2020-07-31 09:39 | REP ---
INDICATION: bleeding, first trimester COMPARISON: None. TECHNIQUE: Transabdominal and transvaginal 1st trimester obstetrical ultrasound with color Doppler evaluation. FINDINGS: Heterogeneous anteverted uterus measures 10.4 x 6.9 x 6.6 cm. An empty gestational sac is identified. Mean sac diameter of 4.3 mm corresponds to 5 weeks 0 days gestational age. Heterogeneous material within the endometrial complex also noted which may represent blood products. Bilateral maternal ovaries are normal in appearance and vascularity. Right ovary measures 4.0 x 2.2 x 1.9 cm (RI 0.65). Left ovary measures 3.6 x 1.6 x 2.5 cm (RI 0.51) and includes 15 mm dominant follicle/corpus luteum. No pelvic free fluid. IMPRESSION: 1. Findings as described above. Differential diagnosis includes early , blighted ovum/spontaneous , and much less likely ectopic cannot be excluded. 2. Correlation with serial HCG levels and repeat ultrasound as necessary. <Electronically signed by Bandar Bernard > 07/31/20 0908
[2020-07-31] MEDS ORDERED: METOPROLOL TARTRATE 100 MG TAB PO ONE (10:45)
[2020-07-31 12:55] VITALS: BP 192/111
[2020-07-31] MEDS ORDERED: **hydrALAZINE HCL** 25 MG TAB PO ONE (12:55)
[2020-07-31 13:15] VITALS: BP 198/112
== END 2020-07-31 13:31 | disposition home or self-care (01) ==
LOC: M ED 07:21
DX: O20.9 Hemorrhage in early pregnancy, unspecified (principal); O10.011 Pre-existing essential hypertension complicating pregnancy, first trimester; Z3A.01 Less than 8 weeks gestation of pregnancy; Z87.891 Personal history of nicotine dependence

== ENCOUNTER → 2020-08-02 | Outpatient (CLI) | payer OTHER ==
[~2020-08-02] MED LIST changes: +PREN1CHW6 PO
== END ==
LOC: M LAB 09:16
PROVIDERS: ATTEND Internal Medicine
DX: N93.9 Abnormal uterine and vaginal bleeding, unspecified (principal)

== ENCOUNTER → 2020-08-09 | Outpatient (CLI) | payer OTHER ==
--- NOTE | 2020-08-10 02:53 | REP ---
INDICATION: WITH INCONCLUSIVE VIABILITY COMPARISON: 07/31/2020 TECHNIQUE: Transabdominal and transvaginal 1st trimester obstetrical ultrasound with color Doppler evaluation. FINDINGS: Bladder is unremarkable and measures 7.8 x 7.7 x 6.8 cm. Anteverted uterus measures 11.7 x 6.4 x 5.0 cm with a heterogeneous endometrial complex measuring 20 mm with a small possible gestational sac but no definable yolk sac or pole. Mean sac diameter corresponds to 4 weeks 4 days gestational age. Findings are suspicious for spontaneous in progress and should be correlated with serial beta HCG levels. Differential diagnosis may include very early . Maternal ovaries are grossly normal. IMPRESSION: Possible early gestational sac versus spontaneous in progress. Correlation with serial HCG levels recommended. Repeat ultrasound as necessary. <Electronically signed by Bandar Bernard > 08/10/20 1770
== END ==
LOC: M WHC 12:48
PROVIDERS: ATTEND Obstetrics & Gynecology
DX: O36.80X0 Pregnancy with inconclusive fetal viability, not applicable or unspecified (principal); Z3A.01 Less than 8 weeks gestation of pregnancy

== ENCOUNTER → 2020-08-15 | Outpatient (REF) | payer OTHER | LOC: M PLALAB 10:30 | PROVIDERS: ATTEND Obstetrics & Gynecology | DX: O36.80X0 Pregnancy with inconclusive fetal viability, not applicable or unspecified (principal) ==

== ENCOUNTER → 2020-08-21 | Outpatient (CLI) | payer OTHER | LOC: M LABSMTC 09:39 | PROVIDERS: ATTEND Anesthesiology | DX: Z01.818 Encounter for other preprocedural examination (principal); Z20.822 Contact with and (suspected) exposure to COVID-19 ==

== ENCOUNTER 2020-08-23 07:14 | Day surgery (SDC) | payer OTHER ==
[~2020-08-23] VITALS: Ht 160 cm; Wt 98.9 kg
[~2020-08-23 07:14] MED LIST changes: +DOXYCYCLINE HYCLATE 100 MG in D5W MINI-BAG PLUS 100 ML IV ONE; +LR 1,000 ML IV ONE
[2020-08-23 07:56] LABS: HEMATOCRIT 33.3 % (36.0-47.0); HEMOGLOBIN 9.7 g/dl (12.0-15.5); MEAN CORPUSCULAR HEMOGLOBIN 20.7 pg (27.0-33.0); MEAN CORPUSCULAR HGB CONC 29.1 g/dl (32.0-36.5); PLATELET COUNT, AUTOMATED 320 10^3/uL (150-450); RED BLOOD COUNT 4.69 10^6/uL (4.00-5.40); WHITE BLOOD COUNT 7.4 10^3/uL (4.0-10.0)
[2020-08-23] MEDS ORDERED: fentaNYL 100 MCG/2 ML INJECTION (J3010) As Ordered ONE (08:30)
[2020-08-23] MEDS ORDERED: MIDAZOLAM INJ 2MG/2ML VIAL (J2250 PER 1MG) As Ordered ONE (08:30)
[2020-08-23] MEDS ORDERED: dexameTHASONE 4 MG/ML 1ML VIAL (J1100 PER 1MG) As Ordered ONE (08:30)
[2020-08-23] MEDS ORDERED: propofoL 200 MG/20 ML VIAL As Ordered ONE (08:30)
[2020-08-23] MEDS ORDERED: ONDANSETRON 4MG/2ML VIAL As Ordered ONE (08:30)
[2020-08-23] MEDS ORDERED: LIDOCAINE 2% 100MG/5ML SDV (FOR ANES.) As Ordered ONE (08:30)
[2020-08-23] MEDS ORDERED: KETOROLAC 60MG 2ML VIAL As Ordered ONE (10:20)
[2020-08-23] MEDS ORDERED: ACETAMINOPHEN 1000MG 100ML IV BTL (OFIRMEV) (J0131 PER 10MG) As Ordered ONE (10:21)
--- NOTE | 2020-08-23 10:34 | ROOPDOC ---
[facility] Report Of Operation Report of Operation DATE OF PROCEDURE: 08/23/2020 PREPROCEDURE DIAGNOSES: First trimester miscarriage, incomplete . POSTPROCEDURE DIAGNOSES: Same. PROCEDURE: Suction D&C. SURGEON: Patti Workman DO FACOG IMPOSER: none ANESTHESIA: General via LMA ESTIMATED BLOOD LOSS: Approximately 100 mL. IV FLUIDS REPLACED: 500 mL LR UOP: in and out cath, 75 mL COMPLICATIONS: none. SPECIMENS: products of conception, intrauterine tissue. PREOPERATIVE / PROPHYLACTIC ANTIBIOTIC: Doxycycline 100mg IV x1. INTRAOPERATIVE FINDINGS/REMARKS: Uterus sounded 9 cm, tissue obtained was grossly consistent with products of conception DESCRIPTION OF PROCEDURE: The patient was counseled, consented on the risks, benefits, indications and alternatives procedure. Informed consent was obtained. She was taken to the operating room with an IV running and placed on the operating table in dorsal supine position. Gen. anesthesia was administered and the airway was secured without any difficulty. She was prepared and draped in the normal sterile fashion. She was placed in the high lithotomy position. A time out was performed per protocol. The bladder was drained with a sterile in and out catheter. Sterile speculum was placed with good visualization of the cervix. The cervix was grasped with a single-tooth tenaculum at the anterior lip and downward traction was applied. The cervix was sequentially dilated with Alberto dilators up to a #20. A size 8 curved Vacurette was placed trans-cervically into the intrauterine cavity. Suction was activated. Tissue and blood return was consistent with products of conception. After removal of the Vacurette, a sharp curettage was performed with minimal tissue and blood return. Minimal bleeding from the cervical os was noted. The patient's vitals were normal and stable. The decision was made to conclude the procedure. Single-tooth tenaculum was removed from the cervix and the tenaculum sites were noted to be hemostatic. Again, minimal bleeding from the cervical os was noted. All instruments were removed from the vagina. Sponge and instrument counts were correct per protocol. The patient was transferred to the PACU in good and stable condition. Patti Workman DO FACOG. PATTI WORKMAN DO Aug 23, 2020 10:34
[2020-08-23] MEDS ORDERED: LR 1,000 ML IV SCH ×2 (11:00→11:05)
[2020-08-23] MEDS ORDERED: oxyCODONE 5MG TAB PO PRN (11:00)
[2020-08-23] MEDS ORDERED: fentaNYL 100 MCG/2 ML INJECTION (J3010) IV PRN (11:00)
[2020-08-23] MEDS ORDERED: HYDROMORPHONE HCL 0.5 MG/ 0.5 ML SYRINGE (J1170 PER 1) IV PRN (11:00)
[2020-08-23] MEDS ORDERED: ONDANSETRON 4MG/2ML VIAL IV PRN (11:00)
[2020-08-23 11:37] VITALS: BP 160/88
[2020-08-23] MEDS ORDERED: DOXYCYCLINE HYCLATE 100MG TABLET PO ONE (12:00)
== END 2020-08-23 12:35 | disposition home or self-care (01) ==
LOC: M SDC 07:14
PROVIDERS: ATTEND Obstetrics & Gynecology
DX: O02.1 Missed abortion (principal)
CPT/HCPCS: 36415; 59820; 85027; 86850; 86900; 86901; 88305; J0131; J1100; J1885; J2250; J2405; J3010

== ENCOUNTER 2021-01-08 08:25 | Emergency (ER) | payer OTHER ==
[~2021-01-08] VITALS: Ht 160 cm; Wt 93.6 kg
[~2021-01-08 08:25] MED LIST changes: -DOXYCYCLINE HYCLATE 100 MG in D5W MINI-BAG PLUS 100 ML IV ONE; -LR 1,000 ML IV ONE
[2021-01-08] MEDS ORDERED: LABE20TAB (08:39)
[2021-01-08] MEDS ORDERED: METF-838 (08:39)
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
--- OUTSIDE RECORDS SUMMARY | 2021-01-08 10:16 | CCD ---
Author Author [facility] Address Unknown Phone Unavailable Support Name Relationship Address Phone ECONO LODGE Next Of Kin [address] [place] [address] ECONOLODGE Next Of Kin [address] [place] [address] LARISSA JENKINS Next Of Kin Unknown UE Next Of Kin Unknown Unavailable OMAR JOINER Next Of Kin [address] [place] [address] UNEMPLOYED Next Of Kin [address] [place] [address] Omar Joiner ECON [address] [place] [address] [phone] Re-disclosure Warning The records that you are about to access may contain information from federally-assisted alcohol or drug abuse programs. If such information is present, then the following federally mandated warning applies: This information has been disclosed to you from records protected by federal confidentiality rules (42 CFR part 2). The federal rules prohibit you from making any further disclosure of this information unless further disclosure is expressly permitted by the written consent of the person to whom it pertains or as otherwise permitted by 42 CFR part 2. A general authorization for the release of medical or other information is NOT sufficient for this purpose. The Federal rules restrict any use of the information to criminally investigate or prosecute any alcohol or drug abuse patient.The records that you are about to access may contain highly sensitive health information, the redisclosure of which is protected by Article 27-F of the [facility] Public Health law. If you continue you may have access to information: Regarding HIV / AIDS; Provided by facilities licensed or operated by the [facility] Office of Mental Health; or Provided by the [facility] Office for People With Developmental Disabilities. If such information is present, then the following [facility] mandated warning applies: This information has been disclosed to you from confidential records which are protected by state law. State law prohibits you from making any further disclosure of this information without the specific written consent of the person to whom it pertains, or as otherwise permitted by law. Any unauthorized further disclosure in violation of state law may result in a fine or detention sentence or both. A general authorization for the release of medical or other information is NOT sufficient authorization for further disc losure. Family History Family Member Name Family Member Gender Family Member Status Date o f Status Description Data Source(s) Unknown Unknown Problem [facility] Unknown Unknown Problem MEDENT ([facility]) Unknown Female Problem MEDENT ([facility]) Encounters Encounter Providers Location Date Indications Data Source(s ) Outpatient [address] [place] [phone] 12/20/2020 12:00:00 AM EDT eCW1 ([facility]) Unknown [address] [place] [address] 12/17/2020 12:00:00 AM EDT eCW1 ([facility]) Outpatient [address] [place] [phone] 12/14/2020 12:00:00 AM EDT eCW1 ([facility]) Outpatient [address] [place] [phone] 12/11/2020 12:00:00 AM EDT eCW1 ([facility]) Outpatient [address] [place] [phone] 12/06/2020 12:00:00 AM EDT eCW1 ([facility]) Postop visit [address] [place] [phone] 09/07/2020 12:00:00 AM EDT eCW1 ([facility]) (WC 15ESGYN) 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 [address] [place] [phone] 08/21/2020 12:00:00 AM EDT eCW1 ([facility]) [place] [address] [facility] [address] 08/21/2020 12:00:00 AM EDT eCW1 ([facility]) ( ESTOB) WCenter Est OB [address] [place] [address] 08/15/2020 12:00:00 AM EDT eCW1 ([facility]) [place] [address] [facility] [address] 08/10/2020 12:00:00 AM EDT eCW1 ([facility]) [place] [address] [facility] [address] 08/02/2020 12:00:00 AM EDT eCW1 ([facility]) [place] [address] [facility] [address] 07/31/2020 12:00:00 AM EDT eCW1 ([facility]) Medications Medication Brand Name Start Date Product Form Dose Route Admi nistrative Instructions Pharmacy Instructions Status Indications Reaction Description Data Source(s) Labetalol hydrochloride 200 MG Oral Tablet LABETALOL HCL 12/27/2020 12:00:00 AM EDT tablet 60 TAKE ONE TABLET BY MOUTH TWI CE A DAY TAKE ONE TABLET BY MOUTH TWICE A DAY SOLD: 12/27/2020 [facility] Labetalol hydrochloride 200 MG Oral Tablet Labetalol H Cl 200 MG Labetalol HCl 200 MG 12/14/2020 12:00:00 AM EDT 1.0 {tablet} activ e Labetalol HCl 200 MG eCW1 ([facility]) Labetalol hydrochloride 200 MG Oral Tablet Labetalol H Cl 200 MG Labetalol HCl 200 MG 12/14/2020 12:00:00 AM EDT 1.0 {tablet} activ e Labetalol HCl 200 MG eCW1 ([facility]) Labetalol hydrochloride 200 MG Oral Tablet Labetalol H Cl 200 MG Labetalol HCl 200 MG 12/14/2020 12:00:00 AM EDT 1.0 {tablet} activ e Labetalol HCl 200 MG eCW1 ([facility]) Labetalol hydrochloride 100 MG Oral Tablet Labetalol H Cl 100 MG Labetalol HCl 100 MG 12/11/2020 12:00:00 AM EDT 1.0 {tablet} activ e Labetalol HCl 100 MG eCW1 ([facility]) 100 mg 12/11/2020 12:00:00 AM EDT tablet 60 TAKE ONE TABLET BY MOUTH TWICE A DAY TAKE ONE TABLET BY MOUTH TWICE A DAY SOLD: 12/11/2020 [facility] 100 mg 12/06/2020 12:00:00 AM EDT tablet 180 TAKE ONE TABLET BY MOUTH TWICE A DAY TAKE ONE TABLET BY MOUTH TWICE A DAY SOLD: 12/06/2020 [facility] 24 HR Metformin hydrochloride 500 MG Extended Release Oral T ablet METFORMIN HCL 09/08/2020 12:00:00 AM EDT tablet extended release 24 hr 30 TAKE ONE TABLET BY MOUTH WITH EVENING MEAL ONCE A DAY TAKE ONE TABLET BY MOUTH WITH EVENING ME AL ONCE A DAY SOLD: 09/08/2020 [facility] 24 HR Metformin hydrochloride 500 MG Extended Release Oral T ablet METFORMIN HCL 09/08/2020 12:00:00 AM EDT tablet extended release 24 hr 30 TAKE ONE TABLET BY MOUTH WITH EVENING MEAL ONCE A DAY TAKE ONE TABLET BY MOUTH WITH EVENING ME AL ONCE A DAY SOLD: 10/19/2020 [facility] 24 HR Metformin hydrochloride 500 MG Ext ended Release Oral Tablet metFORMIN HCl ER 500 MG metFORMIN HCl ER 500 MG 09/07/2020 12:00:00 AM EDT 1.0 {tablet_with_evening_meal} active metFO RMIN HCl ER 500 MG eCW1 ([facility]) 24 HR Metformin hydrochloride 500 MG Ext ended Release Oral Tablet metFORMIN HCl ER 500 MG metFORMIN HCl ER 500 MG 09/07/2020 12:00:00 AM EDT 1.0 {tablet_with_evening_meal} active metFO RMIN HCl ER 500 MG eCW1 ([facility]) 24 HR Metformin hydrochloride 500 MG Ext ended Release Oral Tablet metFORMIN HCl ER 500 MG metFORMIN HCl ER 500 MG 09/07/2020 12:00:00 AM EDT 1.0 {tablet_with_evening_meal} active metFO RMIN HCl ER 500 MG eCW1 ([facility]) 24 HR Metformin hydrochloride 500 MG Ext ended Release Oral Tablet metFORMIN HCl ER 500 MG metFORMIN HCl ER 500 MG 09/07/2020 12:00:00 AM EDT 1.0 {tablet_with_evening_meal} active metFO RMIN HCl ER 500 MG eCW1 ([facility]) 24 HR Metformin hydrochloride 500 MG Ext ended Release Oral Tablet metFORMIN HCl ER 500 MG metFORMIN HCl ER 500 MG 09/07/2020 12:00:00 AM EDT 1.0 {tablet_with_evening_meal} active metFO RMIN HCl ER 500 MG eCW1 ([facility]) 24 HR Metformin hydrochloride 500 MG Ext ended Release Oral Tablet metFORMIN HCl ER 500 MG metFORMIN HCl ER 500 MG 09/07/2020 12:00:00 AM EDT 1.0 {tablet_with_evening_meal} active metFO RMIN HCl ER 500 MG eCW1 ([facility]) 24 HR Metformin hydrochloride 500 MG Ext ended Release Oral Tablet metFORMIN HCl ER 500 MG metFORMIN HCl ER 500 MG 09/07/2020 12:00:00 AM EDT 1.0 {tablet_with_evening_meal} active metFO RMIN HCl ER 500 MG eCW1 ([facility]) Insurance Providers Payer name Policy type / Coverage type Policy ID Covered green party ID Covered green party's relationship to de oliveira Policy De Oliveira Plan Information [facility] AT [facility] [id number] [id number] [facility] [id number] Self [facility] Fliggo [id number] Self [id number] [facility] Talkwheel [id number] 18 [id number] ANSI-Medicaid [id number] ANSI-Not a Secondary Insurance [id number] ANSI-Commercial [id number] ANSI-Medicaid [id number] ANSI-Commercial [id number] ANSI-Not a Secondary Insurance [id number] ANSI-Commercial [id number] [facility] Health Maintenance Organization (HMO) [id number] Self [id number] ANSI-Commercial [id number] ANSI-Commercial [id number] ANSI-Not a Secondary Insurance [id number] ANSI-Medicaid [id number] ANSI-Medicaid [id number] ANSI-Commercial [id number] ANSI-Commercial [id number] ANSI-Not a Secondary Insurance [id number] ANSI-Commercial [id number] ANSI-Not a Secondary Insurance [id number] ANSI-Medicaid [id number] ANSI-Commercial [id number] [facility] Health Maintenance Organization ([facility]) [id number] Self [id number] [facility] Maintenance [facility] ([facility]) [id number] Self [id number] ANSI-Commercial [id number] ANSI-Medicaid [id number] ANSI-Commercial [id number] ANSI-Not a Secondary Insurance [id number] [employer] Health Maintenance Organization (HMO) [id number] Self [id number] [employer] Community Plan Medicaid [id number] Self [id number] [employer] COMMUNITY PLAN [id number] 18 [id number] MEDICAID [id number] SP [id number] [facility] COMMUNITY PLAN [facility] [id number] SP [id number] [facility] [id number] SP [id number] [facility]P AT [facility] [id number] 18 [id number] [facility] Commercial [id number] Self [facility] O [id number] S [id number] [facility] [id number] [facility] [id number] O BLUE [id number] SP [id number] [facility] [id number] SP [id number] UN[employer] COMMUNITY PLAN [facility] [id number] SP [id number] [facility] O [id number] S [id number] ANSI-Commercial [id number] Problems, Conditions, and Diagnoses Code Display Name Description Problem Type Effective Dates Data Source(s) Z34.80 care Supervision of other normal Oly cano 08/15/2020 12:00:00 AM EDT eCW1 ([facility]) Surgeries/Procedures No Information Results ID Date Data Source [id number] 08/21/2020 09:50:00 AM EDT [facility] Name Value Range Interpretation Code Description Data Celia rce(s) Supporting Document(s) SARS coronavirus 2 RNA [Presence] in Res piratory specimen by ASAF with probe detection NEGATIVE [facility] This lab was ordered by [facility] a nd reported by [facility]. ID Date Data Source HCG, SERUM QUANTITATIVE 08/15/2020 12:00:00 AM EDT eCW1 ([facility]) Name Value Range Interpretation Code Description Data Celia rce(s) Supporting Document(s) [id number] HCG, SERUM QUANTITATIVE eCW1 ( [facility]) Procedure Social History Code Duration Value Status Description Data Source(s ) Smoking 12/20/2020 12:00:00 AM EDT Former Smoker completed Former Smoker eCW1 ([facility]) Smoking 12/14/2020 12:00:00 AM EDT Former Smoker completed Former Smoker eCW1 ([facility]) Smoking 12/14/2020 12:00:00 AM EDT Former Smoker completed Former Smoker eCW1 ([facility]) Smoking 12/11/2020 12:00:00 AM EDT Former Smoker completed Former Smoker eCW1 ([facility]) Smoking 12/06/2020 12:00:00 AM EDT Former Smoker completed Former Smoker eCW1 ([facility]) Smoking 09/07/2020 12:00:00 AM EDT Former Smoker completed Former Smoker eCW1 ([facility]) Smoking 09/07/2020 12:00:00 AM EDT Former Smoker completed Former Smoker eCW1 ([facility]) Smoking 08/21/2020 12:00:00 AM EDT Former Smoker completed Former Smoker eCW1 ([facility]) Smoking 08/21/2020 12:00:00 AM EDT Former Smoker completed Former Smoker eCW1 ([facility]) Smoking 05/24/2020 12:00:00 AM EST Former Smoker completed Former Smoker eCW1 ([facility]) Smoking 05/24/2020 12:00:00 AM EST Former Smoker completed Former Smoker eCW1 ([facility]) Smoking 05/24/2020 12:00:00 AM EST Former Smoker completed Former Smoker eCW1 ([facility]) Vital Signs ID Date Data Source UNK Name Value Range Interpretation Code Description Data Source(s) Body weight 208.8 [lb_av] 208.8 [lb_av] eCW1 ([facility]) Body height 64 [in_i] 64 [in_i] eCW1 ([facility]) Body mass index (BMI) [Ratio] 35.84 kg/m2 35.84 kg/m2 eCW1 ([facility]) Heart rate 94 /min 94 /min eCW1 ([facility]) Respiratory rate 20 /min 20 /min eCW1 ([facility]) Body temperature 97.3 [degF] 97.3 [degF] eCW1 ( [facility]) Systolic blood pressure 142 mm[Hg] 142 mm[Hg] e CW1 ([facility]) Diastolic blood pressure 90 mm[Hg] 90 mm[Hg] eCW1 ([facility]) Body weight 209 [lb_av] 209 [lb_av] eCW1 ([facility]) Body height 64 [in_i] 64 [in_i] eCW1 ([facility]) Body mass index (BMI) [Ratio] 35.87 kg/m2 35.87 kg/m2 eCW1 ([facility]) Heart rate 84 /min 84 /min eCW1 ([facility]) Respiratory rate 20 /min 20 /min eCW1 ([facility]) Body temperature 96.4 [degF] 96.4 [degF] eCW1 ( [facility]) Systolic blood pressure 160 mm[Hg] 160 mm[Hg] e CW1 ([facility]) Diastolic blood pressure 100 mm[Hg] 100 mm[Hg] eCW1 ([facility]) Body weight 205 [lb_av] 205 [lb_av] eCW1 ([facility]) Body height 64 [in_i] 64 [in_i] eCW1 ([facility]) Body mass index (BMI) [Ratio] 35.18 kg/m2 35.18 kg/m2 eCW1 ([facility]) Heart rate 66 /min 66 /min eCW1 ([facility]) Respiratory rate 20 /min 20 /min eCW1 ([facility]) Body temperature 96.6 [degF] 96.6 [degF] eCW1 ( [facility]) Systolic blood pressure 142 mm[Hg] 142 mm[Hg] e CW1 ([facility]) Diastolic blood pressure mm[Hg] eCW1 ([facility]) Body weight 209 [lb_av] 209 [lb_av] eCW1 ([facility]) Body height 64 [in_i] 64 [in_i] eCW1 ([facility]) Body mass index (BMI) [Ratio] 35.87 kg/m2 35.87 kg/m2 eCW1 ([facility]) Heart rate 90 /min 90 /min eCW1 ([facility]) Respiratory rate 20 /min 20 /min eCW1 ([facility]) Body temperature 96.5 [degF] 96.5 [degF] eCW1 ( [facility]) Systolic blood pressure 190 mm[Hg] 190 mm[Hg] e CW1 ([facility]) Diastolic blood pressure 110 mm[Hg] 110 mm[Hg] eCW1 ([facility]) Body weight 217.8 [lb_av] 217.8 [lb_av] eCW1 ([facility]) Body height 64 [in_i] 64 [in_i] eCW1 ([facility]) Body mass index (BMI) [Ratio] 37.38 kg/m2 37.38 kg/m2 eCW1 ([facility]) Systolic blood pressure 154 mm[Hg] 154 mm[Hg] e CW1 ([facility]) Diastolic blood pressure 104 mm[Hg] 104 mm[Hg] eCW1 ([facility]) Body weight 216.2 [lb_av] 216.2 [lb_av] eCW1 ([facility]) Body height 64 [in_i] 64 [in_i] eCW1 ([facility]) Body mass index (BMI) [Ratio] 37.11 kg/m2 37.11 kg/m2 eCW1 ([facility]) Systolic blood pressure 152 mm[Hg] 152 mm[Hg] e CW1 ([facility]) Diastolic blood pressure 100 mm[Hg] 100 mm[Hg] eCW1 ([facility]) Body weight 217.2 [lb_av] 217.2 [lb_av] eCW1 ([facility]) Body height 64 [in_i] 64 [in_i] eCW1 ([facility]) Body mass index (BMI) [Ratio] 37.282 kg/m2 37.2 82 kg/m2 eCW1 ([facility]) Systolic blood pressure 152 mm[Hg] 152 mm[Hg] e CW1 ([facility]) Diastolic blood pressure 98 mm[Hg] 98 mm[Hg] eCW1 ([facility]) Patient Treatment Plan of Care Planned Activity Planned Date Details Description Data Source (s) Labetalol hydrochloride 200 MG Oral Tablet 12/14/2020 12:00:00 AM E DT eCW1 ([facility]) Labetalol hydrochloride 200 MG Oral Tablet 12/14/2020 12:00:00 AM E DT eCW1 ([facility]) Labetalol hydrochloride 200 MG Oral Tablet 12/14/2020 12:00:00 AM E DT eCW1 ([facility]) Labetalol hydrochloride 100 MG Oral Tablet 12/11/2020 12:00:00 AM E DT eCW1 ([facility]) 24 HR Metformin hydrochloride 500 MG Extended Release Oral Tablet 09/07/2020 12:00:00 AM EDT eCW1 ([facility]) 24 HR Metformin hydrochloride 500 MG Extended Release Oral Tablet 09/07/2020 12:00:00 AM EDT eCW1 ([facility])
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
--- OUTSIDE RECORDS SUMMARY | 2021-01-08 10:16 | CCD ---
Author Author [facility] Organization [facility] Address Unknown Phone Unavailable Care Team Providers Care Pet Crematory Worker Name Role Phone Daniella Azul Unavailable PROBLEMS Type Condition ICD9-CM Code YRC24-BN Code Onset Dates Condition S tatus W/U Status Risk SNOMED Code Notes Problem PCOS (polycystic ovarian syndrome) E28.2 Activ e confirmed [id number] Problem Gastroesophageal reflux disease, esophagitis pre sence not specified K21.9 Active confirmed [id number] Problem Obesity, unspecified obesity severity, unspecified obe sity type E66.9 Active confirmed 405894802 Problem Essential hypertension I10 Active confirmed 04356896 ALLERGIES No Known Allergies ENCOUNTERS from 1983 to 2020-12-17 Encounter Location Date Provider Diagnosis [address] [phone] [place] [address] Nov, Daniella Azul IMMUNIZATIONS Vaccine Route Administration Date Status Influenza [...] Education Language: Question Answer Notes Languages spoken: Spanish Baptism: Question Answer Notes Baptism 08 Mormon Drug and Alcohol Question Answer Notes Total Score: 0 Interpretation: No problems reported Alcohol Screening: Question Answer Notes Did you have a drink containing alcohol in the past year? No Points 0 Interpretation Negative Tobacco Use: Question Answer Notes Are you a: former smoker How long has it been since you last smoked? 5-10 years REASON FOR REFERRAL No Information VITAL SIGNS No information MEDICATIONS Medication SIG (Take, Route, Frequency, Duration) Notes Start Da te End Date Status 28-0.8 MG 1 tablet Orally Once a day Active Labetalol HCl 200 MG 1 tablet Orally Twice a day for 30 day(s) 24 Nov, 2020 Active metFORMIN HCl ER 500 MG 1 tablet with evening meal O rally Once a day for 30 day(s) Aug, Active PROCEDURES No Information RESULTS No Results REASON FOR VISIT Message MEDICAL (GENERAL) HISTORY Type Description Date Medical [...] No Information FUNCTIONAL STATUS No Information ASSESSMENTS No Information PLAN OF TREATMENT Medication Medication Name Sig Start Date Stop Date Labetalol HCl 200 MG 1 tablet Orally Twice a day for 30 day(s) 2 4 Nov, 2020 Next Appt Details Provider Name:Daniella Hoyos Jigararnie, 2020-12-20 08:45:00 AM, [address] [place] [address] , [place], [address], Provider Name:Daniella Hoyos Jigararnie, 2021-04-23 08:15:00 AM, [address] [place] [address] , [place], [address], Insurance Providers Payer Name Payer Address Payer Phone Insured Name Patient Relati onship to Insured Coverage Start Date Coverage End Date [facility] [id number] [facility] [address] KARMA JOINER self
[2021-01-08 10:50] VITALS: BP 148/98
== END 2021-01-08 10:54 | disposition home or self-care (01) ==
LOC: M ED 08:25
DX: R50.9 Fever, unspecified (principal); U07.1 COVID-19; E28.2 Polycystic ovarian syndrome; Z79.899 Other long term (current) drug therapy

== ENCOUNTER 2021-06-21 15:28 | Emergency (ER) | payer OTHER ==
[~2021-06-21] VITALS: Ht 162.6 cm; Wt 87.9 kg
[~2021-06-21 15:28] MED LIST changes: +LABE20TAB; +METF-838
[2021-06-21 17:40] LABS: BILIRUBIN, URINE MANUAL OBSCURED (NEGATIVE); GLUCOSE, URINE (UA) MANUAL OBSCURED mg/dL (NEGATIVE); KETONE, URINE MANUAL OBSCURED mg/dL (NEGATIVE); UROBILINOGEN, URINE MANUAL OBSCURED mg/dl (NORMAL)
[2021-06-21 17:50] LABS: AMORPHOUS SEDIMENT, URINE LARGE AMOUNT (NEGATIVE); BACTERIA, URINE SMALL AMOUNT; HYALINE CAST, URINE NONE SEEN /lpf (0-1); MUCUS, URINE SMALL AMOUNT (NEGATIVE); SQUAMOUS EPITHELIAL CELL URINE LARGE AMOUNT /hpf (SMALL AMT)
[2021-06-21] MEDS ORDERED: NITR1CAP11 PO (18:12)
[2021-06-21 19:23] VITALS: BP 143/89
== END 2021-06-21 19:25 | disposition home or self-care (01) ==
LOC: M ED 15:28
DX: N39.0 Urinary tract infection, site not specified (principal); I10 Essential (primary) hypertension; E28.2 Polycystic ovarian syndrome; Z79.899 Other long term (current) drug therapy

== ENCOUNTER → 2021-06-27 | Outpatient (CLI) | payer OTHER ==
[~2021-06-27] MED LIST changes: +NITR1CAP11 PO
[2021-06-27 17:15] LABS: HIV 1&2 SCREEN CENTAUR NEGATIVE (NEGATIVE)
[2021-06-27 17:46] LABS: GC DNA AMPLIFICATION NEGATIVE (NEGATIVE)
== END ==
LOC: M PLALAB 12:00
PROVIDERS: ATTEND Family Medicine
DX: Z11.3 Encounter for screening for infections with a predominantly sexual mode of transmission (principal)

== ENCOUNTER 2021-07-05 14:54 | Emergency (ER) | payer OTHER ==
[~2021-07-05] VITALS: Ht 162.6 cm; Wt 87.7 kg
[~2021-07-05 14:54] MED LIST changes: +RALTEGRAVIR 400 MG TAB (ISENTRESS) PO SCH; +TRUVADA 200MG/300MG TABLET PO SCH
[2021-07-05 15:54] LABS: BASO % 0.5 % (0.0-1.0); EOS # 0.1 10^3/uL (0.0-0.5); EOS % 1.4 % (0.0-3.0); HEMATOCRIT 32.5 % (36.0-47.0); HEMOGLOBIN 9.9 g/dl (12.0-15.5); LYMPH # 1.5 10^3/uL (1.5-5.0); LYMPH % 17.5 % (24.0-44.0); MEAN CORPUSCULAR HEMOGLOBIN 23.6 pg (27.0-33.0); MEAN CORPUSCULAR HGB CONC 30.5 g/dl (32.0-36.5); MEAN CORPUSCULAR VOLUME 77.4 fl (80.0-96.0); MONO # 0.4 10^3/uL (0.0-0.8); MONO % 4.4 % (2.0-8.0); NEUTROPHILS # 6.5 10^3/uL (1.5-8.5); NEUTROPHILS % 75.8 % (36.0-66.0); PLATELET COUNT, AUTOMATED 301 10^3/uL (150-450); WHITE BLOOD COUNT 8.6 10^3/uL (4.0-10.0)
[2021-07-05 16:22] LABS: HCG, SERUM QUALITATIVE NEGATIVE (NEGATIVE)
[2021-07-05 16:23] LABS: ALBUMIN 3.8 GM/DL (3.2-5.2); ALT/SGPT 21 U/L (12-78); BILIRUBIN,TOTAL 0.5 MG/DL (0.2-1.0); BLOOD UREA NITROGEN 19 MG/DL (7-18); CALCIUM LEVEL 8.7 MG/DL (8.5-10.1); CARBON DIOXIDE LEVEL 26 MEQ/L (21-32); CHLORIDE LEVEL 108 MEQ/L (98-107); CREATININE FOR GFR 0.81 MG/DL (0.55-1.30); GLOMERULAR FILTRATION RATE > 60.0 (>60); GLUCOSE, FASTING 92 MG/DL (70-100); POTASSIUM SERUM 3.8 MEQ/L (3.5-5.1); SODIUM LEVEL 141 MEQ/L (136-145); TOTAL PROTEIN 7.2 GM/DL (6.4-8.2)
[2021-07-05] MEDS ORDERED: BOOSTRIX/ADACEL VACCINE (DIPHTH/PERTUSS/ACELL/TETANUS) 0.5ML SYR IM ONE (16:25)
[2021-07-05] MEDS ORDERED: EXPOSURE KIT-ADULT 7 DAY SUPPLY PO ONE (16:25)
[2021-07-05] MEDS ORDERED: HEPATITIS B VACCINE 20MCG/ML 1ML SYRINGE (ADULT DOSE) IM ONE (16:25)
[2021-07-05] MEDS ORDERED: HEPATITIS B IMMUNE GLOBULIN 5ML INJ IM ONE (16:25)
[2021-07-05] MEDS ORDERED: RALT40TA PO (16:27)
[2021-07-05] MEDS ORDERED: EMTR1TAB16 PO (16:27)
[2021-07-05 16:32] LABS: HEPATITIS B SURFACE ANTIBODY POSITIVE (POSITIVE)
[2021-07-05] MEDS ORDERED: RALTEGRAVIR 400 MG TAB (ISENTRESS) PO ONE (16:35)
[2021-07-05] MEDS ORDERED: TRUVADA 200MG/300MG TABLET PO ONE (16:35)
[2021-07-05 16:42] LABS: HEPATITIS B SURFACE ANTIGEN NEGATIVE (NEGATIVE)
[2021-07-05 17:11] LABS: HEPATITIS C VIRUS ABY INDEX 0.1 INDEX (<0.8); HIV 1&2 SCREEN CENTAUR NEGATIVE (NEGATIVE)
[2021-07-05 17:32] VITALS: BP 152/89
== END 2021-07-05 17:34 | disposition home or self-care (01) ==
LOC: M ED 14:54
DX: S91.132A Puncture wound without foreign body of left great toe without damage to nail, initial encounter (principal); W46.0XXA Contact with hypodermic needle, initial encounter; Y92.89 Other specified places as the place of occurrence of the external cause; Y99.0 Civilian activity done for income or pay; Z77.21 Contact with and (suspected) exposure to potentially hazardous body fluids; I10 Essential (primary) hypertension; E28.2 Polycystic ovarian syndrome; Z79.899 Other long term (current) drug therapy

== ENCOUNTER → 2022-04-12 | Outpatient (CLI) | payer OTHER ==
[~2022-04-12] MED LIST changes: +EMTR1TAB16 PO; +RALT40TA PO; -RALTEGRAVIR 400 MG TAB (ISENTRESS) PO SCH; -TRUVADA 200MG/300MG TABLET PO SCH
[2022-04-12 11:03] LABS: BASO % 0.8 % (0.0-1.0); EOS # 0.1 10^3/uL (0.0-0.5); EOS % 1.6 % (0.0-3.0); HEMATOCRIT 35.8 % (36.0-47.0); HEMOGLOBIN 11.1 g/dl (12.0-15.5); LYMPH # 1.3 10^3/uL (1.5-5.0); LYMPH % 27.1 % (24.0-44.0); MEAN CORPUSCULAR HEMOGLOBIN 24.9 pg (27.0-33.0); MEAN CORPUSCULAR VOLUME 80.4 fl (80.0-96.0); MONO # 0.4 10^3/uL (0.0-0.8); MONO % 7.5 % (2.0-8.0); NEUTROPHILS # 3.1 10^3/uL (1.5-8.5); NEUTROPHILS % 62.8 % (36.0-66.0); PLATELET COUNT, AUTOMATED 252 10^3/uL (150-450); RED BLOOD COUNT 4.45 10^6/uL (4.00-5.40); WHITE BLOOD COUNT 4.9 10^3/uL (4.0-10.0)
[2022-04-12 11:28] LABS: ALBUMIN 3.5 G/DL (3.2-5.2); ALKALINE PHOSPHATASE 118 U/L (46-116); ALT/SGPT 11 U/L (7.0-40); AST/SGOT 11 U/L (<34); BILIRUBIN,TOTAL 0.6 MG/DL (0.3-1.2); BLOOD UREA NITROGEN 19 MG/DL (9-23); CARBON DIOXIDE LEVEL 27 MMOL/L (20-31); CHLORIDE LEVEL 108 MMOL/L (98-107); CHOLESTEROL LEVEL 139 MG/DL (<200); CREATININE FOR GFR 0.78 MG/DL (0.55-1.30); GLOMERULAR FILTRATION RATE > 60.0 (>60); GLUCOSE, FASTING 100 MG/DL (60-100); HDL CHOLESTEROL 57.8 MG/DL (>40); NON-HDL-C 81 MG/DL; POTASSIUM SERUM 4.2 MMOL/L (3.5-5.1); SODIUM LEVEL 142 MMOL/L (136-145); TOTAL PROTEIN 6.6 G/DL (5.7-8.2); TRIGLYCERIDES LEVEL 56 MG/DL (<150)
[2022-04-12 11:30] LABS: HEMOGLOBIN A1c 4.8 % (4.0-6.0)
[2022-04-12 11:31] LABS: THYROID STIMULATING HORMONE 0.877 uIU/ML (0.55-4.78)
== END ==
LOC: M LAB 09:01
PROVIDERS: ATTEND Physician Assistant
DX: E28.2 Polycystic ovarian syndrome (principal); I10 Essential (primary) hypertension; F41.9 Anxiety disorder, unspecified

== ENCOUNTER 2022-05-01 12:15 | Emergency (ER) | payer OTHER ==
[~2022-05-01] VITALS: Ht 162.6 cm; Wt 89.0 kg
[2022-05-01 12:15] VITALS: BP 187/114
[~2022-05-01 12:15] MED LIST changes: +LIDO15SO4 PO; -LIDO2SOL17 PO
[2022-05-01] MEDS ORDERED: SERT50TA29 (12:39)
== END 2022-05-01 13:45 | disposition left against medical advice (07) ==
LOC: M ED 12:15
DX: Z53.21 Procedure and treatment not carried out due to patient leaving prior to being seen by health care provider (principal)

== ENCOUNTER 2022-08-09 17:35 | Emergency (ER) | payer OTHER ==
[~2022-08-09] VITALS: Ht 162.6 cm; Wt 89.8 kg
[~2022-08-09 17:35] MED LIST changes: +LIDO15SO PO; -LIDO15SO4 PO; +SERT50TA29
[2022-08-09] MEDS ORDERED: CYCLOBENZAPRINE 5MG TABLET PO ONE (18:35)
[2022-08-09] MEDS ORDERED: KETOROLAC 30 MG/ML 1ML VIAL IM ONE (18:35)
[2022-08-09] MEDS ORDERED: CYCL-707 PO (20:14)
[2022-08-09] MEDS ORDERED: LIDO5DIS41 TD (20:14)
[2022-08-09] MEDS ORDERED: KETO10TAB PO (20:14)
[2022-08-09 20:24] VITALS: BP 210/112
== END 2022-08-09 20:32 | disposition home or self-care (01) ==
LOC: M ED 17:35
DX: M51.36 Other intervertebral disc degeneration, lumbar region (principal); I10 Essential (primary) hypertension; Z87.442 Personal history of urinary calculi; E28.2 Polycystic ovarian syndrome; Z79.84 Long term (current) use of oral hypoglycemic drugs; Z79.899 Other long term (current) drug therapy
CPT/HCPCS: 72131; 96372; 99283; J1885

== ENCOUNTER → 2022-09-17 | Outpatient (CLI) | payer OTHER ==
[~2022-09-17] MED LIST changes: +CYCL-707 PO; +LIDO5DIS41 TD
[2022-09-17 18:37] LABS: BASO % 0.6 % (0.0-1.0); EOS # 0.1 10^3/uL (0.0-0.5); EOS % 1.3 % (0.0-3.0); HEMATOCRIT 32.7 % (36.0-47.0); HEMOGLOBIN 9.5 g/dl (12.0-15.5); LYMPH # 1.3 10^3/uL (1.5-5.0); MEAN CORPUSCULAR HEMOGLOBIN 20.9 pg (27.0-33.0); MEAN CORPUSCULAR HGB CONC 29.1 g/dl (32.0-36.5); MONO # 0.5 10^3/uL (0.0-0.8); MONO % 9.8 % (2.0-8.0); NEUTROPHILS # 3.5 10^3/uL (1.5-8.5); NEUTROPHILS % 63.9 % (36.0-66.0); PLATELET COUNT, AUTOMATED 218 10^3/uL (150-450); RED BLOOD COUNT 4.54 10^6/uL (4.00-5.40); WHITE BLOOD COUNT 5.4 10^3/uL (4.0-10.0)
[2022-09-17 18:45] LABS: ALBUMIN 3.3 G/DL (3.2-5.2); ALKALINE PHOSPHATASE 123 U/L (46-116); ALT/SGPT < 9 U/L (7.0-40); AST/SGOT < 8 U/L (<34); BILIRUBIN,TOTAL 0.4 MG/DL (0.3-1.2); BLOOD UREA NITROGEN 11 MG/DL (9-23); CALCIUM LEVEL 8.2 MG/DL (8.5-10.1); CARBON DIOXIDE LEVEL 28 MMOL/L (20-31); CHLORIDE LEVEL 107 MMOL/L (98-107); CREATININE FOR GFR 0.82 MG/DL (0.55-1.30); GLOMERULAR FILTRATION RATE > 60.0 (>60); GLUCOSE, FASTING 90 MG/DL (60-100); POTASSIUM SERUM 4.2 MMOL/L (3.5-5.1); SODIUM LEVEL 140 MMOL/L (136-145); TOTAL PROTEIN 6.3 G/DL (5.7-8.2)
[2022-09-18 16:29] LABS: IRON (FE) 17 UG/DL (50-170); PERCENT SATURATION 4.6 % (13.2-45.0); TOTAL IRON BINDING CAPACITY 369 UG/DL (250-425)
[2022-09-18 16:32] LABS: VITAMIN B12 LEVEL 281 PG/ML (211-911)
== END ==
LOC: M PLALAB 15:52
PROVIDERS: ATTEND Physician Assistant
DX: D64.9 Anemia, unspecified (principal); R19.7 Diarrhea, unspecified

== ENCOUNTER → 2022-11-05 | Outpatient (CLI) | payer OTHER | LOC: M PLAIMG 13:49 | PROVIDERS: ATTEND Family Medicine | DX: M51.26 Other intervertebral disc displacement, lumbar region (principal) ==

== ENCOUNTER → 2023-03-31 | Outpatient (REF) | payer OTHER | LOC: M SFHCPLAZ 17:01 | PROVIDERS: ATTEND Nurse Practitioner Adult Health | DX: R68.89 Other general symptoms and signs (principal) ==

== ENCOUNTER 2023-05-13 09:47 | Day surgery (SDC) | payer OTHER ==
[~2023-05-13] VITALS: Ht 160 cm; Wt 85.6 kg
[~2023-05-13 09:47] MED LIST changes: -LABE20TAB; +LABE20TAB PO
[2023-05-13] MEDS: NS 1,000 ML IV ONE (10:08)
[2023-05-13] MEDS ORDERED: LIDOCAINE 2% 100MG/5ML SDV (FOR ANES.) As Ordered ONE (11:39)
[2023-05-13] MEDS ORDERED: propofoL 200 MG/20 ML VIAL As Ordered ONE (11:39)
[2023-05-13 12:31] VITALS: O2SAT 100
[2023-05-13] MEDS ORDERED: LABETALOL 100MG/20ML VIAL As Ordered ONE (12:46)
[2023-05-13 12:49] VITALS: BP 187/105
[2023-05-13] MEDS: LABETALOL 100MG/20ML VIAL IV ONE (12:49)
[2023-05-13 13:05] VITALS: BP 168/94
== END 2023-05-13 13:15 | disposition home or self-care (01) ==
LOC: M OPP 09:47
PROVIDERS: ATTEND Internal Medicine Gastroenterology
DX: K64.0 First degree hemorrhoids (principal); K63.5 Polyp of colon; R19.4 Change in bowel habit; Z87.891 Personal history of nicotine dependence; Z79.84 Long term (current) use of oral hypoglycemic drugs; Z79.899 Other long term (current) drug therapy
CPT/HCPCS: 45380; 88305; J1920

== ENCOUNTER 2023-12-28 23:17 | Emergency (ER) | payer SELFPAY ==
[~2023-12-28 23:17] MED LIST changes: -LIDO15SO PO; +LIDO15SO8 PO; +NITR100C3 PO; -NITR1CAP11 PO
[2023-12-29] MEDS ORDERED: HYDR-3713 PO (01:12)
[2023-12-29] MEDS: ONDANSETRON 4MG 2ML VIAL IV ONE (01:17)
[2023-12-29] MEDS: MORPHINE 2 MG/ML 1ML VIAL IV ONE (01:18)
[2023-12-29] MEDS: ANEXSIA, NORCO 7.5MG/325MG TABLET(HYDROCODONE/APAP) PO ONE (01:42)
[2023-12-29 02:24] VITALS: BP 202/114
[2023-12-29] MEDS: LABETALOL 100MG/20ML VIAL IV STA (02:24)
[2023-12-29 02:45] VITALS: BP 147/82; O2SAT 98
== END 2023-12-29 02:47 | disposition home or self-care (01) ==
LOC: M ED 23:17
DX: S00.83XA Contusion of other part of head, initial encounter (principal); Y92.9 Unspecified place or not applicable; Y93.9 Activity, unspecified; Y99.9 Unspecified external cause status; Y04.2XXA Assault by strike against or bumped into by another person, initial encounter; Z79.1 Long term (current) use of non-steroidal anti-inflammatories (NSAID); Z79.899 Other long term (current) drug therapy
CPT/HCPCS: 70450; 70486; 72125; 96374; 96375; 99284; J1920; J2405

== ENCOUNTER → 2024-06-20 | Outpatient (REF) | payer OTHER ==
[~2024-06-20] MED LIST changes: +HYDR-3713 PO
[2024-06-20 14:58] LABS: APPEARANCE, URINE HAZY (CLEAR); BACTERIA, URINE AUTO 3+ (NEGATIVE); BILIRUBIN, URINE AUTO NEGATIVE (NEGATIVE); BLOOD, URINE BLOOD 3+ (NEGATIVE); COLOR, URINE YELLOW (YELLOW); GLUCOSE, URINE (UA) AUTO NEGATIVE (NEGATIVE); KETONE, URINE AUTO NEGATIVE (NEGATIVE); LEUKOCYTE ESTERASE, URINE AUTO NEGATIVE (NEGATIVE); MUCUS, URINE SMALL (NEGATIVE); NITRITE, URINE AUTO NEGATIVE (NEGATIVE); PROTEIN, URINE AUTO NEGATIVE (NEGATIVE); RBC, URINE AUTO 48 /HPF (0-3); SPECIFIC GRAVITY URINE AUTO 1.018 (1.002-1.035); SQUAMOUS EPITHELIAL CELL UR AU 2 /HPF (0-6); UROBILINOGEN, URINE AUTO 0.2 mg/dL (0.0-2.0); WBC, URINE AUTO 2 /HPF (0-3)
[2024-06-20 16:07] LABS: Trichomonas vaginalis (AMP) NOT DETECTED (NEGATIVE)
[2024-06-20 16:31] LABS: GC DNA AMPLIFICATION NEGATIVE (NEGATIVE)
== END ==
LOC: M LAB REF 14:14
PROVIDERS: ATTEND Physician Assistant Medical
DX: N39.0 Urinary tract infection, site not specified (principal); Z11.3 Encounter for screening for infections with a predominantly sexual mode of transmission

== ENCOUNTER 2024-07-16 20:53 | Emergency (ER) | payer OTHER ==
[~2024-07-16] VITALS: Ht 157.5 cm; Wt 89.3 kg
[2024-07-16] MEDS: LABETALOL 200 MG TAB PO ONE (21:47)
[2024-07-16] MEDS: BOOSTRIX VACCINE (TETANUS/DIPHTH/ACEL. PERTUSSIS) 0.5ML SYR IM ONE (21:47)
[2024-07-16] MEDS: ACETAMINOPHEN 500 MG TAB PO ONE (21:50)
[2024-07-16] MEDS: DERMABOND TOPICAL SKIN ADHESIVE TOP ONE (21:51)
[2024-07-16 23:00] VITALS: BP 218/113
[2024-07-16 23:15] VITALS: TEMP 98; O2SAT 98
== END 2024-07-16 23:23 | disposition home or self-care (01) ==
LOC: M ED 20:53
DX: S01.81XA Laceration without foreign body of other part of head, initial encounter (principal); Y92.019 Unspecified place in single-family (private) house as the place of occurrence of the external cause; Y93.9 Activity, unspecified; Y99.9 Unspecified external cause status; I10 Essential (primary) hypertension; Z79.899 Other long term (current) drug therapy; Z23 Encounter for immunization